=== PATIENT | female | born 1995 | race Hispanic/Latino ===

== ENCOUNTER 2025-03-02 10:26 | Emergency (ER) | payer OTHER, SELFPAY ==
[2025-03-02] VITALS (16 sets, daily range): BP systolic 123–141; BP diastolic 60–95; PULSE 62–88; RESP 14–22; TEMP 36.9; O2SAT 98–100
--- NOTE | ~2025-03-02 | CT_ITS ---
CT brain wo con Ordering provider: Prerna Ashley MD History: 29 years Female with . right facial droop . Comparison: None. Technique: CT of the head without contrast. Radiation reduction technique utilized.The dose-length pr oduct was 605.33 mGy-cm. FINDINGS: BRAIN PARENCHYMA AND CSF SPACES: No midline shift, mass effect or hemorrhage. The brain parenchyma a nd CSF spaces are otherwise normal. VISUALIZED PARANASAL SINUSES: Well aerated. MASTOIDS: Well aerated. BONES: The bones appear intact. SOFT TISSUES: Visualized nasopharynx is normal. Superficial soft tissues are normal. IMPRESSION: No acute intracranial findings. Reviewed, dictated and finalized at location A.
--- NOTE | ~2025-03-02 | CT_ITS ---
EXAMINATION: CTA BRAIN/CAROTID DATE: 03/02/2025 14:40 INDICATION: Headache and facial weakness TECHNIQUE: Computed tomographic angiography (CTA) of the head and neck was performed with 100 mL Omni paque-350 intravenous contrast. Multiplanar reconstructions and maximum intensity projection 3D-recon structions of the carotid arteries and of the intracranial arteries were created by the technologist on a separate workstation. Automated exposure control and iterative reconstruction technique were emp loyed.The dose-length product was 1126.15 mGy-cm. COMPARISON: None. FINDINGS: Carotid arteries: Aortic arch and great vessels arising from the arch are normal in caliber with no atherosclerotic joss que or dissection. There is no evident atherosclerotic plaque with 0% stenosis of the right and left carotid bulbs relative to normal distal artery lumen diameter (NASCET criteria). Bilateral vertebral arteries are codominant with no evident atherosclerotic plaque or stenosis. Cervical soft tissues are unremarkable. Diffuse groundglass opacities in the upper lungs likely related to expiratory phase of imaging. Bones are unremarkable. Intracranial arteries Vertebral arteries are codominant. There is no hemodynamically significant stenosis in the vertebral, basilar and internal carotid arteries. Both A1 and P1 segments are patent. There is also a patent an terior communicating artery. There are no aneurysms identified. Cerebral arterial arborization appea rs symmetric. No abnormally enhancing brain lesions. IMPRESSION: 1. No evident atherosclerotic plaque with 0% stenosis of the right carotid bulb relative to normal di stal artery lumen diameter (NASCET criteria). 2. Unremarkable cerebral CT angiogram with no hemodynamically significant stenosis, aneurysm or disse ction. Reviewed, dictated and finalized at location A. IMPRESSION: 1. No evident atherosclerotic plaque with 0% stenosis of the right carotid bulb relative to normal distal artery lumen diameter (NASCET criteria). 2. Unremarkable cerebral CT angiogram with no hemodynamically significant steno sis, aneurysm or dissection.
--- NOTE | ~2025-03-02 | XR_ITS ---
Portable chest x-ray Comparison: None Clinical History: Chest pain Findings: Lungs are clear, without focal consolidation or pleural effusion. Cardiomediastinal silho uette is unremarkable. Bones and soft tissues are unremarkable. Impression: Normal chest. Reviewed, dictated and finalized at location . Impression: Normal chest.
--- NOTE | 2025-03-02 11:17 | ECG_ITS ---
Test Date: 2025-03-02 11:32:44 Measurements Intervals [place] Rate: 74 P: 32 [place]: 161 QRS: 42 QRSD: 80 T: 9 QT: 362 QTc: 403 Interpretive Statements SINUS RHYTHM NORMAL ELECTROCARDIOGRAM No previous ECG available for comparison Electronically Signed On 03-02-2025 15:45:19 CDT by Jacobo Quintero M.D.
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
--- OUTSIDE RECORDS SUMMARY | 2025-03-02 11:19 | XMS_ITS | Referral Summary ---
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, severe stage (Primary Dx) 12/31/2024 8:00 AM RN HEMATOLOGY Imaging Exam [facility] Ophthalmology [address] [place] [address] [phone] 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 Never 11/27/2022 Do you belong to any clubs o r organizations such as congregation groups, unions, fraternal or athletic groups, or [...] medical care, and heating? Somewhat hard 11/27/2022 [facility] - Occupational Stress [...] place to sleep or slept in a nursing home (including now)? 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 OCT, OPTIC NERVE - OU - BOTH EYES Routine 12/31/2024 7:48 AM RN HEMATOLOGY 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 PAP WITH REFLEX TO HIGH RISK HPV Routine 12/12/2022 4:18 PM RN HEMATOLOGY , unspecified gestational age HEPATITIS C ANTIBODY Routine 11/27/2022 12:22 PM RN HEMATOLOGY care, antepartum from Last 3 Months or Most Recently Relevant to Health Maintenance Results * Ruiz Visual Field - OU - Both Eyes (12/31/2024 8:14 AM RN HEMATOLOGY) Pattern Deviation OS 1.30 dB CONTINUUM Pattern Deviation OD 16.32 dB CONTINUUM Mean Deviation OS -0.22 dB CONTINUUM Mean Deviation OD -15.52 dB CONTINUUM Anatomical Region Laterality Modality Head Other Narrative 12/31/2024 5:32 PM RN HEMATOLOGY Right Eye Fixation was good. Cooperation was [...] hemifield deficit with central sparing OS: wnl us Cely Rubio MD OPH VISUAL FIELD Final Result * OCT, Optic Nerve - OU - Both Eyes (12/31/2024 7:48 AM RN HEMATOLOGY) RNFL OS 110 micrometers CONTINUUM RNFL OD 66 micrometers CONTINUUM Anatomical Region Laterality Modality Head Other Narrative 12/31/2024 5:32 PM RN HEMATOLOGY Right Eye Reliability was good. Temporal thickness [...] to High Risk HPV (12/12/2022 4:18 PM RN HEMATOLOGY) Thin prep (Pap test) 12/12/2022 4:18 PM RN HEMATOLOGY 12/12/2022 5:24 PM RN HEMATOLOGY Narrative PATHOLOGY [facility] - 12/16/2022 12:08 PM RN HEMATOLOGY EPIC results best viewed via link to PDF [facility] [place] [address] Note to Patients: This report may contain [...] the details. CYTOPATHOLOGY REPORT FINAL Patient Name: ALEJANDRO JENSEN Gender: F : 1995 (Age: 27) Address: [address] [place] [address] Hospital #: [id number] Service: UNKNOWN Location: Patient Type: [facility] SPECIMEN Taken: 12/12/2022 Received: 12/12/2022 Accessioned: 12/12/2022 Reported: 12/16/2022 Physician(s): Ariela Dias MD FINAL INTERPRETATION SOURCE OF SPECIMEN Liquid based Thin Prep pap with Reflex HPV: STATEMENT OF ADEQUACY - Satisfactory for evaluation - Endocervical cells/transformation zone sample present GENERAL CATEGORIZATION: - Negative for squamous intraepithelial lesion or malignancy DESCRIPTION: - Shift in otto suggestive of bacterial vaginosis ml/12/16/2022 12:08 Brandy Santos MS, CT (ASCP) Report Electronically Reviewed and Signed Out By Brandy Santos MS, CT (ASCP) 12/16/2022 12:08:17 Cervicovaginal Cytology (Pap Test) Disclaimer: The Pap test is a screening test used to detect cervical cancer and its precursors; it is not a diagnostic procedure. False negative and false positive results do occur. Pap test results should be interpreted in the context of pertinent clinical information and biopsy results as indicated. [facility] Clinical Laboratory Improvement Amendments (CLIA) mandate that cytologic and histologic results be correlated for laboratory quality control chemist & improvement standards. FOR ALL HIGH-GRADE CASES [...] determined by the Surgical Pathology Department at [facility] as part of an ongoing plant quality manager program and in compliance with federally mandated [...] determined by the Surgical Pathology Department of [facility]. It has not been cleared or approved by the [place]. [place]. Food and Drug Administration. Ariela Dias MD LAB CYTOLOGY ORDERABLES Final Result PATHOLOGY [facility] [address] Floor [place], [place] [phone] * Hepatitis C antibody (11/27/2022 12:22 PM RN HEMATOLOGY) Hep C Ab Nonreactive Nonreactive [facility] Comment:Antibodies to HCV no t detected. Does NOT exclude the possibility of recent exposure to HCV. Current interpretive data was last revised on 22 Blood 11/27/2022 12:2 2 PM RN HEMATOLOGY 11/27/2022 2:06 PM RN HEMATOLOGY us Ariela Dias MD LAB MICROBIOLOGY - GENER AL ORDERABLES Final Result [facility] Department [place] [address] from Last 3 Months or Most Recently Relevant to Health Maintenance Insurance [facility] Advance Directives For more information, please contact: [phone] * Full Code (Latest Code Status on File) Date Activated Date Inactivated Comments 05/30/2023 10:01 AM 06/01/2023 5:11 PM * Full Code Date Activated Date Inactivated Comments 05/29/2023 9:25 AM 05/30/2023 10:01 AM Full CPR in c ase of cardiopulmonary arrest Care Teams Show Card Writer Relationship Specialty Start Date End Date Leta Graff PA [address] [place] [address] PCP - General 03/13/20 Norma Kevin, [employer] [place] [address] Primary Eye Care Provider Optometry 02/06/22
--- OUTSIDE RECORDS SUMMARY | 2025-03-02 11:20 | XMS_ITS | Data Portability ---
Author Organization [facility] JAILENEJessi Oliva Address [address] [place] [address] Care Team Providers Care Lubricating Specialist Name Role Phone GIA BRADLEY Primary Care Provider Assessment Encounter Date Assessment Date Assessment LastModified by Organization Details LastModified Time 03/03/2021 03/03/2021 SEBASTIAN Tam Not available 03/03/2021 12:58:48 03/20/2022 03/20/2022 SEBASTIAN Jacinto Not available 03/20/2022 13:03:28 04/03/2022 04/03/2022 SEBASTIAN Jacinto [email or web address] Not available 04/03/2022 13:42:13 Plan of Treatment Reminders Order Date Submit Date Provider Last Modified By Organization Details Last Modified Time Details Appointments None recorded. Lab TSH, ultra-sens itive, serum 2021 022 [facility], [address], [address], [place], [address], 07:12:53 HbA1c (hemoglobi n A1c), blood 2021 022 [facility], [address], [address], [place], [address], 07:12:51 CMP, serum or plasma 2021 022 [facility], [address], [address], [place], [address], 2 07:12:47 CBC w/ auto diff 2021 [facility], 2022 Mirna Williamson, [address], [place], [address], 2 07:12:46 vitamin D, 25-hydroxy , total, serum 2021 [facility], 2022 Mirna Wliliamson, [address], [place], [address], 2 07:12:52 lipid panel, serum 2021 [facility], 2022 [address], [address], [place], [address], 2 07:12:50 urinalysis , complete 2021 [facility], 2022 Mir[address] Williamson, [address], [place], [address], 2 07:12:49 Referral orthopedic referral - Possible right distal fibula fracture - waiting on OSH xray reports, w/o crutches or splint 2020 [facility], [address], [place], [address], 15:32:51 Procedures None recorded. Surgeries None recorded. Imaging XR, lumbosacra l spine, 2 or 3 view 2021 [facility] ([facility]), [address] [place], [address], 2 15:07:04 Medication Orders fluoxetine 40 mg capsule 2021 [id number], [address], [place], [id number], 10:48:03 cyclobenza leydi 10 mg tablet 2021 [id number], [address], [place], [id number], 13:22:55 fluoxetine 20 mg tablet [address] [facility]04286, [address], [place], [id number], 10:48:01 amoxicilli n 875 mg tablet 2021 [facility]110, [address], [place], [id number], 11:58:11 dextrometh orphan-gua ifenesin 10 mg-100 mg/5 mL oral syrup 2021 [facility]854, [address], [place], [id number], 11:58:37 diclofenac sodium 75 mg tablet,del ayed release 2021 [facility]57258, [address], [place], [id number], 12:40:52 fluoxetine 20 mg capsule 2021 022 [facility] #77709, [address], [place], [id number], 12:41:02 tramadol 50 mg tablet [address] [facility][id number], [address], [place], [id number], 09:30:45 ibuprofen 800 mg tablet 2020 021 [facility] #85416, [address] [place], [id number], 09:43:08 Patient TargetsNo targets recorded. Patient Instructions Encounter Date Encounter Id Patient Instructions Last Modified By Organization Details Last Modified Time 03/20/2022 [id number] learning about control: the patch Not available 03/20/2022 10:46:27 learning about control: combination pills Not available 03/20/2022 10:46:27 learning about control: the ring Not available 03/20/2022 10:46:27 learning about control: the shot Not available 03/20/2022 10:46:27 learning about control: intrauterine device (iud) Not available 03/20/2022 10:46:27 A healthy lifestyle: care instructions Not available 03/20/2022 10:45:16 07/07/2022 [id number] A healthy lifestyle: care instructions Not available 07/07/2022 14:20:35 07/21/2022 [id number] A healthy lifestyle: care instructions Not available 07/21/2022 10:47:19 Reason for Referral Orthopedic Referral for Frac ture of ankle Possible right distal fibula fracture - waiting on OSH xray reports, w/o crutches or splint Referring Physician: Gia Bradley, Beach Attendant, Encounter Date: 03/03/2021 Results Created Date Observation Date Name Description Value Unit Range Abnormal Flag Note LastModifiedBy Organization Detail LastModifiedTime 03/20/20 22 03/21/2022 CBC WITH DIFFE RENTI AL/PL ATELE T WBC 11.6 x10e3 /uL 3.4-10 .8 above high normal Not Available [facility] ([facility]) [address] [facility], [place], [address], 03/21/2022 07:12:46 03/20/20 22 03/21/2022 CBC WITH DIFFE RENTI AL/PL ATELE T RBC 4.96 x10e6 /uL 3.77-5 .28 Not Available [facility] ([facility]) [address] [place], [address], 03/21/2022 07:12:46 03/20/20 22 03/21/2022 CBC WITH DIFFE RENTI AL/PL ATELE T hemoglobin 15.1 g/dL 11.1-1 5.9 Not Available [facility] ([facility]) [address] [place], [address], 03/21/2022 07:12:46 03/20/2003/21/2022 CBC WITH DIFFE RENTI AL/PL ATELE T hematocrit 46.8 % 34.0-4 6.6 above high normal Not Available [facility] ([facility]) [address] [place], [address], 03/21/2022 07:12:46 03/20/20 22 03/21/2022 CBC WITH DIFFE RENTI AL/PL ATELE T MCV 94 fL 79-97 Not Available [facility] ([facility]) [address] [place], [address], 03/21/2022 07:12:46 03/20/20 22 03/21/2022 CBC WITH DIFFE RENTI AL/PL ATELE T MCH 30.4 pg 26.6-3 3.0 Not Available [facility] ([facility]) [address] [place], [address], 03/21/2022 07:12:46 03/20/20 22 03/21/2022 CBC WITH DIFFE RENTI AL/PL ATELE T MCHC 32.3 g/dL 31.5-3 5.7 Not Available [facility] ([facility]) [address] [place], [address], 03/21/2022 07:12:46 03/20/20 22 03/21/2022 CBC WITH DIFFE RENTI AL/PL ATELE T RDW 12.4 % 11.7-1 5.4 Not Available [facility] ([facility]) [address] [facility], [place], [address], 03/21/2022 07:12:46 03/20/20 22 03/21/2022 CBC WITH DIFFE RENTI AL/PL ATELE T platelets 372 x10e3 /uL 150-45 0 Not Available [facility] ([facility]) [address] [facility], [place], [address], 03/21/2022 07:12:46 03/20/20 22 03/21/2022 CBC WITH DIFFE RENTI AL/PL ATELE T neutrophils 61 % not estab. Not Available [facility] ([facility]) [address] [facility], [place], [address], 03/21/2022 07:12:46 03/20/20 22 03/21/2022 CBC WITH DIFFE RENTI AL/PL ATELE T lymphs 30 % not estab. Not Available [facility] ([facility]) [address] [place], [address], 03/21/2022 07:12:46 03/20/20 22 03/21/2022 CBC WITH DIFFE RENTI AL/PL ATELE T monocytes 7 % not estab. Not Available [facility] ([facility]) [address] [place], [address], 03/21/2022 07:12:46 03/20/20 22 03/21/2022 CBC WITH DIFFE RENTI AL/PL ATELE T eos 1 % not estab. Not Available [facility] ([facility]) [address] [place], [address], 03/21/2022 07:12:46 03/20/20 22 03/21/2022 CBC WITH DIFFE RENTI AL/PL ATELE T basos 0 % not estab. Not Available [facility] ([facility]) [address] [place], [address], 03/21/2022 07:12:46 03/20/20 22 03/21/2022 CBC WITH DIFFE RENTI AL/PL ATELE T immature cells LIFT TRUCK MECHANIC Not Available [facility] ([facility]) [address] [place], [address], 03/21/2022 07:12:46 03/20/20 22 03/21/2022 CBC WITH DIFFE RENTI AL/PL ATELE T neutrophils (absolute) 7.1 x10e3 /uL 1.4-7. 0 above high normal Not Available [facility] ([facility]) [address] [place], [address], 03/21/2022 07:12:46 03/20/20 22 03/21/2022 CBC WITH DIFFE RENTI AL/PL ATELE T lymphs (absolute) 3.5 x10e3 /uL 0.7-3. 1 above high normal Not Available [facility] ([facility]) [address] [place], [address], 03/21/2022 07:12:46 03/20/20 22 03/21/2022 CBC WITH DIFFE RENTI AL/PL ATELE T monocytes(ab solute) 0.8 x10e3 /uL 0.1-0. 9 Not Available [facility] ([facility]) [address] [place], [address], 03/21/2022 07:12:46 03/20/20 22 03/21/2022 CBC WITH DIFFE RENTI AL/PL ATELE T eos (absolute) 0.1 x10e3 /uL 0.0-0. 4 Not Available [facility] ([facility]) [address] [place], [address], 03/21/2022 07:12:46 03/20/20 22 03/21/2022 CBC WITH DIFFE RENTI AL/PL ATELE T baso (absolute) 0.0 x10e3 /uL 0.0-0. 2 Not Available [facility] ([facility]) [address] [facility] [place], [address], 03/21/2022 07:12:46 03/20/20 22 03/21/2022 CBC WITH DIFFE RENTI AL/PL ATELE T immature granulocytes 1 % not estab. Not Available [facility] ([facility]) [address] [facility], [place], [address], 03/21/2022 07:12:46 03/20/20 22 03/21/2022 CBC WITH DIFFE RENTI AL/PL ATELE T immature grans (abs) 0.1 x10e3 /uL 0.0-0. 1 Not Available [facility] ([facility]) [address] [facility], [place], [address], 03/21/2022 07:12:46 03/20/20 22 03/21/2022 CBC WITH DIFFE RENTI AL/PL ATELE T NRBC LIFT TRUCK MECHANIC Not Available [facility] ([facility]) [address] [facility], [place], [address], 03/21/2022 07:12:46 03/20/20 22 03/21/2022 CBC WITH DIFFE RENTI AL/PL ATELE T hematology comments: LIFT TRUCK MECHANIC Not Available [facility] ([facility]) [address] [place], [address], 03/21/2022 07:12:46 03/20/20 22 03/21/2022 COMP. METAB OLIC PANEL (14) glucose 103 mg/dL 65-99 above high normal Not Available [facility] ([facility]) [address] [place], [address], 03/21/2022 07:12:47 03/20/20 22 03/21/2022 COMP. METAB OLIC PANEL (14) BUN 11 mg/dL 6-20 Not Available [facility] ([facility]) [address] [place], [address], 03/21/2022 07:12:47 03/20/20 22 03/21/2022 COMP. METAB OLIC PANEL (14) creatinine 0.67 mg/dL 0.57-1 .00 Not Available [facility] ([facility]) [address] [place], [address], 03/21/2022 07:12:47 03/20/20 22 03/21/2022 COMP. METAB OLIC PANEL (14) eGFR 125 mL/mi n/1.7 3 >59 Not Available [facility] ([facility]) [address] [facility] [place], [address], 03/21/2022 07:12:47 03/20/20 22 03/21/2022 COMP. METAB OLIC PANEL (14) BUN/creatini ne ratio 16 9-23 Not Available [facility] ([facility]) [address] [facility] [place], [address], 03/21/2022 07:12:47 03/20/20 22 03/21/2022 COMP. METAB OLIC PANEL (14) sodium 141 mmol/ L 134-14 4 Not Available [facility] ([facility]) [address] [facility] [place], [address], 03/21/2022 07:12:47 03/20/20 22 03/21/2022 COMP. METAB OLIC PANEL (14) potassium 4.6 mmol/ L 3.5-5. 2 Not Available [facility] ([facility]) [address] [facility] [place], [address], 03/21/2022 07:12:47 03/20/20 22 03/21/2022 COMP. METAB OLIC PANEL (14) chloride 106 mmol/ L 96-106 Not Available [facility] ([facility]) [address] [facility] [place], [address], 03/21/2022 07:12:47 03/20/20 22 03/21/2022 COMP. METAB OLIC PANEL (14) carbon dioxide, total 16 mmol/ L 20-29 below low normal Not Available [facility] ([facility]) [address] [facility], [place], [address], 03/21/2022 07:12:47 03/20/20 22 03/21/2022 COMP. METAB OLIC PANEL (14) calcium 9.6 mg/dL 8.7-10 .2 Not Available [facility] ([facility]) [address] [facility], [place], [address], 03/21/2022 07:12:47 03/20/20 22 03/21/2022 COMP. METAB OLIC PANEL (14) protein, total 7.5 g/dL 6.0-8. 5 Not Available [facility] ([facility]) [address] [facility], [place], [address], 03/21/2022 07:12:47 03/20/20 22 03/21/2022 COMP. METAB OLIC PANEL (14) albumin 4.4 g/dL 3.9-5. 0 Not Available [facility] ([facility]) [address] [facility], [place], [address], 03/21/2022 07:12:47 03/20/20 22 03/21/2022 COMP. METAB OLIC PANEL (14) globulin, total 3.1 g/dL 1.5-4. 5 Not Available [facility] ([facility]) [address] [facility], [place], [address], 03/21/2022 07:12:47 03/20/20 22 03/21/2022 COMP. METAB OLIC PANEL (14) A/G ratio 1.4 1.2-2. 2 Not Available [facility] ([facility]) [address] [facility], [place], [address], 03/21/2022 07:12:47 03/20/20 22 03/21/2022 COMP. METAB OLIC PANEL (14) bilirubin, total <0.2 mg/dL 0.0-1. 2 Not Available [facility] ([facility]) [address] [place], [address], 03/21/2022 07:12:47 03/20/20 22 03/21/2022 COMP. METAB OLIC PANEL (14) alkaline phosphatase 121 IU/L 44-121 Not Available [facility] ([facility]) [address] [facility], [place], [address], 03/21/2022 07:12:47 03/20/20 22 03/21/2022 COMP. METAB OLIC PANEL (14) AST (SGOT) 21 IU/L 0-40 Not Available [facility] ([facility]) [address] [facility], [place], [address], 03/21/2022 07:12:47 03/20/20 22 03/21/2022 COMP. METAB OLIC PANEL (14) ALT (SGPT) 18 IU/L 0-32 Not Available [facility] ([facility]) [address] [place], [address], 03/21/2022 07:12:47 03/20/20 22 03/21/2022 URINA LYSIS , COMPL ETE specific gravity 1.027 1.005- 1.030 Not Available [facility] ([facility]) [address] [place], [address], 03/21/2022 07:12:48 03/20/20 22 03/21/2022 URINA LYSIS , COMPL ETE pH 5.5 5.0-7. 5 Not Available [facility] ([facility]) [address] [place], [address], 03/21/2022 07:12:48 03/20/20 22 03/21/2022 URINA LYSIS , COMPL ETE urine-color Yellow yellow Not Available [facility] ([facility]) [address] [place], [address], 03/21/2022 07:12:48 03/20/20 22 03/21/2022 URINA LYSIS , COMPL ETE appearance Clear clear Not Available [facility] ([facility]) [address] [facility], [place], [address], 03/21/2022 07:12:48 03/20/20 22 03/21/2022 URINA LYSIS , COMPL ETE WBC esterase Negati ve negati ve Not Available [facility] ([facility]) [address] [facility], [place], [address], 03/21/2022 07:12:48 03/20/20 22 03/21/2022 URINA LYSIS , COMPL ETE protein Negati ve negati ve/tra ce Not Available [facility] ([facility]) [address] [facility], [place], [address], 03/21/2022 07:12:48 03/20/20 22 03/21/2022 URINA LYSIS , COMPL ETE glucose Negati ve negati ve Not Available [facility] ([facility]) [address] [facility], [place], [address], 03/21/2022 07:12:48 03/20/20 22 03/21/2022 URINA LYSIS , COMPL ETE ketones Negati ve negati ve Not Available [facility] ([facility]) [address] [place], [address], 03/21/2022 07:12:48 03/20/20 22 03/21/2022 URINA LYSIS , COMPL ETE occult blood Negati ve negati ve Not Available [facility] ([facility]) [address] [place], [address], 03/21/2022 07:12:48 03/20/20 22 03/21/2022 URINA LYSIS , COMPL ETE bilirubin Negati ve negati ve Not Available [facility] ([facility]) [address] [facility], [place], [address], 03/21/2022 07:12:48 03/20/20 22 03/21/2022 URINA LYSIS , COMPL ETE urobilinogen ,semi-qn 0.2 mg/dL 0.2-1. 0 Not Available [facility] ([facility]) [address] [facility], [place], [address], 03/21/2022 07:12:48 03/20/20 22 03/21/2022 URINA LYSIS , COMPL ETE nitrite, urine Negati ve negati ve Not Available [facility] ([facility]) [address] [facility], [place], [address], 03/21/2022 07:12:48 03/20/20 22 03/21/2022 URINA LYSIS , COMPL ETE microscopic examination Commen t Micro scopi c follo ws if indic ated. Not Available [facility] ([facility]) [address] [facility], [place], [address], 03/21/2022 07:12:48 03/20/20 22 03/21/2022 URINA LYSIS , COMPL ETE microscopic examination See below: Micro scopi c was indic ated and was perfo rmed. Not Available [facility] ([facility]) [address] [facility], [place], [address], 03/21/2022 07:12:48 03/20/20 22 03/21/2022 URINA LYSIS , COMPL ETE WBC None seen /hpf 0 - 5 Not Available [facility] ([facility]) [address] [facility], [place], [address], 03/21/2022 07:12:48 03/20/20 22 03/21/2022 URINA LYSIS , COMPL ETE RBC None seen /hpf 0 - 2 Not Available [facility] ([facility]) [address] [facility], [place], [address], 03/21/2022 07:12:48 03/20/20 22 03/21/2022 URINA LYSIS , COMPL ETE epithelial cells (non renal) 0-10 /hpf 0 - 10 Not Available [facility] ([facility]) [address] [facility], [place], [address], 03/21/2022 07:12:48 03/20/20 22 03/21/2022 URINA LYSIS , COMPL ETE epithelial cells (renal) LIFT TRUCK MECHANIC Not Available [facility] ([facility]) [address] [facility], [place], [address], 03/21/2022 07:12:48 03/20/20 22 03/21/2022 URINA LYSIS , COMPL ETE casts None seen /lpf none seen Not Available [facility] ([facility]) [address] [facility], [place], [address], 03/21/2022 07:12:48 03/20/20 22 03/21/2022 URINA LYSIS , COMPL ETE cast type LIFT TRUCK MECHANIC Not Available [facility] ([facility]) [address] [facility], [place], [address], 03/21/2022 07:12:48 03/20/20 22 03/21/2022 URINA LYSIS , COMPL ETE crystals LIFT TRUCK MECHANIC Not Available [facility] ([facility]) [address] [facility] [place], [address], 03/21/2022 07:12:48 03/20/20 22 03/21/2022 URINA LYSIS , COMPL ETE crystal type LIFT TRUCK MECHANIC Not Available [facility]) [address] [facility], [place], [address], 03/21/2022 07:12:48 03/20/20 22 03/21/2022 URINA LYSIS , COMPL ETE mucus threads LIFT TRUCK MECHANIC Not Available [facility] ([facility]) [address] [facility], [place], [address], 03/21/2022 07:12:48 03/20/20 22 03/21/2022 URINA LYSIS , COMPL ETE bacteria Few none seen/f ew Not Available [facility] ([facility]) [address] [facility], [place], [address], 03/21/2022 07:12:48 03/20/20 22 03/21/2022 URINA LYSIS , COMPL ETE yeast LIFT TRUCK MECHANIC Not Available [facility] ([facility]) [address] [facility], [place], [address], 03/21/2022 07:12:48 03/20/20 22 03/21/2022 URINA LYSIS , COMPL ETE trichomonas LIFT TRUCK MECHANIC Not Available [facility] ([facility]) [address] [place], [address], 03/21/2022 07:12:48 03/20/20 22 03/21/2022 URINA LYSIS , COMPL ETE comment LIFT TRUCK MECHANIC Not Available [facility] ([facility]) [address] [place], [address], 03/21/2022 07:12:48 03/20/20 22 03/21/2022 LIPID PANEL cholesterol, total 159 mg/dL 100-19 9 Not Available [facility] ([facility]) [address] [place], [address], 03/21/2022 07:12:50 03/20/20 22 03/21/2022 LIPID PANEL triglyceride s 105 mg/dL 0-149 Not Available [facility] ([facility]) [address] [place], [address], 03/21/2022 07:12:50 03/20/20 22 03/21/2022 LIPID PANEL HDL cholesterol 45 mg/dL >39 Not Available [facility]) [address] [place], [address], 03/21/2022 07:12:50 03/20/20 22 03/21/2022 LIPID PANEL VLDL cholesterol jazmin 19 mg/dL 5-40 Not Available [facility] ([facility]) [address] [place], [address], 03/21/2022 07:12:50 03/20/20 22 03/21/2022 LIPID PANEL LDL chol calc ([facility]) 95 mg/dL 0-99 Not Available [facility]) [address] [place], [address], 03/21/2022 07:12:50 03/20/20 22 03/21/2022 LIPID PANEL comment: LIFT TRUCK MECHANIC Not Available [facility] ([facility]) [address] [facility], [place], [address], 03/21/2022 07:12:50 03/20/20 22 03/21/2022 HEMOG LOBIN A1C hemoglobin A1C 5.9 % 4.8-5. 6 above high normal Predi abete s: 5.7 - 6.4 Diabe jj: >6.4 Glyce amy contr ol for adult s with diabe jj: <7.0 Not Available [facility] ([facility]) [address] [place], [address], 03/21/2022 07:12:51 03/20/20 22 03/21/2022 VITAM IN D, 25-HY DROXY vitamin D, 25-hydroxy 18.1 NG/mL 30.0-1 00.0 below low normal Vitam in D defic iency has been defin ed by the Insti tute of Medic ine and an Endoc rine Socie ty pract ice guide line as a level of serum 25-OH vitam in D less than 20 ng/mL (1,2) . The Endoc rine Socie ty went on to furth er defin e vitam in D insuf ficie ncy as a level betwe en 21 and 29 ng/mL (2). 1. IOM (Inst itute of Medic ine). 2010. Dieta ry refer ence yoly es for calci um and D. Magy griffin [place]: The Natio nal [employer] . 2. Jazmin moya MF, Zacarias ey [place], Bisch off-F errar i MEIER, et al. Evalu ation , treat ment, and preve ntion of vitam in D defic iency : an Endoc rine Socie ty clini jazmin pract ice guide line. JCEM. 2010; 96(7) :1911 -30. Not Available [facility] ([facility]) [address] [facility] [place], [address], 03/21/2022 07:12:52 03/20/20 22 03/21/2022 TSH RFX ON ABNOR MAL TO FREE T4 TSH 1.360 uIU/m L 0.450- 4.500 Not Available [facility] ([facility]) [address] [facility], [place], [address], 03/21/2022 07:12:53 07/21/20 22 07/21/2022 XR, lumbo sacra l spine , 2 or 3 view No observ ation record ed. [facility] [address] [place], [address], 07/27/2022 14:25:11 02/24/20 24 02/24/2024 CT, abdom en + pelvi s, w/ contr ast No observ ation record ed. [email or web address] [facility] [address] [place], [address], 02/28/2024 17:18:51 02/25/20 24 02/25/2024 US, abdom en No observ ation record ed. [email or web address] [place], [address], 02/28/2024 17:19:25 Result Notes None recorded. Problems Name Problem SNOMED Code Status Onset Date Resolution Date Notes Provider Name and Address Organization Details Recorded Time Pregnanc y 95287594 Completed 201904/12/2020 Mushtaq stearns [place] - [facility] 0 10:07:47 Obesity 239063603 Completed Dana Francisco GANESH null, [place] - [facility] 0 12:15:13 Bacteria l vaginosi s in pregnanc y [id number] 9109 Completed 2019 Dana MaryamGANESH null, [place] [facility] 0 12:15:13 Bacteria l vaginosi s in pregnanc y 96387950667 9109 Completed 201911/17/2020 NELLIE SALDAÑA Attn: Accounting ,[address] [place], [address] , [place] - [facility] 1 09:08:30 Abnormal progeste jimmy 990072861 Completed 2019 Dana Francisco G[place]ESH [place] [facility] 0 12:15:13 Abnormal progeste jimmy [id number] Active 2019 Dana FranciscoGANESH [place] [facility] 0 12:15:13 Herpes simplex type 2 infectio n 943132585 Completed 2019 [place]GANESH [place] [facility] 0 12:15:13 Herpes simplex type 2 infectio n 888586633 Active 2019 Dana Francisco [place] null, [place] [facility] 0 12:15:13 Subchori onic hematoma 223344766 Active 2019 resolved Dana FranciscoGANESH [place] [facility] 0 12:15:13 Subchori onic hematoma 996351924 Completed 2019 resolved Dana Francisco [place] [facility] 0 12:15:13 Depressi ve disorder 40609551 Completed Dana Francisco [place] [facility] 0 12:15:13 Hypereme sis gravidar 02218568 Completed 2019 Dana Francisco [place] null, [place] [facility] 0 12:15:13 Hypereme sis gravidar um 67508361 Active 2019 Dana Francisco [place] null, [place] - [facility] 0 12:15:13 Syncope [id number] Active 2019 Followin g with Cardiolo gy, likely vagal response but plan for echo and 24 hour holter monitor. NELLIE SALDAÑA Attn: Accounting ,[address] [facility], [place], [address] , [place] - [facility] 0 16:14:28 Glucose toleranc e test outside referenc e range 289409693 Active 2019 Dana Francisco [place], [place] [facility] 0 12:15:13 Glucose toleranc e test outside referenc e range [id number] Completed 2019 Dana [place] [facility] 0 12:15:13 Gestatio nal diabetes mellitus 82793050 Completed 2019 Dana [place] [facility] 0 12:15:13 Gestatio nal diabetes mellitus 51685637 Active 2019 Dana [place] [facility] 0 12:15:13 Impaired glucose toleranc e 3401793 Active 2021 NELLIE SALDAÑA Attn: Accounting ,[address] [facility], [place], [place], [address] [place] [address] , [place] - [facility] 2 08:27:08 Vitamin D deficien cy 44720029 Active 2021 NELLIE SALDAÑA Attn: Accounting ,[address] [facility], [place], [place], [address] [place] [address] , [place] - [facility] 2 08:27:10 Knee pain Active Joe Marm[place]jo [place] [facility] 6 13:14:28 Obesity 865552284 Active Dana [place] [facility] 0 12:15:13 Glaucoma 06696434 Active Joe Marm[place]jo [place] [facility] 6 13:14:28 Depressi ve disorder 06365348 Active Dana [place] [facility] 0 12:15:13 Missed period 83025540 Completed 12/07/2019 NELLIE KING Attn: Accounting ,[address] [facility], [place], [address] , [facility] - [facility] 0 16:33:07 Infestat ion by biting lice [id number] Completed 201512/07/2019 NELLIE KING Attn: Accounting ,[address] [facility], [place], [address] , [facility] - [facility] 0 16:33:04 Problem Notes None recorded. Procedures Surgical History Date Name Laterality Status Provider Name and Address Organization Details Recorded Time 2 Control Implant Removal completed NELLIE SALDAÑA Attn: Accounting,[address] [facility], [place], [address], [facility] - [facility] 07/21/2022 13:21:17 0 Control Implant Insertion completed Mushtaq Honey [place] - [facility] 08/23/2020 17:56:58 0 I&D completed NELLIE KING Attn: Accounting,[address] [facility], [place], [address], [facility] - [facility] 12/07/2019 16:37:54 0 Date of Last Pap Smear completed Soledad Antoine [place] - [facility] 03/15/2020 12:45:36 9 Control Implant Removal completed NELLIE SALDAÑA Attn: Accounting,[address] [facility], [place], [address], [facility] - [facility] 08/05/2019 15:32:59 6 Control Implant Removal completed Soledad Antoine [place] - [facility] 11/25/2015 15:18:32 Imaging Results Imaging Date Name Status LastModified by Organiz ation Details LastModified Time 07/21/2022 XR, lumbosacral spine, 2 or 3 view completed [facility] [address] [place], [address], 07/27/2022 14:25:11 02/24/2024 CT, abdomen + pelvis, w/ contrast completed [email or web address] [facility] [address] [place], [address], 02/28/2024 17:18:51 02/25/2024 US, abdomen completed [facility] [address] [place], [address], 02/28/2024 17:19:25 Procedure Notes None recorded. Medical Equipment None Reported. Allergies No known drug allergies Medications Name Sig Start Date Stop Date Status Note LastModified by Organization Details LastModified Time multivitami n tablet Take 1 tablet every day by oral route. 03/03 completed Not Available Not Available Not Available fluoxetine 40 mg capsule Take 1 capsule every day by oral route in the morning for 30 days. active Not Available Not Available No t Available cyclobenzap rine 10 mg tablet TAKE 1 TABLET BY MOUTH EVERY DAY AT BEDTIME FOR 14 DAYS active Not Available Not Available No t Available latanoprost 0.005 % eye drops INSTILL 1 DROP IN BOTH EYES EVERY NIGHT AT BEDTIME active Not Available Not Available No t Available metformin 500 mg tablet Take 1 tablet twice a day by oral route. 03/03 completed Not Available Not Available Not Available azithromyci n 250 mg tablet TAKE 2 TABLETS BY MOUTH FOR 1 DAY THEN TAKE 1 TABLET BY MOUTH DAILY FOR 4 DAYS DIRECTED 03/20 completed Not Available Not Available Not Available ibuprofen 800 mg tablet TAKE 1 TABLET BY MOUTH THREE TIMES DAILY WITH MEALS FOR 14 DAYS 03/20 completed Not Available Not Available Not Available fluconazole 150 mg tablet Take 1 tablet by oral route. 11/17 completed Not Available Not Available Not Available citalopram 10 mg tablet 07/31 completed Not Available Not Available Not Available phenazopyri dine 200 mg tablet TAKE 1 TABLET BY MOUTH 3 TIMES A DAY FOR 2 DAYS 07/07 completed Not Available Not Available Not Available metronidazo le 0.75 % (37.5 mg/5 gram) vaginal gel Insert 1 applicato rful every day by vaginal route at bedtime for 7 days. 08/23 completed Not Available Not Available Not Available ondansetron HCl 4 mg tablet TAKE 1 TABLET BY MOUTH EVERY 8 HOURS NEEDED 08/23 completed Not Available Not Available Not Available prednisone 20 mg tablet TAKE 2 TABLETS BY MOUTH EVERY DAY FOR 5 DAYS 03/20 completed Not Available Not Available Not Available Tubersol 5 tub. unit/0.1 mL intradermal injection solution Administe r .1ml interderm ally 08/23 completed Not Available Not Available Not Available metronidazo le 500 mg tablet Take 1 tablet every 12 hours by oral route as directed for 7 days. 03/15 completed Not Available Not Available Not Available aspirin 81 mg tablet,anabella yed release Take 2 tablets every day by oral route. 08/23 completed Not Available Not Available Not Available tramadol 50 mg tablet TAKE 1 TABLET BY MOUTH EVERY DAY FOR 7 DAYS NEEDED 03/20 completed Not Available Not Available Not Available acetaminoph en 500 mg tablet Take 2 tablets every 6 hours by oral route as needed for 10 days. 03/03 completed Not Available Not Available Not Available acyclovir 800 mg tablet TAKE 1 TABLET BY MOUTH EVERY DAY 03/20 completed Not Available Not Available Not Available Vitamin tablet Take 1 tablet every day by oral route as directed for 90 days. 08/23 completed Not Available Not Available Not Available meloxicam 7.5 mg tablet 07/31 completed Not Available Not Available Not Available amoxicillin 875 mg tablet TAKE 1 TABLET BY MOUTH EVERY 8 HOURS WITH MEALS FOR 7 DAYS 07/07 completed Not Available Not Available Not Available Vitamin C 1,000 mg tablet Take 1 tablet every day by oral route as directed for 10 days. 03/03 completed Not Available Not Available Not Available metoclopram radha 5 mg tablet Take 1 tablet every 6-8 hours by oral route as needed. 11/17 completed Not Available Not Available Not Available DOK 100 mg capsule Take 1 capsule twice a day by oral route as needed. 03/03 completed Not Available Not Available Not Available benzonatate 100 mg capsule TAKE 1 CAPSULE BY MOUTH THREE TIMES DAILY FOR 10 DAYS NEEDED 04/03 completed Not Available Not Available Not Available cephalexin 500 mg capsule Take 1 capsule every 6 hours by oral route for 7 days. 03/15 completed Not Available Not Available Not Available fluoxetine 20 mg tablet TAKE 1 TABLET BY MOUTH EVERY DAY IN THE MORNING 07/21 completed Not Available Not Available Not Available triamcinolo ne acetonide 0.1 % topical ointment APPLY TOPICALLY TO THE AFFECTED AREA EVERY 12 HOURS NEEDED 07/07 completed Not Available Not Available Not Available ranitidine 150 mg tablet Take 1 tablet twice a day by oral route as directed for 30 days. 08/23 completed Not Available Not Available Not Available Humulin N NPH U-100 Insulin (isophane susp) 100 unit/mL subcutaneou s 03/03 completed Not Available Not Available Not Available progesteron e micronized 200 mg capsule Take 1 capsule twice a day by oral route. 08/23 completed Not Available Not Available Not Available omeprazole 20 mg capsule,del ayed release Take 1 capsule every day by oral route as directed for 30 days. 08/23 completed Not Available Not Available Not Available diclofenac sodium 75 mg tablet,anabella yed release TAKE 1 TABLET BY MOUTH TWICE DAILY WITH MEALS 07/07 completed Not Available Not Available Not Available alcohol swabs Apply 1 pad 4 times a day by topical route. 08/23 completed Not Available Not Available Not Available ergocalcife rol (vitamin D2) 1,250 mcg (50,000 unit) capsule TAKE 1 CAPSULE BY MOUTH EVERY WEEK DIRECTED 07/07 completed Not Available Not Available Not Available ibuprofen 600 mg tablet 07/31 completed Not Available Not Available Not Available methylpredn isolone 4 mg tablets in a dose pack FOLLOW PACKAGE DIRECTION S 07/07 completed Not Available Not Available Not Available albuterol sulfate HFA 90 mcg/actuati on aerosol inhaler INHALE 2 PUFFS BY MOUTH EVERY 4 HOURS FOR 10 DAYS NEEDED 07/07 completed Not Available Not Available Not Available ondansetron 4 mg disintegrat ing tablet 07/31 completed Not Available Not Available Not Available fluoxetine 20 mg capsule TAKE 1 CAPSULE BY MOUTH EVERY DAY IN THE MORNING 07/07 completed Not Available Not Available Not Available loratadine 10 mg tablet TAKE 1 TABLET BY MOUTH EVERY DAY FOR 14 DAYS DIRECTED 07/07 completed Not Available Not Available Not Available amoxicillin 875 mg-potassiu m clavulanate 125 mg tablet 07/31 completed Not Available Not Available Not Available neomycin-po lymyxin-hyd rocort 3.5 mg-10,000 unit/mL-1 % ear drops,susp INSTILL 4 DROPS INTO AFFECTED EAR(S) BY OTIC ROUTE 3 TIMES PER DAY X 5-7 DAYS 12/03 completed Not Available Not Available Not Available insulin syringe U-100 with needle 0.3 mL 30 11/17 completed Not Available Not Available Not Available escitalopra m 10 mg tablet Take 1 tablet every day by oral route. 03/03 completed Not Available Not Available Not Available nitrofurant oin monohydrate /macrocryst als 100 mg capsule TAKE 1 CAPSULE BY MOUTH EVERY 12 HOURS FOR 14 DAYS 07/07 completed Not Available Not Available Not Available Calcium with Vitamin D 600 mg-10 mcg (400 unit) tablet Take 1 tablet twice a day by oral route. 03/03 completed Not Available Not Available Not Available Vinate One 60 mg iron-1 mg tablet 03/03 completed Not Available Not Available Not Available Plus (calcium carbonate) 27 mg iron-1 mg tablet Take 1 tablet every day by oral route as directed for 100 days. 03/15 completed Not Available Not Available Not Available Calcium with Vit D3 600 mg (as carbonate)- 12.5 mcg (500 unit) capsule Take 1 capsule every day by oral route. 07/31 completed Not Available Not Available Not Available Nexplanon 68 mg subdermal implant Inject 1 implant by subcutane ous route. 07/21 completed Not Available Not Available Not Available 28 mg iron-800 mcg tablet 07/31 completed Not Available Not Available Not Available OneTouch Verio test strips Take 1 strip 4 times a day by miscell. route. 11/17 completed Not Available Not Available Not Available Fiber (psyllium husk-sugar) 3.4 gram/7 gram oral powder Take 1 tsp 3 times a day by oral route as needed for 30 days. 11/17 completed Not Available Not Available Not Available TRUEplus Insulin 0.3 mL 31 gauge x 5/16 syringe 11/17 completed Not Available Not Available Not Available OneTouch Verio Flex Meter 11/17 completed Not Available Not Available Not Available latanoprost (PF) 0.005 % eye drops 03/15 completed Not Available Not Available Not Available OneTouch Delica Plus Lancet 33 gauge 08/23 completed Not Available Not Available Not Available OneTouch Delica Plus Lancet 30 gauge 08/23 completed Not Available Not Available Not Available Chest Congestion Relief DM 10 mg-100 mg/5 mL oral syrup TAKE 10 ML BY MOUTH EVERY 4 HOURS FOR 4 DAYS NEEDED 07/07 completed Not Available Not Available Not Available Vitals Date Recorded Body height Body mass index (BMI) Body weight Heart rate Body temperature Oxygen saturation Oxygen saturation in Arterial blood by Pulse oximetry Systolic blood pressure Diastolic blood pressure Provider Name and Address Organization Details Last Updated DateTime 1 162.56 cm 42.5 kg/m2 251062. 12 g 95 /min 98.7 [degF] 98 % 98 % 102 mm[Hg] 72 mm[Hg] Darline Fontana MA [facility] 1 12:32:42 Date Recorded Body height Body mass index (BMI) Body weight Heart rate Body temperature Oxygen saturation Oxygen saturation in Arterial blood by Pulse oximetry Systolic blood pressure Diastolic blood pressure Provider Name and Address Organization Details Last Updated DateTime 2 162.56 cm 41.2 kg/m2 280171. 17 g 93 /min 98.7 [degF] 98 % 98 % 102 mm[Hg] 78 mm[Hg] Darline Fontana [place] - [facility] 2 09:55:03 Date Recorded Body height Body mass index (BMI) Body weight Heart rate Body temperature Oxygen saturation Oxygen saturation in Arterial blood by Pulse oximetry Systolic blood pressure Diastolic blood pressure Provider Name and Address Organization Details Last Updated DateTime 2 162.56 cm 41.1 kg/m2 367054. 38 g 81 /min 98.7 [degF] 98 % 98 % 120 mm[Hg] 78 mm[Hg] Darline Fontana MA [facility] 2 09:36:02 Date Recorded Body height Body mass index (BMI) Body weight Heart rate Body temperature Oxygen saturation Oxygen saturation in Arterial blood by Pulse oximetry Systolic blood pressure Diastolic blood pressure Provider Name and Address Organization Details Last Updated DateTime 2 162.56 cm 41.2 kg/m2 199239. 57 g 94 /min 98.7 [degF] 98 % 98 % 102 mm[Hg] 74 mm[Hg] Darline Fontana [place] [facility] 2 12:40:19 Date Recorded Body height Body mass index (BMI) Body weight Heart rate Oxygen saturation Oxygen saturation in Arterial blood by Pulse oximetry Systolic blood pressure Diastolic blood pressure Provider Name and Address Organization Details Last Updated DateTime 2 162.56 cm 40 kg/m2 028526. 02 g 88 /min 98 % 98 % 122 mm[Hg] 78 mm[Hg] Nancy Carrera [place] - [facility] 2 10:09:46 Social History Question Answer Notes LastModified by Organizat ion Details LastModified Time Tobacco Smoking Status Former Smoker 12/03/19--pt is just taking a hit off someone else's every now and then Dacia Barbosa MA [facility], [place] - [facility] 12/03/2019 14:16:57 Do You Have An Advance Directive? No Information not available 11/25/2015 What Is Your Level Of Alcohol Consumption? None Information not available 03/24/2016 If You Are , What Was Your Level Of Alcohol Consumption Prior To ? None Information not available 03/24/2016 How Many Years Have You Consumed Alcohol? 0 Information not available 03/15/2020 Animal Exposure? No [email or web address] Information not available 03/24/2015 Do You Wear A Helmet When Biking? No [email or web address] Information not available 03/24/2015 Is Blood Transfusion Acceptable In An Emergency? Yes Information not available 11/25/2015 Are You Or Have You Been Involved With Bullying? No [email or web address] Information not available 03/24/2015 What Is Your Level Of Caffeine Consumption? 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 None Information not available 11/25/2015 What Type Of Utility Bill Collector Do You Use? None [email or web address] Information not available 03/24/2015 Are You Currently Employed? No Information not available 11/25/2015 What Type Of Diet Are You Following? REGULAR Information not available 03/24/2015 Which Illicit Or Recreational Drugs Have You Used? No Pt States No Illegal Drugs Information not available 03/15/2020 Do You Or Have You Ever Used E-cigarettes Or Vape? Former User Of Electronic Cigarettes Information not available 12/03/2019 Education 11 Information no t available 11/25/2015 What Is Your Occupation? None Information not available 03/15/2020 Have There Been Any Changes To Your Family Or Social Situation? No [email or web address] Information not available 03/24/2015 What Is The Fluoride Status Of Your Home? Unknown [email or web address] Information not available 03/24/2015 Frequent Air Travel No Information not available 03/24/2016 Are There Any Guns Present In Your Home? No Information not available 03/24/2015 What Is Your Home Situation? Father [email or web address] Information not available 03/24/2015 Illicit Drugs Pre- No Information not available 03/15/2020 Do You Use Insect Repellent Routinely? No [email or web address] Information not available 03/24/2015 Live Alone Or With Others? With Others Information not available 11/25/2015 Car Seat Type Or Seat Belt? Seat Belt [email or web address] Information not available 03/24/2015 Riding In Car Front Seat? Yes [email or web address] Information not available 03/24/2015 Marital Status Single Informatio n not available 03/15/2020 What Was The Date Of Your Most Recent Tobacco Screening? 07/21/2022 Information not available 07/21/2022 How Many Children Do You Have? 0 Information not available 11/25/2015 Are There Any Occupational Health Risks Where You Work? No Information not available 03/15/2020 What Is Your Parents' Marital Status? [email or web address] Information not available 03/24/2015 Performs Monthly Self-breast Exam? Yes Information not available 11/25/2015 Pool Exposure Yes [email or web address] Information not available 03/24/2015 Do You Use Protection During Sex? No Information not available 11/25/2015 What Is Your Relationship Status? Domestic Partner Information not available 11/25/2015 What Is The Name Of Your School? [employer] Information not available 03/24/2015 Seat Belts Used Routinely No Information not available 11/25/2015 Are You Sexually Active? Yes Information not available 11/25/2015 Do You Have Any Siblings? 1 [email or web address] Information not available 03/24/2015 Do You Have Smoke And Carbon Monoxide Detectors In Your Home? Yes Information not available 03/24/2015 At What Age Did You Start Smoking Tobacco? 16 Information not available 03/15/2020 Are You Passively Exposed To Smoke? Yes Discussed Health Risks Of Second Hand Smoke. [email or web address] Information not available 03/24/2015 Do You Or Have You Ever Used Smokeless Tobacco? Never Used Smokeless Tobacco Information not available 03/15/2020 How Much Tobacco Do You Smoke? No Information not available 12/03/2019 Smoking Pre- Yes Information not available 03/15/2020 General Stress Level Low Information not available 11/25/2015 Do You Use Sunscreen Routinely? No [email or web address] Information not available 03/24/2015 [email or web address] not available 03/24/2016 On What Date Was Tobacco Cessation Counseling Provided? 07/21/2022 Information not available 07/21/2022 How Many Years Have You Smoked Tobacco? 8 Information not available 12/03/2019 Year In School 12 [email or web address] Informatio n not available 03/24/2015 Sex: Unknown Functional Status Question Answer Note LastModified by Organization D etails LastModified Time What is your exercise level? None Information not available 03/24/2015 Mental Status None recorded. Family History Relationship Description Onset Age of this Age Resolved Age Notes LastModified by Organization Details LastModified Time Mother Diabetes mellitus [email or web address] Not available 2015 13:15:18 Mother Hypertensive disorder [email or web address] Not available 2015 13:15:18 Mother Seizure [email or web address] Not available 03/24/2016 13:15:18 Medical History Condition Response Coronary Artery Disease N Kidney Cyst N Blood Diseases N Hyperthyroidism N Blood Transfusion N MRSA N Blood disorders N Emphysema N Blood Clots N COPD N Depression N Pneumonia N Premature N Peripheral Arterial Disease N Edema N TIA N Headaches/Migraines N Anxiety Disorder N Obesity N Infertility N Polyps N Acid Reflux (GERD) N Hematuria N Stroke N Neck Injury N Polio N Hospital Admission other than N Neurologic Disorder N Other Sleep Disorders N Rheumatoid Arthritis N Fibromyalgia N Abdominal Aortic Aneurysm Repair N Kidney Disease N Heart Conditions N Heart Disease/Heart Problems N Hospitalizations N Brain Tumors N Acne N Skin Problems N Eating Disorder N Meningitis N Constipation N Tuberculosis N Cerebral Palsy N Myocardial Infarction N Asthma N Substance Abuse N Peripheral Vascular Disease N Vertigo N Sleep Disorder N Cirrhosis N Pulmonary Embolism N Chicken Pox N Hematologic Disease N Flomax Use Past or Present N Anxiety/Depression N Thyroid Disease N Colon Cancer N Lung Disease N Glaucoma N Developmental or Behavioral Disorders N Bipolar N Pacemaker N Diverticulitis/Diverticulosis N Orthopedic Problems N Anesthesia Complications N Orthotics N Head Injury/Concussion N Congenital Anomalies N Gonzalez Bite N Chronic Kidney Disease N Endometriosis N Liver Disease N Schizophrenia N Dialysis N Speech Delay N Chronic Obstructive Pulmonary Disease N Parkinson's Disease N Thyroid Problems N GI Problems N Developmental Delay N Anemia N Multiple Sclerosis N Immune System Disorder N Colon Polyps N Heart Attack (MT) N Diabetes N Cardiomyopathy N Blood Transfusions N Heart Problems/Murmur N Eye Trauma N Congestive Heart Failure (CHF) N Valvular Heart Disease N Hyperlipidemia N Double Vision N Abuse/Domestic Violence N Hepatitis B N Lupus N Epilepsy/Seizures N Reflux/GERD N Aneurysm N Heart Disease N Bronchitis N Pre-Eclampsia N Hypertension N Heart Failure N Other N Gout N High Blood Pressure N Atrial Fibrillation N Kidney Stones N Head Trauma/Injury N Congenital Heart Disease N Spine Problems N Gastrointestinal Disease N Lung Mass N Sinusitis N Obstructive Sleep Apnea N Muscle, Joint, or Bone Problems N Autoimmune disease N Vision or Eye Problems N Arthritis N Blood Clot N Cancer N Seasonal allergies N Leg or Foot Ulcers N Raynaud's Disease N Aortic Aneurysm N Arrhythmia N Headaches N Heart Problems N [place]bl[place]pia N Ear or Hearing Problems N Hyperparathyroidism N Migraines N Artificial Joints N Kidney or Bladder Problems N NSAID Use N Encephalitis N PTSD N Ulcers N Prostate Hypertrophy N Bleeding Disorder N AIDS/HIV N Urinary Tract Infection N Back Problems N Allergies N Atrial Flutter N GERD/Reflux N Hepatitis N Autism Spectrum Disorder (ASD) N Breast Cancer N Hernia N Hypothyroidism N Breast Problem N Genitourinary Disease N Deep Vein Thrombosis N Varicose Veins N Cystic Fibrosis N Hearing Loss N Developmental Problems N Carotid Disease N Vitamin D Deficiency N ADHD N Bladder or Kidney Problems N High Cholesterol N [place] N Valvular Abnormalities N Psychiatric/Mental Health Condition N Organ Transplant N Foot Deformity N Allergies/Hayfever N Dyslipidemia N Hyponatremia N Diabetic Eye Disease N Osteoporosis/Osteopenia N Back Pain N Proteinuria N Mental Illness N Neurological Problems N Ovarian Cancer N Bedwetting N Seizures/Epilepsy N Kidney Failure N Ocular trauma N Diverticulitis N Dementia N Sleep Apnea N Mental Problems N Warfarin Management N Osteoporosis N Gynecological History Statement/Question Response Date of LMP 02/06/2022 STIs/STDs Y HPV Vaccine Y Age at Menarche 13 Current Control Method Implant Age at First Child 21 Sexually Active? Y Menses Monthly N Date of Last Pap Smear 12/03/2019 Sexual Problems? N LMP Approximate Desired Control Method None Obstetrics History GPAL:G 2 P 2 0 0 1 Type Value Multiple Births 0 Full Term 2 Induced 0 Spontaneous 0 Premature 0 Living 1 Ectopics 0 Total 2 Immunizations Vaccine Type Date Status Note Provider Nam e and Address Organization Details Recorded Time Influenza, split virus, trivalent, preservative 6 completed Not Available [facility] 11/15/2019 02:32:29 Influenza, split virus, quadrivalent, preservative 0 completed Not Available [facility] 11/15/2019 02:39:15 Tdap 0 completed Dana Francisco MA [facility], [place] - [facility] 04/15/2020 15:41:50 Tdap 7 completed Not Available [facility] 12/05/2022 07:53:40 Tdap 6 completed Not Available [facility] 12/05/2022 07:53:40 meningococcal ACWY, unspecified formulation 4 completed Not Available [facility] 12/05/2022 07:53:40 Hep A, unspecified formulation 4 completed Not Available [facility] 12/05/2022 07:53:40 Hep B, unspecified formulation 7 completed Not Available [facility] 12/05/2022 07:53:40 Hep B, unspecified formulation 7 completed Not Available [facility] 12/05/2022 07:53:40 Hep B, unspecified formulation 8 completed Not Available [facility] 12/05/2022 07:53:40 MMR 2 completed Not Available [facility] 12/05/2022 07:53:40 MMR 2 completed Not Available [facility] 12/05/2022 07:53:40 polio, unspecified formulation 7 completed Not Available [facility] 12/05/2022 07:53:40 polio, unspecified formulation 7 completed Not Available [facility] 12/05/2022 07:53:40 polio, unspecified formulation 2 completed Not Available [facility] 12/05/2022 07:53:40 Hib, unspecified formulation 7 completed Not Available [facility] 12/05/2022 07:53:40 Hib, unspecified formulation 7 completed Not Available [facility] 12/05/2022 07:53:40 Hib, unspecified formulation 8 completed Not Available [facility] 12/05/2022 07:53:40 Hib, unspecified formulation 2 completed Not Available [facility] 12/05/2022 07:53:40 DTaP, unspecified formulation 7 completed Not Available [facility] 12/05/2022 07:53:40 DTaP, unspecified formulation 7 completed Not Available [facility] 12/05/2022 07:53:40 DTaP, unspecified formulation 8 completed Not Available [facility] 12/05/2022 07:53:40 DTaP, unspecified formulation 2 completed Not Available [facility] 12/05/2022 07:53:40 varicella 7 completed Not Available [facility] 12/05/2022 07:53:40 varicella 4 completed Not Available [facility] 12/05/2022 07:53:40 influenza, unspecified formulation 4 completed Not Available [facility] 12/05/2022 07:53:40 influenza, unspecified formulation 6 completed Not Available [facility] 12/05/2022 07:53:40 influenza, unspecified formulation 6 completed Not Available [facility] 12/05/2022 07:53:40 Past Encounters Encounter ID Performer Location Encounter Start Date Encounter Closed Date Diagnosis/Indication Diagnosis SNOMED-CT Code Diagnosis ICD10 Code Diagnosis Note [id number] [facility] [address] [place] [address] [id number] 03/24/2015 15:16:22 03/24/2015 16:42:04 Knee pain 71745661 Obesity [id number] Reinaldo Vivas MD [facility] (Peds) [address] [place] [address] [id number] 0 03/30/2015 13:57:56 03/30/2015 16:33:15 Well child [id number] Obesity 456400996 Knee pain 10987594 [id number] MD Brie Rowe (Peds) [address] [place] [address] [id number] 0 04/27/2015 11:46:22 04/27/2015 14:08:59 Obesity 483767050 Disorder o f patellofemoral joint [id number] MD Brie Escamilla (Adult Med) [address] [place] [address] [id number] 0 06/15/2015 13:53:13 06/15/2015 15:28:19 Obesity 137689276 Discussed not drinking her calories. She is currently drink 4 glasses of cranberry juice/day and a large sweet tea Goal is to lose 5lbs by the next time I see her Depressive disorder 91033451 Patient is currently sleeping until noon, waking up to eat breakfast, going back to bed until dinnertime , waking up to eat, and then going back to bed. She states that she does not have any friends and hates being alone, but spends most of her time in her bedroom. She states that she does not want to see a counselor because she did not like the one that she talked to from [facility] when they filed charges against her mother's ex-boyfrie nd (she has a half sister that is his). She felt that they did nothing. I am going to encourage her to talk to one. We spend a long time talking about what is going on in her life. She lives with her aunt and cousins and feels like her father does not love here. 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 Her older brother is in the gang '[facility]' and she does not have a good relationsh ip with him anymore because he's into drugs. She states that at one point she was living with him and she was in [place] and [place] but since then has become very withdrawn. Her mother 2 years ago. Prior to her passing away, her mother had a boyfriend who shot and killed another person and then fled to [place] and left her children here to follow him. RTC in 4 weeks - if she does not want to follow with a counselor, i want to keep my eye on her. She states that she wants to get a job at a [employer] next to Mr. Cox. [id number] MD Brie Cox ([facility]) [address] [place] [address] [id number] 11/25/2015 14:43:09 11/26/2015 11:30:50 Subcutaneous contraceptive implant palpable 784100663 Z30.49 Nexplanon removed at patient request. [id number] MD Brie Rudolph (Adult Med) [address] [place] [address] [phone] 0 03/01/2016 14:01:05 03/01/2016 14:45:42 Missed period 10302401 N92.5 test positive 631672705 Z32.01 Discussed that she needs to get a job to start saving to take care of her child Will refer to OBGYN LMP: 01/20/16 EOC: 10/30/16 [id number] MD Brie Cox ([employer]) [address] [place] [address] [id number] 03/24/2016 11:35:48 03/24/2016 13:29:58 Routine care 770267474 Z34.91 Administra tion of influenza vaccine 24350839 Z23 [id number] MD Brie Alexander (Adult Med) [address] [place] [address] [phone] 0 09/04/2016 08:50:59 09/04/2016 09:47:45 Infestation by biting lice 562203232 B85.2 Advised to take all clothing and blankets to a laundromat for cleaing d/t high heat of the washers and dryers Advised to use a fine toothed comb daily to look for infestion f/u with your OBGYN - discussed that since she is all medication s need to come from [facility] [id number] NELLIE SALDAÑA (Adult Med) [address] [place] [address] [id number] 0 07/31/2019 08:19:35 08/03/2019 21:06:51 [id number] NELLIE SALDAÑA (Adult Med) [address] [place] [address] [id number] 0 08/05/2019 14:44:23 08/06/2019 08:52:30 Subcutaneous contraceptive implant palpable 973297456 Z30.46 Subcutaneo us implant palpated in the left upper arm sulcus between triceps and biceps Removal of subcutaneous contraceptive 169454790 Z30.46 Ready for nexplanon to be removed because it has been almost 3 years and is ready to try and conceive againNexpl anon removed today during visit, patient tolerated procedure well Trying to conceive 81073 9001 Z31.9 Nexplanon removed so she and her boyfriend can try and conceive- Started patient on vitamin- Provided her with hand-out regarding planning for Gastroesop hageal reflux disease without esophagitis 985194863 K21.9 She admits to sharp epigastric pain after eating meals that is improved with TUMS.- Will start on ranitidine twice a day, no interactio n with Dysuria 74758375 R30.9 Dysuria x 1 dayUrine dipstick normal during visit todayPatie nt performed the vaginal nuswab herself, will call her with results [id number] NELLIE SALDAÑA (Adult Med) [address] [place] [address] [id number] 0 11/10/2019 11:14:39 11/11/2019 12:20:47 Adult health examination 017616365 Z00.00 Presents today for a physical for [employer] [facility]. She needs influenza vaccine and 2-step TB test completed. On PE: vitals normal, no abnormalit ies on examVisual acuity: R eye corrected 20/15. L eye corrected 20/15.- Physical paperwork filled out, will return to patient after 2-step TB testing completed Active or passive immunization 834971112 Z23 Influenza vaccine completed today in the office Tuberculos is screening 963352225 Z11.1 1st PPD given today in the office, she is to return on 11/12/2019 after 11 am- Return to office 2 weeks later, 11/24/2019 for 2nd PPD Gastroesop hageal reflux disease without esophagitis 729715539 K21.9 Admits to continued sharp epigastric pain after eating meals, not improved with ranitidine - Will switch to trial of omeprazole Glaucoma 06613258 H40.9 Hx of glaucoma in the R eye.Follow s with ophthalmol ogy and takes latanopros t. Next appointmen t is 12/2019 [id number] NELLIE SALDAÑA (Adult Med) [address] [place] [address] [id number] 0 11/24/2019 11:36:37 11/25/2019 09:46:40 Tuberculosis screening 991635132 Z11.1 1st PPD given in the office on 11/10/2019, [id number] d PPD give in the office today, return in 2-3 days to have read test positive 668180698 Z32.01 Here today for testHad a positive test at an urgent care last weekLMP 10/12/19Pr egnancy test positive in the office today- Will get additional blood work- Will start on Ca + Vit. D supplement s, already taking pre- vitamins- Make NOB appointmen t upstairs [id number] NELLIE KING ([employer]) [address] [place] [address] [phone] 0 12/03/2019 13:51:17 12/03/2019 15:46:39 Routine care 538961303 Z34.91 Venereal d isease screening 575227310 Z11.3 screening 2437 29297 Z36.85 Abscess of vulva 0499243 1 N76.4 Will start empiric antibiotic . F/u culture. Wound care supplies provided to patient. Obesity 738314795 E66.9 [id number] NELLIE KING ([employer]) [address] [place] [address] [id number] 0 12/31/2019 14:43:44 01/05/2020 12:54:38 Routine care 469209143 Z34.91 Constipation 40337570 K5 9.00 Subchorionic hematoma 60 8473580 O41.8X99 F/u US. Continue ASA and progestero ne. Nausea and vomiting 1693 2000 R11.2 Start Zofran as prescribed . Dehydratio n precaution s discussed. Abnormal progesterone 13 6801726 R94.7 Continue progestero ne as prescribed . Herpes sim plex type 2 infection 532931548 B00.9 Discussed in detail. Pt already started suppressiv e antiviral. Continue as prescribed . Depressive disorder 3548 9007 F32.9 Tearful today when discussing HSV results. H/o depression , no longer follows with counselor. PHQ9 was 04/24 today. Recommend counseling . Reassess at next HAL. [id number] [facility] [address] [place] [address] [phone] 0 01/28/2020 14:56:33 02/03/2020 09:32:20 Routine care 462683789 Z34.91 Routine care. US 01/22 with resolution of subchorion ic hematoma. Will repeat US around 20 weeks for anatomy. Pt reporting continued nausea and constipati on. Taking medication s with minor relief. No signs of dehydratio n on exam, good UOP, BP wnl, trace ketones. Reassess at next visit. Constipation 40924632 K5 9.00 Eat meals regularly. Reduce fast food. Increase fiber and water in diet. Start fiber supplement . Continue stool softeners. Hyperemesi s gravidarum 52847070 O21.0 Continue Zofran as prescribed . Can add in Reglan for nausea. Small meals every 1-2 hours. Trigger avoidance. Dehydratio n precaution s discussed. Abnormal progesterone 13 9950067 R94.7 Continue progestero ne as prescribed . Recheck levels today. screening 2437 11718 Z36.85 Depressive disorder 3548 9007 F32.9 Mood mildly improved. Recommend counseling . Reassess at next HAL. [id number] [facility] ([facility]) [address] [place] [address] [phone] 0 02/26/2020 14:46:21 02/26/2020 15:44:29 Routine care 512899770 Z34.91 Routine care at 19w4d. Pt reporting some breakthrou gh nausea/vom iting and lightheade dness. 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 Advised keeping personal fan on hand and increasing water intake. Breaks as needed for dizziness/ lightheade dness. No signs of dehydratio n on exam, good UOP, BP wnl, trace ketones. Reassess at next visit. Order for 2nd trimester provided. AFP and progestero ne drawn today. RTC in 4 weeks. screening 2437 12424 Z36.1 Abnormal progesterone 13 6520484 R94.7 Continue progestero ne as prescribed . Recheck levels today. Obesity 793624729 E66.9 Recommende d weight gain <15 pounds. Exercise at least 150 minutes per week. Maintain healthy diet. Hyperemesi s gravidarum 57689305 O21.0 Continue Zofran and Reglan as prescribed . Small meals every 1-2 hours. Trigger avoidance. Dehydratio n precaution s discussed. Glycosuria 48885648 R81 HgbA1c at initial visit 5.6. Postprandi al BG wnl. Will perform GCT at 26-28 weeks. [id number] MD Brie [facility] ([facility]) [address] [place] [address] [phone] 0 03/15/2020 12:21:22 03/15/2020 13:15:54 Routine care 331204976 Z34.92 Syncope 878921690 R55 OFF WORK 03/15/20 Herpes sim plex type 2 infection 262390995 B00.9 Depressive disorder 8878 2687 F32.9 [id number] MD [facility] ([facility]) [address] [place] [address] [phone] 0 04/12/2020 09:54:54 04/13/2020 10:11:16 Routine care 222480604 Z34.92 screening 2437 77409 Z36.9 Herpes sim plex type 2 infection 626301689 B00.9 Syncope 046704274 R55 OFF WORK 03/15/20 Depressive disorder 3548 9049 F32.9 [id number] MD Brie Alford ([employer]) [address] [place] [address] [id number] 0 05/24/2020 16:01:16 05/25/2020 16:59:11 Routine care 416113297 Z34.83 Herpes sim plex type 2 infection 768938382 B00.9 Depressive disorder 3548 2110 F32.9 Gestationa l diabetes mellitus 33962811 O24.959 [id number] NELLIE KING ([employer]) [address] [place] [address] [phone] 0 06/07/2020 15:34:37 06/14/2020 09:28:58 Routine care 762401804 Z34.91 Routine care at 34w1d. c/b GDM, obesity, abnormal progestero ne, syncope, depressive disorder. No specific concerns today, denies contractio ns or LOF. + movement. Following with MFM for GDM. US earlier today with appropriat e growth (EFW 66%) and reassuring BPP 08/07. RTC in 2 weeks. Obesity 857815209 E66.9 Recommende d weight gain <15 pounds. Weight gain of 5 pounds thus far. Gestationa l diabetes mellitus 41366310 O24.414 Follows with MFM. Insulin controlled . Getting twice weekly testing. Growth assessment in 3-4 weeks. Continue management per MFM recs. Depressive disorder 8196 4541 F32.9 Mood improved. Recommend counseling . Reassess at next HAL. [id number] NELLIE KING ([employer]) [address] [place] [address] [phone] 0 06/22/2020 16:14:52 06/23/2020 13:10:06 Routine care 381896642 Z34.91 Routine care at 36w2d. c/b abnormal progestero ne, subchorion ic hematoma (resolved) , hyperemesi s, HSV2, gestationa l diabetes, depressive disorder, obesity. No specific concerns today, denies contractio ns or LOF. + movement. Fundal height appropriat e and FHT at 138 bpm. cervix 0/0%/-4. Following with [facility]FM ([facility]) for GDM. Last US 06/14 with appropriat e growth and reassuring BPP. Patient missed her appt with MFM yesterday due to car troubles. Advised to follow up as soon as possible and that pt will be full transfer of care to for delivery. [facility] contacted. GBS screening performed. Labs drawn. RTC in 1 week. screening 2437 52644 Z36.85 Venereal d isease screening 738467432 Z11.3 Gestationa l diabetes mellitus 45804692 O24.414 Follows with MFM. Insulin controlled . Getting twice weekly testing. Growth assessment in 2 weeks. Continue management per [facility] recs. Depressive disorder 3548 9007 F32.9 Mood improved. Reassess at next visit. Herpes sim plex type 2 infection 141623512 B00.9 Pt on suppressiv e antiviral. Continue as prescribed . Obesity 159390526 E66.9 [id number] [facility] ([facility]) [address] [place] [address] [id number] 0 06/29/2020 15:21:13 06/29/2020 16:53:33 Routine care 893262315 Z34.83 Gestationa l diabetes mellitus 45018260 O24.419 Herpes sim plex type 2 infection 449844014 B00.9 Depressive disorder 3548 9007 F32.9 [id number] MD Brie Alford ([employer]) [address] [place] [address] [phone] 0 07/06/2020 16:26:31 07/08/2020 11:19:36 Depressive disorder 78928731 F32.9 Gestationa l diabetes mellitus 48652026 O24.414 Herpes sim plex type 2 infection 907450755 B00.9 Hyperemesi s gravidarum 11511688 O21.0 Obesity 890204020 E66.9 Subchorionic hematoma 60 2740890 O41.8X99 resolved Routine an tenatal care 369055125 Z34.83 [facility] nning surveillance 076565876 Z30.09 [id number] MD Brie Alford ([employer]) [address] [place] [address] [phone] 0 08/23/2020 11:28:36 08/24/2020 09:13:24 care 363990828 Z39.2 [facility] nning surveillance 642509879 Z30.09 Implantati on of subcutaneous contraceptive 798468832 Z30.9 [id number] NELLIE SALDAÑA (Adult Med) [address] [place] [address] [id number] 0 11/17/2020 07:57:27 11/18/2020 09:10:22 Exposure to SARS-CoV-2 092486656 Z20.822 She has had exposure to someone who has tested positive for COVID, her cousin was staying with her over the past week, last exposure to her was on 11/15/2020. She started developing symptoms herself on 11/12/2020 including headaches, body aches, nasal congestion , clear rhinorrhea , sore throat, loss of smell, start of dry cough, SOB, and pleuritic chest pain. She has not tried anything at home to help her symptoms yet.- will send COVID test to [facility] due to symptoms and positive exposure- will send supportive care medication s to pharmacy- encouraged to get lots of rest and drink plenty of fluids- D/w pt the current pandemic of COVID-19 and call for social isolation in order to blunt the curve and minimize risk and spread. Encouraged patient and family to take restrictio ns seriously. They have verbalized understand ing of such. Urinary tr act infectious disease 35060476 N39.0 Also complainin g of dysuria, urinary frequency, and voiding small amounts over the past 2 days. Admits to drinking more soda than normal and believes she has an UTI currently. - will send abx to pharmacy to cover for UTI- if symptoms do not improve, call office [id number] NELLIE SALDAÑA (Adult Med) [address] [place] [address] [id number] 0 03/03/2021 12:19:21 03/05/2021 17:17:26 Fracture of ankle 61598749 S82.91XA Pt with fall 2 weeks ago [place], [place]- does not remember falling. Seen at [facility] ER in [place]. Was told she fractured something, given soft cast/splin t and crutches and told to be non-weight bearing for 1 week. Subsequent ly lost splint and crutches (used for 2 days). Has been weight bearing since then. Currently having ankle edema with pain (9/10) over anterior ankle and superior to lateral malleolus with weight bearing and movement. - stay off ankle, avoid weight bearing as much as possible - ordered new crutches and walking boot (she has small children at home w/ no help so she notes using crutches and non weight bearing is difficult) - apply ice for 15 min several times/ day, elevate leg when sitting - Start Ibuprofen 800mg and tramadol 50mg as directed - F/u with ortho- referral sent today [id number] NELLIE SALDAÑA (Adult Med) [address] [place] [address] [id number] 0 03/20/2022 09:41:45 03/21/2022 08:57:33 Depressive disorder 76483473 F32.9 Patient feels like she's lashing out at her kids more lately. She says she has thoughts about about hurting herself but won't actually do it because she's scared and has kids. Patient says her low mood has been going on for a few months, and has worsened in the last couple months due to some things from her past. Says now all she wants to do is sleep all day. She has not tried depression /anxiety medication s in the past and says she would like to speak with a therapist. - outpatient tx vs IOP, interested in IOP but unsure if she can leave work and care for her children, encouraged her to ask work- will help get scheduled for a counseling appointmen t- Agreeable to starting SSRI; discussed common AE including worsening depression /anxiety. Call if any prob w/ meds. Call or go to ER if she feels she is a danger to self or others.- started her with fluoxetine , patient aware to be patient because it takes 4-6 weeks for drug to reach full efficacy, and do not stop drug without contacting us first- f/u in 1 month Adult [facility] th examination 209255178 Z00.00 Patient has not had labs drawn for a few years, will get them updated. - ordered CMP, CBC, Vit D, lipid panel, UA Contraception care 98927 5330 Z30.40 Patient has been on nexplanon since age 16, most recent put in 06/2020. Patient feels like ever since she's been on it her weight has increased drasticall y and has mood swings. She plans to maybe have a kid ~5 years from now. Cycles are very inconsiste nt with both frequency and duration. She is unsure of her last cycle. - discussed with patient about other options for BC, may try to remove nexplanon in the near future and see how patient feels Morbid obesity 170587487 E66.01 BMI 41.2 today 03/20/22 - will check TSH and HgbA1C- provided patient with healthy lifestyle instructio ns Neck pain 81129845 M54.2 Left shoulder pain since August, no trauma or injury. Patient now experience s constant pain with movements. 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 Pain is felt in the back side of her shoulder/l eft trapezius muscle. Left side of her neck also gets tight and some times hurts to move. She has taken hydrocodon e (unsure if prescripti on is hers) for the pain which has helped. - on PE patient has normal movement of left shoulder and neck, little pain with palpation of left trapezius muscle- will prescribe diclofenac 1-2x daily, take with food, to help with pain- f/u in 2 weeks for further evaluation (not enough time for full work-up since most of visit was regarding her depression ) [id number] NELLIE SALDAÑA (Adult Med) [address] [place] [address] 04/03/2022 09:17:26 04/04/2022 11:42:53 Acute sinusitis 54290683 J01.90 Complainin g of dark green sputum production after coughing and sinus pressure x 2 weeks. She was started on albuterol inhaler and benzonatat e and she reports mild relief. She is still experienci ng productive cough of dark green thick mucus but now also feels sinus pressure and productive dark green mucus whenever she blows her nose. She says her son at home has also been experienci ng similar symptoms - will start amoxicilli n 875mg q8 for 7 days and dextrometh orphan-gua ifenesin as needed- c/w supportive care medication s Depressive disorder 3548 9007 F32.9 Today patient reports Improvemen t in energy, mild improvemen t in negative thoughts thus far, still having difficult days. Says she feels like she is a little more quick tempered since starting fluoxetine 2 weeks ago. Also noted some hair loss since starting medication , wondering if SE? Last visit 2 weeks ago: patient felt like she's lashing out at her kids more lately. She says she has thoughts about about hurting herself but won't actually do it because she's scared and has kids. Patient says her low mood has been going on for a few months, and has worsened in the last couple months due to some things from her past. Says now all she wants to do is sleep all day. She has not tried depression /anxiety medication s in the past and says she would like to speak with a therapist. - continue with fluoxetine 20mg and will follow-up with patient in 1 week at next visit, if mild improvemen t at that time - plan to increase- discuss with patient at next visit, no known SE of hair loss with fluoxetine [id number] NELLIE SALDAÑA (Adult Med) [address] [place] [phone] 07/07/2022 11:55:47 07/11/2022 08:44:43 Depressive disorder 11900373 F32.9 Was started on fluoxetine 20 mg 3 months ago for depressed mood, irritabili ty, and sadness. The medication helped when she first started taking it, felt energized, motivated, less irritable and generally more positive while taking. After about 1 month of taking, she stopped taking it abruptly after a few traumatic things happened in her life and since her mood and depression has been worse again. She is terrified she is going to lose her kids and maybe even her trailer home, started picking up a second job to help make more money but has very low motivation right now which is making it hard for her to keep her jobs. She wants to restart her medication .She missed her counseling appointmen t and is requesting to get reschedule d with them.She denies active plan for suicide, homicidal ideations, palpitatio ns, SOB. - restart fluoxetine 20mg and will have close follow-up with patient in 2 weeks due to passive suicide thoughts, if mild improvemen t at that time will increase to 40 mg- Agreeable to starting SSRI; discussed common AE including worsening depression /anxiety. Call if any prob w/ meds. Call or go to ER if she feels she is a danger to self or others.- discuss with patient at next visit, no known SE of hair loss with fluoxetine Strain of left trapezius muscle [id number] S29.012A Left shoulder pain since August, no trauma or injury. Patient now experience s constant pain with movements. 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 Pain is felt in the back side of her shoulder/l eft trapezius muscle. Left side of her neck also gets tight and some times hurts to move. She has taken hydrocodon e (unsure if prescripti on is hers) for the pain which has helped. IBU and tylenol take away her pain only temporaril y.- normal ROM of left shoulder on exam, left trapezius muscle with large tight knot palpated on exam- discussed supportive care including heat, topical medication s such as IcyHot and Biofreeze, massage, muscle relaxer at night, stretching to help Contraception care [id number] Z30.40 Patient has been on nexplanon since age 16, most recent put in 06/2020. Patient feels like ever since she's been on it her weight has increased drasticall y and has mood swings. She plans to maybe have a kid ~5 years from now. Cycles are very inconsiste nt with both frequency and duration. She is unsure of her last cycle. - discussed with patient about other options for BC, may try to remove nexplanon in the near future and see how patient feels. Schedule f/u visit for removal Morbid obesity [id number] E66.01 BMI 41.2 today 03/20/22Adv ised decreased portion sizes, good food choices, limited eating out or fast food and eliminate soda and juice from diet. Advised physical activity daily and offered encouragem ent to continue with positive changes made so far. [id number] NELLIE SALDAÑA (Adult Med) [address] [place] [address] 07/21/2022 09:55:59 07/25/2022 09:57:00 Depressive disorder [id number] F32.9 Started back on fluoxetine last week since our last visit, states she has seen an improvemen t in her energy and motivation so far. She is waking up earlier and even went on a walk the other day which she does not usually do. She was on the fluoxetine 20 for 1-2 months before stopping in the past and remembers it helping only moderately so hoping to increase the dose today for better improvemen t. She denies active plan for suicide, homicidal ideations, palpitatio ns, SOB.- c/w medication , will increase to 40 mg daily Morbid obesity [id number] E66.01 BMI 41.2 today 03/20/22Adv ised decreased portion sizes, good food choices, limited eating out or fast food and eliminate soda and juice from diet. Advised physical activity daily and offered encouragem ent to continue with positive changes made so far. Removal of subcutaneous contraceptive [id number] Z30.46 Here today for removal of nexplanonB een on nexplanon since age 16, most recent put in 06/2020. Patient feels like ever since she's been on it her weight has increased drasticall y and has mood swings. She plans to maybe have a kid ~5 years from now. Cycles are very inconsiste nt with both frequency and duration. She is unsure of her last cycle.- nexplanon removed in the office today, patient tolerated procedure well, keep coban on x 1 day and then steri-stri ps x 2 days- fertility will return immediatel y so stressed the importance of using protection to avoid if sexually active Low back pain [id number] M54.50 At last visit, was complainin g of left shoulder pain. Today she states the shoulder pain has actually improved but now her lower back is very painful. Started right after our last appointmen t. States it hurts to move, bend over, etc. Denies known injury or trauma. Taking ibuprofen and tylenol at home which does not help. Denies numbness/t ingling down the legs.- will order xray due lumbar spine point tenderness on exam today Health Concerns Section Related Observation LastModified by Organization Detai ls LastModified Time None Recorded Concern Status LastModified by Organization Details LastModified Time None Recorded Advance Directives Directive N: Payers Encounter Date Sequence Insurance Name Policy Number Policy Prather Covered Member ID Prather Member ID Guarantor Name 03/03/2021 1 [facility] PRIOR TO 04/28/2021 (MEDICAID REPLACEMENT - HMO) Angelita Camila [id number] Angelita Camila 03/20/2022 1 [facility] ON OR AFTER 04/28/21 (MEDICAID REPLACEMENT - HMO) Angelita Camila [id number] Angelita Camila 04/03/2022 1 [facility] ON OR AFTER 04/28/21 (MEDICAID REPLACEMENT - HMO) Angelita Camila [id number] Angelita Camila 07/07/2022 1 [facility] ON OR AFTER 04/28/21 (MEDICAID REPLACEMENT - HMO) Angelita Camila [id number] Angelita Camila 07/21/2022 1 [facility] ON OR AFTER 04/28/21 (MEDICAID REPLACEMENT - HMO) Angelita Camila [id number] Angelita Camila Notes Date Note Type Note Provider Name and Address Organization Details Recorded Time 03/03/2021 text/html Pt is a 25 y/o female who presents today for right ankle pain s/p fall 2 weeks ago. She was at the [facility] when she fell down stairs. States she was drunk and does not remember falling or how she fell. Went to [facility] in [place] to ER the next told. Was told she fractured something, given soft cast/ splint and crutches and told to be non-weight bearing for 1 week. She lost the crutches and splint after 2 days. Pt reports her ankle has been very swollen with pain (9/10) over anterior ankle and superior to lateral malleolus with weight bearing and movement. She tried Ibuprofen 2 tabs several times/ day without improvement so she stopped. Tylenol 3 (from boyfriend) did improve pain but she does not want to take opioids.Has been icing and elevating her leg. Denies fever, chills. NELLIE SALDAÑA Attn: Accounting[address] , [place], [address], [facility] 03/03/2021 13:41:02 03/20/2022 text/html Angelita is a 26y /o female presenting to clinic today for low mood x 5-6 months and contraception discussion. Patient feels like she's lashing out at her kids more lately. She says she has thoughts about about hurting herself but won't actually do it because she's scared and has kids. Patient says her low mood has been going on for a few months, and has worsened in the last couple months due to some things from her past. Says now all she wants to do is sleep all day. She has not tried depression/anxiety medications in the past and says she would like to speak with a therapist. She denies active plan for suicide, homicidal Ideations, palpitations, SOB. Contraception: been on nexplanon since age 16, most recent put in 06/2020. Patient feels like ever since she's been on it her weight has increased drastically and has mood swings. She plans to maybe have a kid ~5 years from now. Cycles are very inconsistent with both frequency and duration. She is unsure of her last cycle. Shoulder pain/neck: left shoulder pain since August, no trauma or injury. Patient now experiences constant pain with movements. 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 Pain is felt in the back side of her shoulder/left trapezius muscle. Left side of her neck also gets tight and some times hurts to move. She has taken hydrocodone (unsure if prescription is hers) for the pain which has helped. NELLIE SALDAÑA Attn: Accounting[address] , [place], [address], [facility] 03/20/2022 22:49:44 04/03/2022 text/html Angelita is a 26y /o female with a PMHX of depression, HSV presents to clinic today for productive cough x2 weeks. Patient says she called to the office here 2 weeks ago for dark green sputum production after coughing and sinus pressure. She was started on albuterol inhaler and benzonatate and she reports mild relief. She is still experiencing productive cough of dark green thick mucus but now also feels sinus pressure and dark green mucus whenever she blows her nose. She says her son at home has also been experiencing similar symptoms. Patient says since starting fluoxetine 20mg 2 weeks ago she feels like she has been more quick tempered than before but has seen improvement in her energy levels and having less negative thoughts. She denies fever, chest pain, SOB, ear pain, sore throat. NELLIE SALDAÑA Attn: Accounting[address] [place], [address], [place] [facility] 04/03/2022 16:16:17 07/07/2022 text/html Angelita is a 26y /o female presenting to clinic today for depression f/u. Was started on fluoxetine 20 mg 3 months ago for depressed mood, irritability, and sadness. The medication helped when she first started taking it, felt energized, motivated, less irritable and generally more positive while taking. After about 1 month of taking, she stopped taking it abruptly after a few traumatic things happened in her life and since her mood and depression has been worse again. She is terrified she is going to lose her kids and maybe even her trailer home, started picking up a second job to help make more money but has very low motivation right now which is making it hard for her to keep her jobs. She wants to restart her medication. She missed her counseling appointment and is requesting to get rescheduled with them. She denies active plan for suicide, homicidal Ideations, palpitations, SOB. Contraception: been on nexplanon since age 16, most recent put in 06/2020. Patient feels like ever since she's been on it her weight has increased drastically and has mood swings. She plans to maybe have a kid ~5 years from now. Cycles are very inconsistent with both frequency and duration. She is unsure of her last cycle. Is requesting to have this removed at her next visit. Shoulder pain/neck: left shoulder pain since August, no trauma or injury. Patient now experiences constant pain with movements. 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 Pain is felt in the back side of her shoulder/left trapezius muscle. Left side of her neck also gets tight and some times hurts to move. She has taken hydrocodone (unsure if prescription is hers) for the pain which has helped. IBU and tylenol take away her pain only temporarily. NELLIE SALDAÑA Attn: Accounting[address] , [place], [address], [facility] 07/07/2022 14:20:58 07/21/2022 text/html Angelita is a 27 y/o female presenting to clinic today for nexplanon removal. Contraception: been on nexplanon since age 16, most recent put in 06/2020. Patient feels like ever since she's been on it her weight has increased drastically and has mood swings. She plans to maybe have a kid ~5 years from now. Cycles are very inconsistent with both frequency and duration. She is unsure of her last cycle. Is requesting to have this removed today. Started back on fluoxetine last week since our last visit, states she has seen an improvement in her energy and motivation so far. She is waking up earlier and even went on a walk the other day which she does not usually do. She was on the fluoxetine 20 for 1-2 months before stopping in the past and remembers it helping only moderately so hoping to increase the dose today for better improvement. She denies active plan for suicide, homicidal ideations, palpitations, SOB. At last visit, was complaining of left shoulder pain. Today she states the shoulder pain has actually improved but now her lower back is very painful. Started right after our last appointment. States it hurts to move, bend over, etc. Denies known injury or trauma. Taking ibuprofen and tylenol at home which does not help. Denies numbness/tingling down the legs. Denies fever, chills, nausea, vomiting, headaches, chest pain, SOB, abdominal pain, diarrhea, constipation, or dysuria. NELLIE SALDAÑA Attn: Accounting[address] , [place], [address], [facility] 07/21/2022 13:24:20 OBGyn Episode Ob Episode Information Episode Created Date Number of Fetuses Patient Bloodtype Patient rh Status Prepregnancy Weight lbs Domestic Partner Domestic Partner Phone Father Name Power Switchboard Operator Status 12/03/19 20 1 O Positive 240 CLOSED Fetus Data First Name Last Name Admitted to NICU Weight (g) Sex Living Outcome Pediatric Complications Fetus ID Race Codes Race Delivery Type Kranthi Daugherty false 3458.63 9 M Full Term 81513 2106-3 White Vaginal Problems Problem Notes yes to epidural, unsure abou t circumcision, combo feeding, 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 [facility], PPBC undecided - baby boy, name undecided Problem Name Start Date End Date Resolution Snomed Code Not e Gestational diabetes mellitus 05/24/2020 09532834 Glucose tolerance test outside reference range 04/14/2020 480312979 Subchorionic hematoma 12/31/2019 4636878 04 resolved Abnormal progesterone 12/12/2019 8291537 00 Obesity 004826869 Bacterial vaginosis in 12/10/2019 [id number] Herpes simplex type 2 infection 12/12/2019 150678146 Depressive disorder [id number] Hyperemesis gravidarum 02/26/2020 308850 01 Tom Calculation Initial Tom Date Initial Exam Date Initial Exam Provider Initial Ultrasound Date Last Menstrual Period Date Ultra Sound Weeks Gestation 07/18/2020 12/03/2019 [email or web address] 12/26/2019 10/12/2019 10 Eighteen To Twenty Week Tom Update Ultra Sound Date Fundal Height At Umbil Quickening Date Ultra Sound Latest Weeks Gestation Final Tom Confirmed By Final Tom Confirmed Date Final Tom Date Ultra Sound Latest Days Gestation 12/26/19 20 10 [email or web address] 12/26/2019 07/18/20 20 5 Pre-patrick Flowsheet Flowsheet Date 12/03/2019 Whitaker Score Blood Edema Fundus Height Fundus Units Glucose Ketones Leukocytes Nitrite Labor Signs Protein Cervic Dilation Cervic Effacement Cervic Station neg none 7 wks none negative neg Type Weight in lbs Pre/Post Dialysis Refused Weight 243.193920711211 BP Diastolic BP Location Tested BP Systolic BP Type 62 112 sitting Fetus Heart Rate Present Fetus Movement Comments NOB labs today. OB education al packet reviewed and provided to patient. Order for first trimester US given. Flowsheet Date 12/31/2019 Whitaker Score Blood Edema Fundus Height Fundus Units Glucose Ketones Leukocytes Nitrite Labor Signs Protein Cervic Dilation Cervic Effacement Cervic Station neg none 11 wks none negative neg Type Weight in lbs Pre/Post Dialysis Refused Weight 241.702371964201 BP Diastolic BP Location Tested BP Systolic BP Type 62 106 sitting Fetus Heart Rate Present Fetus Movement Comments Small subchorionic hematoma on initial US. Repeat US in 2 weeks. Discussed light duty, pelvic rest. Flowsheet Date 01/28/2020 Whitaker Score Blood Edema Fundus Height Fundus Units Glucose Ketones Leukocytes Nitrite Labor Signs Protein Cervic Dilation Cervic Effacement Cervic Station neg none 15 wks none trace none trace Type Weight in lbs Pre/Post Dialysis Refused Weight 238.53180508449 BP Diastolic BP Location Tested BP Systolic BP Type 62 110 sitting Fetus Heart Rate Present A 137 Present Fetus Movement Comments Routine care. US with resolution of subchorionic hematoma. Will repeat US around 20 weeks for anatomy. Pt reporting continued nausea and constipation. Taking medications with minor relief. Advised pt maintain healthy diet and eat small meals every 1-2 hours. Increase fiber and water intake. Add in Reglan. No signs of dehydration on exam, good UOP, BP wnl, trace ketones. Reassess at next visit. Flowsheet Date 02/26/2020 Whitaker Score Blood Edema Fundus Height Fundus Units Glucose Ketones Leukocytes Nitrite Labor Signs Protein Cervic Dilation Cervic Effacement Cervic Station neg none 19 wks 1+ trace none trace Type Weight in lbs Pre/Post Dialysis Refused Weight 237.373221336404 BP Diastolic BP Location Tested BP Systolic BP Type 64 102 sitting Fetus Heart Rate Present A 141 Present Fetus Movement Comments Routine care at 19w 4d. Nausea and vomiting improved. Glucose on UA - BG 148 postprandial in office. Will perform GCT around 26-28 weeks. AFP and progesterone drawn today. Order for 2nd trimester US provided. Flowsheet Date 03/15/2020 Whitaker Score Blood Edema Fundus Height Fundus Units Glucose Ketones Leukocytes Nitrite Labor Signs Protein Cervic Dilation Cervic Effacement Cervic Station neg none 22 wks none negative Other (see comments ) neg Type Weight in lbs Pre/Post Dialysis Refused With clothes 238.494719529683 BP Diastolic BP Location Tested BP Systolic BP Type 60 100 sitting Fetus Heart Rate Present A 142 Present Fetus Movement A Yes Comments SYCOPE WITH FALL OFF WORK CA RDIOLOGY EVALUS TODAY; OB F/U Flowsheet Date 04/12/2020 Whitaker Score Blood Edema Fundus Height Fundus Units Glucose Ketones Leukocytes Nitrite Labor Signs Protein Cervic Dilation Cervic Effacement Cervic Station neg none 24 cm none negative none neg Type Weight in lbs Pre/Post Dialysis Refused With clothes 243.073165759485 BP Diastolic BP Location Tested BP Systolic BP Type 62 112 sitting Fetus Heart Rate Present A 143 Present Fetus Movement A Yes Comments gtt/tdap/us Flowsheet Date 05/24/2020 Whitaker Score Blood Edema Fundus Height Fundus Units Glucose Ketones Leukocytes Nitrite Labor Signs Protein Cervic Dilation Cervic Effacement Cervic Station Type Weight in lbs Pre/Post Dialysis Refused With clothes 245.237422084590 BP Diastolic BP Location Tested BP Systolic BP Type 62 110 sitting Fetus Heart Rate Present Fetus Movement Comments Flowsheet Date 06/07/2020 Whitaker Score Blood Edema Fundus Height Fundus Units Glucose Ketones Leukocytes Nitrite Labor Signs Protein Cervic Dilation Cervic Effacement Cervic Station neg none 34 cm none trace none trace Type Weight in lbs Pre/Post Dialysis Refused Weight 245.391384997024 BP Diastolic BP Location Tested BP Systolic BP Type 62 100 sitting Fetus Heart Rate Present A 151 Present Fetus Movement A Yes Comments Routine care at 34w 1d. No specific concerns today, denies contractions or LOF. Following with MFM for GDM. US earlier today with appropriate growth (EFW 66%) and reassuring BPP 08/07. Flowsheet Date 06/22/2020 Whitaker Score Blood Edema Fundus Height Fundus Units Glucose Ketones Leukocytes Nitrite Labor Signs Protein Cervic Dilation Cervic Effacement Cervic Station neg none 36 cm none negative none neg 0cm 0% - 4 Type Weight in lbs Pre/Post Dialysis Refused Weight 248.472631470647 BP Diastolic BP Location Tested BP Systolic BP Type 56 100 sitting Fetus Heart Rate Present A 138 Present Fetus Movement A Yes Comments Routine care at 36w 2d. No specific concerns today, denies contractions or LOF. + movement. Last US 06/14 with appropriate growth and reassuring BPP. Patient missed her appt with MFM yesterday due to car troubles. Advised to follow up as soon as possible and that pt will be full transfer of care for delivery. [facility] contacted. GBS screening performed. Labs drawn. RTC in 1 week. Flowsheet Date 06/29/2020 Whitaker Score Blood Edema Fundus Height Fundus Units Glucose Ketones Leukocytes Nitrite Labor Signs Protein Cervic Dilation Cervic Effacement Cervic Station neg none 37 cm none negative none neg 1cm 50% - 3 Type Weight in lbs Pre/Post Dialysis Refused Weight 246.125058842415 BP Diastolic BP Location Tested BP Systolic BP Type 60 116 sitting Fetus Heart Rate Present A 144 Present Fetus Movement A Yes Comments wtc/wlb del at [facility] mfm due t o insulin Flowsheet Date 07/06/2020 Whitaker Score Blood Edema Fundus Height Fundus Units Glucose Ketones Leukocytes Nitrite Labor Signs Protein Cervic Dilation Cervic Effacement Cervic Station neg trace 37 cm none negative Pressure neg 0cm 0 % 0 Type Weight in lbs Pre/Post Dialysis Refused Weight 249.281320493198 BP Diastolic BP Location Tested BP Systolic BP Type 68 108 sitting Fetus Heart Rate Present A 145 Present Fetus Movement A Yes Comments Following with MFM. Will del iver at [facility]. RTC next week. Flowsheet Date 08/23/2020 Whitaker Score Blood Edema Fundus Height Fundus Units Glucose Ketones Leukocytes Nitrite Labor Signs Protein Cervic Dilation Cervic Effacement Cervic Station Type Weight in lbs Pre/Post Dialysis Refused With clothes 231.350393712086 BP Diastolic BP Location Tested BP Systolic BP Type 70 110 sitting Fetus Heart Rate Present Fetus Movement Comments Menstrual History Last Menstrual Date Menses Monthly On Bcp Conception Prior Menses Frequency Hcg Plus Date Menarche Onset Age 1210/12/2019 true false 28 11 Genetic Screening And Infection History Question Response Note Patient's Age Will Be 35 Yea rs Or Older At Estimated Date of Delivery false Thalassemia (Danish, Nigerien, Mediterranean, Or Background): MCV < 80 false Neural Tube Defect (Meningom yelocele, Spina Bifida, Or Anencephaly) false Congenital Heart Defect false Down Syndrome false Henrique-Sachs (eg, Islam, Cajun, Omani-Blackford) f alse Dwaine Disease false Sickle Cell Disease Or Trait () false Hemophilia Or Other Blood Disorders false Muscular Dystrophy false Cystic Fibrosis false Gravette's Chorea false Mental Retardation/Autism false If Yes, Was Person Tested For Fragile X? false Other Inherited Genetic Or Chromosomal Disorder false Maternal Metabolic Disorder (eg, Type 1 Diabetes , PKU) false Patient Or Baby's Father Had A Child With Defects Not Listed Above false Recurrent Loss, Or A Stillbirth false Medications (including Suppl ements, Vitamins, Herbs, OTC Drugs), Illicit/Recreational Drugs, Alcohol true acyclovir If Yes, Agent(s) And Strength/Dosage false Any Other Genetic History false Live With Someone With TB Or Exposed To TB false Patient Or Partner Has History Of Genital Herpes true HSV2 Rash Or Viral Illness Since Last Menstrual Perio d false History Of STD, Gonorrhea, Chlamydia, HPV, Syphi lis false Other Infection History false History of HIV false History of Hepatitis false Prior GBS-infected child false Plans and Education First Trimester Discussed Date Discussion Item Discussion Note Discuss ed By 12/03/2019 Anticipated course o f care [email or web address] 12/03/2019 Alcohol [email or web address] 12/03/2019 Intimate partner violence gala or[place] 12/03/2019 Environmental/[place] [address] 12/03/2019 [facility] Nutrition counseling ; special diet; dietary precautions (mercury, listeriosis) [place] [address] 12/03/2019 Childbirth classes/h [place]spital facilities [place] [address] 12/03/2019 HIV and other routin e tests [place] [address] 12/03/2019 Risk factors identif ied by history [email or web address] 12/03/2019 [facility] 12/03/2019 Exercise [place] [address] 12/03/2019 Teratogens [place] [address] 12/03/2019 Use of any medicatio ns (including supplements, vitamins, herbs, or OTC drugs) [place] [address] 12/03/2019 03/15/2020 breas t and bottle feed, cb-rma [place] [address] 12/03/2019 Sexual activity [place] [address] 12/03/2019 Tobacco/smoking cess ation counseling (ask, advise, assess, assist, and arrange) [facility] 12/[facility]2019 [facility]creational drugs [facility] 12/03/2019 Dental care [place] [address] 12/03/2019 Travel [place] [address] 12/03/2019 Seat belt use [place] [address] 12/03/2019 Indications for ultrasonography [place] [address] 12/03/2019 Avoidance of saunas or hot tubs [place] [address] 12/03/2019 Toxoplasmosis precau tions (cats/raw meat) [email or web address] Second Trimester Discussed Date Discussion Item Discussion Note Discuss ed By 02/26/2020 Selecting a care provider 03/15/[address] Griselda Rowe MD, cb-rma [email or web address] 02/26/2020 family planning/tubal sterilization 03/15/2020 ppbc nexplanon, cb-rma [email or web address] 02/26/2020 Depression screening (when indicated) [email or web address] 02/26/2020 Abnormal lab values [email or web address] 02/26/2020 Signs and symptoms o f labor [email or web address] 02/26/2020 Intimate partner violence gala [email or web address] 02/26/2020 Tobacco/smoking cess ation counseling (ask, advise, assess, assist, and arrange) [email or web address] Third Trimester Discussed Date Discussion Item Discussion Note Discuss ed By 06/22/2020 Intimate partner violence denies gala [email or web address] 03/15/2020 Anesthesia plans 03/15/2020 yes to Epidural, cb-rma cbradshawma 06/22/2020 [place] education (n ewborn screening, jaundice, SIDS/safe sleeping position, car seat) discussed [email or web address] 03/15/2020 Circumcision 03/15/2020 baby boy, pt to wait until to decide on Circ, cb-rma cbradshawma 06/22/2020 Postterm counseling [email or web address] 06/22/2020 movement monitoring gala [email or web address] 03/15/2020 03/15/2020 breas t and bottle, cb-rma cbradshawma 06/22/2020 Labor signs [email or web address] 06/22/2020 depression [email or web address] [email or web address] 06/22/2020 Family medical leave or disability forms [email or web address] 06/22/2020 Tobacco/smoking cess ation counseling (ask, advise, assess, assist, and arrange) [email or web address] 06/22/2020 Signs and symptoms o f preeclampsia [email or web address] Delivery Information Delivery Date Delivery Type Labor Anesthesia Weeks Gestation Incision Type Labor Labor Length Hrs Delivered By Post Complications Tubal Sterilization Discharge Date Comments 0 Induce d [facility]-Ep idural 39.1 false 8 afehrenbac her None false 07/15/2020 Discharge Information Feeding Method Contraceptive Method Maternal HG B and HCT Levels Bottle Nexplanon Ob Episode Information Episode Created Date Number of Fetuses Patient Bloodtype Patient rh Status Prepregnancy Weight lbs Domestic Partner Domestic Partner Phone Father Name Power Switchboard Operator Status 03/24/20 16 1 O Positive 216 CLOSED Fetus Data First Name Last Name Admitted to NICU Weight (g) Sex Living Outcome Pediatric Complications Fetus ID Race Codes Race Delivery Type [id number] Tom Calculation Initial Tom Date Initial Exam Date Initial Exam Provider Initial Ultrasound Date Last Menstrual Period Date Ultra Sound Weeks Gestation 10/30/2016 03/24/2016 [email or web address] 01/24/2016 0 Eighteen To Twenty Week Tom Update Ultra Sound Date Fundal Height At Umbil Quickening Date Ultra Sound Latest Weeks Gestation Final Tom Confirmed By Final Tom Confirmed Date Final Tom Date Ultra Sound Latest Days Gestation 0 10/30/19 17 0 Pre-patrick Flowsheet Flowsheet Date 03/24/2016 Whitaker Score Blood Edema Fundus Height Fundus Units Glucose Ketones Leukocytes Nitrite Labor Signs Protein Cervic Dilation Cervic Effacement Cervic Station trace none 6 wks none negative 1+ 0cm 0% -4 Type Weight in lbs Pre/Post Dialysis Refused [id number] BP Diastolic BP Location Tested BP Systolic BP Type 60 92 sitting Fetus Heart Rate Present A Absent Fetus Movement A No Comments Flowsheet Date 09/04/2016 Whitaker Score Blood Edema Fundus Height Fundus Units Glucose Ketones Leukocytes Nitrite Labor Signs Protein Cervic Dilation Cervic Effacement Cervic Station Type Weight in lbs Pre/Post Dialysis Refused 225.971339667756 BP Diastolic BP Location Tested BP Systolic BP Type 50 100 sitting Fetus Heart Rate Present Fetus Movement Comments Menstrual History Last Menstrual Date Menses Monthly On Bcp Conception Prior Menses Frequency Hcg Plus Date Menarche Onset Age 0301/24/2016 false 10 Delivery Information Delivery Date Delivery Type Labor Anesthesia Weeks Gestation Incision Type Labor Labor Length Hrs Delivered By Post Complications Tubal Sterilization Discharge Date Comments 7 48.4 miscarried Discharge Information Feeding Method Contraceptive Method Maternal HG B and HCT Levels
[2025-03-02 11:39] LABS: Basophils Percent Auto 0.5 % (0.2-1.2); Eosinophils Absolute Auto 0.1 K/mm3 (0-0.3); Eosinophils Percent Auto 1.4 % (0-4.4); Hematocrit 39.2 % (37.0-47.0); Hemoglobin 12.5 g/dL (12.0-15.0); Immature Granulocyte Absolute 0.06 K/mm3 (0.00-0.031); Immature Granulocyte Percent A 0.8 % (0-0.5); Lymphocytes Absolute Auto 3.02 K/mm3 (0.9-3.2); Mean Corpuscular HGB Conc 31.9 g/dl (32-36); Mean Corpuscular Hemoglobin 30.1 pg (26-34); Mean Corpuscular Volume 94.5 fl (80-100); Mean Platelet Volume 10.4 fl (7.4-10.4); Monocytes Absolute Auto 0.5 K/mm3 (0.1-0.6); Monocytes Percent Auto 6.7 % (2.6-8.5); Neutrophils Absolute Auto 4.2 K/mm3 (1.3-6.7); Neutrophils Percent Auto 52.6 % (45.5-73.1); Platelet Count Result 352 k/mm3 (150-375); Red Blood Count 4.15 M/mm3 (4.2-5.4); White Blood Count 7.9 K/mm3 (4.5-10.0)
[2025-03-02 11:51] LABS: INR 0.9; Partial Thromboplastin Time 28.5 Seconds (22.3-36.8); Prothrombin Time 12.8 Seconds (11.1-14.7)
[2025-03-02 11:56] LABS: Alanine Aminotransferase 28 U/L (6-35); Albumin Level 3.9 g/dL (3.5-5.1); Alkaline Phosphatase 100 U/L (38-126); Anion Gap 5 mmol/L (4-12); Aspartate Amino Transferase 25 U/L (14-36); Bilirubin,Total 0.3 mg/dL (0.2-1.3); Blood Urea Nitrogen 12 mg/dL (7-17); Calcium 8.5 mg/dL (8.4-10.2); Carbon Dioxide 28 mmol/L (22-30); Chloride 104 mmol/L (98-107); Estimated CRCL calculation 157 ml/min; Estimated Glomerular Filt Rate > 60; Glucose 118 mg/dL (65-110); Potassium 3.6 mmol/L (3.4-5.0); Sodium 137 mmol/L (137-145)
[2025-03-02 12:07] LABS: Troponin I < 0.012 ng/mL (0.000-0.034)
[2025-03-02] MEDS: SODIUM CHLORIDE 0.9% IV 1,000 ML 999 ML IV CONT (12:40)
[2025-03-02] MEDS: METOCLOPRAMIDE HCL INJ 10 MG/2 ML VIAL IV PUSH (12:41)
[2025-03-02] MEDS: diphenhydrAMINE HCl INJ 50 MG/ML VIAL 25 MG IV PUSH (12:41)
[2025-03-02] MEDS: ARTIFICIAL TEARS OPHTH SOLN 15 ML BOTTLE 1 DROP RIGHT EYE (12:41)
[2025-03-02] MEDS: KETOROLAC 30 MG/ML VIAL (*BKC) IV PUSH (12:41)
--- OUTSIDE RECORDS SUMMARY | 2025-03-02 12:52 | XMS_ITS | Data Portability ---
Author Organization [facility] Address [address] [place] [address] Assessment No assessment recorded. Plan of Treatment Reminders Order Date Submit Date Provider Last Modified By Organization Details Last Modified Time Details Appointments None record ed. Lab None record ed. Referral None record ed. Procedures None record ed. Surgeries None record ed. Imaging None record ed. Medication Orders None record ed. Patient TargetsNo targets recorded. Patient InstructionsNo instructions recorded. Reason for Referral None Reported. Problems Name Problem SNOMED Code Status Onset Date Resolution Date Notes Provider Name and Address Organization Details Recorded Time Gestation period, 27 weeks 39914640 Active 2015 27 weeks gestation of ; Practice ID: 0001 Not Available [facility] 0 22:01:06 , childbirt h and [place] m finding Active 2015 Encntr for suprvsn of normal first preg, third trimester; Practice ID: 0001 Not Available [facility] 0 22:01:06 Term delivered 27651211 Active 2016 Encounter for full-term uncomplica swati delivery;Orly holley ID: 0001 Not Available [facility] 0 22:01:07 Single live from tavares 577159503 Active 2016 Single live ;Ephraim yan ID: 0001 Not Available [facility] 0 22:01:07 Gestation period, 40 weeks 47646414 Active 2016 40 weeks gestation of ; Practice ID: 0001 Not Available [facility] 0 22:01:07 Lochia finding Active 2016 Encounter for routine follow-up; Practice ID: 0001 Not Available [facility] 0 22:01:07 Procedure Active 2016 Enctr srvlnc implantabl e subdermal contracept daniel;Ephraimti ce ID: 0001 Not Available [facility] 0 22:01:07 test negative 651935373 Active 2016 Encounter for test, result negative;Orly guerriertice ID: 0001 Not Available [facility] 0 22:01:07 , childbirt h and puerperiu m finding Active 2015 Encounter for supervisio n of normal 1st , 2nd trimester; Recorded Elsewhere: No Locatio n: [facility] rce: EHR Chroni c: N Practice ID: 0001 Billa ble Time: 11:30:00 AM Not Available [facility] 0 22:01:07 , childbirt h and puerperiu m finding Active 2015 Encntr for suprvsn of normal first preg, first trimester; Practice ID: 0001 Not Available [facility] 0 22:01:08 Complicat ion occurring during 479873281 Active 2015 Inj/poisn/ oth conseq of extrn causes comp preg, second tri;Krupa ce ID: 0001 Not Available [facility] 0 22:01:08 Gestation period, 11 weeks 61029794 Active 2015 11 weeks gestation of ; Recorded Elsewhere: No Locatio n: [facility] rce: EHR Chroni c: N Practice ID: 0001 Billa ble Time: 03:15:00 PM Not Available [facility] 0 22:01:09 Notes:Encounter for antenata l screening of mother Recorded Elsewhere: No Location: [facility] Source: EHR Chronic: N Practice ID: 0001 Billable Time: 01:00:00 PM Encounter for screening of mother Practice ID: 0001 Encounter for screening of mother Recorded Elsewhere: No Location: [facility] Source: EHR Chronic: N Practice ID: 0001 Billable Time: 11:00:00 AM Encounter for screening of mother Practice ID: 0001 Problem Notes None recorded. Procedures Surgical History Date Name Laterality Status Provider Name and Address Organization Details Recorded Time 01/28/20 24 Cholecystectomy completed Loreto Pablo JUANVimal [facility] 05/24/2024 11:26:21 Imaging Results None recorded. Procedure Notes None recorded. Medical Equipment None Reported. Allergies No known drug allergies Medications Name Sig Start Date Stop Date Status Note LastModified by Organization Details LastModified Time amoxicill in 500 mg capsule take 1 capsule by oral route every 8 hours 09/26 completed Prescrib ed Elsewher e: No Locat ion: [facility] odify By: suri vallejo DateTime : 04/17/20 16 11:00:00 AM Not Available Not Available Not Available latanopro st 0.005 % eye drops INSTILL 1 DROP BOTH EYES EVERY NIGHT AT BEDTIME 05/24 completed Not Available Not Available Not Available prednison e 10 mg tablet 05/24 completed Not Available Not Available Not Available hydrocodo ne 5 mg-acetam inophen 325 mg tablet TAKE 1 TABLET BY MOUTH THREE TIMES DAILY NEEDED FOR PAIN 05/24 completed Not Available Not Available Not Available Eye Drops (tetrahyd rozoline- zinc sulfate) 0.05 %-0.25 % for glaucoma 05/24 completed Prescrib ed Elsewher e: Yes Loca tion: [facility] odify By: [email or web address] z Encoun ter DateTime : 01/30/20 17 11:30:00 AM Not Available Not Available Not Available doxycycli ne monohydra te 100 mg tablet TAKE 1 TABLET BY MOUTH TWICE DAILY 05/24 completed Not Available Not Available Not Available acetamino phen 500 mg tablet 05/24 completed Not Available Not Available Not Available ondansetr on 8 mg disintegr ating tablet DISSOLVE 1 TABLET ON THE TONGUE THREE TIMES DAILY NEEDED 05/24 completed Not Available Not Available Not Available amoxicill in 875 mg tablet take 1 tablet by oral route every 12 hours 12/01 completed Prescrib ed Elsewher e: No Locat ion: [facility] odify By: janny solis DateTime : 10/30/19 17 03:42:23 PM Not Available Not Available Not Available lidocaine 5 % topical patch 05/24 completed Not Available Not Available Not Available docusate sodium 100 mg capsule 05/24 completed Not Available Not Available Not Available Tagamet HB 200 mg tablet take 1 tablet by oral route 2 times every day 30 minutes before meals 12/01 completed Prescrib ed Elsewher e: No Locat ion: [facility] odify By: janny solis DateTime : 09/06/20 16 02:30:00 PM Not Available Not Available Not Available permethri n 1 % topical liquid apply by topical route a sufficie nt amount of shampoo once allow to remain on hair for 10 minutes before rinsing off with water 10/24 completed Prescrib ed Elsewher e: No Locat ion: [facility] odify By: samantha solis DateTime : 10/24/20 16 02:30:00 PM Not Available Not Available Not Available gabapenti n 100 mg capsule 05/24 completed Not Available Not Available Not Available ibuprofen 600 mg tablet 05/24 completed Not Available Not Available Not Available amoxicill in 875 mg-potass ium clavulana te 125 mg tablet TAKE 1 TABLET BY MOUTH TWICE DAILY 05/24 completed Not Available Not Available Not Available 28 mg iron-800 mcg tablet 12/01 completed Prescrib ed Elsewher e: Yes Loca tion: [facility] odify By: janny solis DateTime : 04/12/20 16 03:15:00 PM Not Available Not Available Not Available Vitals Date Recorded Body weight Body mass index (BMI) Body height Systolic blood pressure Diastolic blood pressure Provider Name and Address Organization Details Last Updated DateTime 05/24/2024 911050.9 8 g 42 kg/m2 162.56 cm 119 mm[Hg] 76 mm[Hg] Loreto Matos [facility] 11:20:31 Social History Question Answer Notes LastModified by Organizat ion Details LastModified Time Tobacco Smoking Status Current Every Day Smoker Loreto stearns, [facility] 05/24/2024 11:25:56 What Is Your Level Of Alcohol Consumption? Occasional Information not available 05/24/2024 Are You Blind Or Do You Have Difficulty Seeing? No Information not available 05/24/2024 Are You Deaf Or Do You Have Serious Difficulty Hearing? No Information not available 05/24/2024 Do You Or Have You Ever Used E-cigarettes Or Vape? Current User Of Electronic Cigarettes Information not available 05/24/2024 How Much Tobacco Do You Smoke? 1 PPW Information not available 05/24/2024 Do You Or Have You Ever Used Any Other Forms Of Tobacco Or Nicotine? Yes Information not available 05/24/2024 Sex: Unknown Functional Status Question Answer Note LastModified by [employer] ion Details LastModified Time Do you have difficulty walking or climbing stairs? No Information not available 05/24/2024 Are you able to walk? YESWOREST Information not available 05/24/2024 Are you able to care for yourself? Yes Information not available 05/24/2024 Do you have difficulty dressing or bathing? No Information not available 05/24/2024 Mental Status None recorded. Family History Relationship Description Onset Age of this Age Resolved Age Notes LastModified by Organization Details LastModified Time Father Diabetes mellitus Not available 2023 11:27:36 Father Hypertensive disorder Not available 2023 11:27:55 Mother Diabetes mellitus Not available 2023 11:27:36 Mother Hypertensive disorder Not available 2023 11:27:55 Mother Hypercholest erolemia Not available 2023 11:28:12 Maternal Aunt Diabetes mellitus Not available 2023 11:27:36 Maternal Grandmother Diabetes mellitus Not available 2023 11:27:36 Maternal Grandfather Hypertensive disorder Not available 2023 11:27:55 Notes:Father: Hypertension, Diabetes mellitus Maternal aunt: Diabetes mellitus, Renal disease Maternal grandfather: Hypertension Maternal grandmother: Diabetes mellitus Mother: Hypertension, high cholesterol, Diabetes mellitus Medical History Condition Response Allergies (Food, seasonal, environmental ) N Other N Breast Cancer N Drug/Latex Allergies/Reactions N Blood Transfusion N Dermatologic Disorders N Lung Disease N Defects or Inherited Disease N Breast Problem N Gestational Diabetes N Hematologic disorders N Anesthesia Complications N History of STI N Deep Vein Thrombosis N Polycystic ovary syndrome N Anxiety Disorder N Autoimmune disease N Arthritis N Infertility N Polyps N Acid Reflux (GERD) N History of abnormal pap N Cancer N Stroke N Varicosities N Neurologic/Epilepsy N Endometriosis N High Cholesterol N Headaches N Fibromyalgia N Kidney Disease N Heart Problems N Kidney or Bladder Problems N Thyroid Problems N GI Problems N Eating Disorder N Anemia N Art (IVF or FET) N Psychiatric Illness N Ovarian Cancer N Diabetes N Pulmonary (TB, Asthma) N Hepatitis/Liver Disease N No Past Medical History N Eczema N Urinary Tract Infection N Abuse/Domestic Violence N Asthma N Trauma/Violence N Depression/ depression N Heart Disease N Pre-Eclampsia N Hypertension N Osteoporosis N Thrombophilias N Gynecological History Statement/Question Response Flow Heavy Date of LMP 05/14/2024 Sexually Active? Y STIs/STDs N Menses Monthly Y Age of first menstrual cycle 14 HPV Vaccine N Sexual Problems? N Current Control Method Tubal Ligat ion LMP Definite Obstetrics History GPAL:G 3 P 3 0 0 3 Type Value Full Term 3 Living 3 Total 3 Past Encounters Encounter ID Performer Location Encounter Start Date Encounter Closed Date Diagnosis/Indication Diagnosis SNOMED-CT Code Diagnosis ICD10 Code Diagnosis Note [id number] Scot Shell MD [facility] [address] [address] 05/24/2024 11:11:33 05/24/2024 12:05:56 Female infertility 9537377 N97.9 This patient is a 29-year-ol d female who presents for fertility questions. Patient has had bilateral salpingect michelle. She wants to know about her options for getting . I discussed those options with the patient. I discussed some aspects of reproducti ve technology . I discussed a referral for her problem. She is considerin g within the next year. She will contact us and we will refer her to Reproducti ve Endocrinol jed. Health Concerns Section Related Observation LastModified by Organization Detai ls LastModified Time None Recorded Concern Status LastModified by Organization Details LastModified Time None Recorded Advance Directives Directive None Recorded Payers Encounter Date Sequence Insurance Name Policy Number Policy Prather Covered Member ID Prather Member ID Guarantor Name 05/24/2024 1 [facility] - DOS ON OR AFTER 21 (MEDICAID REPLACEMENT - HMO) Angelita Jensen [id number] Angelita Jensen Notes Date Note Type Note Provider Name and Address Organization Details Recorded Time 05/24/2024 text/html This patient is a 29-year-old female who presents for fertility questions. Patient has had bilateral salpingectomy. She wants to know about her options for getting . I discussed those options with the patient. I discussed some aspects of reproductive technology. I discussed a referral for her problem. She is considering within the next year. She will contact us and we will refer her to Reproductive Endocrinology. Scot Shell MD [address], [place], [address], [facility] 05/24/2024 12:02:54 OBGyn Episode Ob Episode Information Episode Created Date Number of Fetuses Patient Bloodtype Patient rh Status Prepregnancy Weight lbs Domestic Partner Domestic Partner Phone Father Name Medical Record Retrieval Specialist Status 05/24/20 24 1 CLOSED Fetus Data First Name Last Name Admitted to NICU Weight (g) Sex Living Outcome Pediatric Complications Fetus ID Race Codes Race Delivery Type 2863.07 2704 F Full Term [id number] Vaginal Delivery Tom Calculation Initial Tom Date Initial Exam Date Initial Exam Provider Initial Ultrasound Date Last Menstrual Period Date Ultra Sound Weeks Gestation 0 Eighteen To Twenty Week Tom Update Ultra Sound Date Fundal Height At Umbil Quickening Date Ultra Sound Latest Weeks Gestation Final Tom Confirmed By Final Tom Confirmed Date Final Tom Date Ultra Sound Latest Days Gestation 0 0 Menstrual History Last Menstrual Date Menses Monthly On Bcp Conception Prior Menses Frequency Hcg Plus Date Menarche Onset Age Delivery Information Delivery Date Delivery Type Labor Anesthesia Weeks Gestation Incision Type Labor Labor Length Hrs Delivered By Post Complications Tubal Sterilization Discharge Date Comments 3 Discharge Information Feeding Method Contraceptive Method Maternal HG B and HCT Levels Ob Episode Information Episode Created Date Number of Fetuses Patient Bloodtype Patient rh Status Prepregnancy Weight lbs Domestic Partner Domestic Partner Phone Father Name Medical Record Retrieval Specialist Status 05/24/20 24 1 CLOSED Fetus Data First Name Last Name Admitted to NICU Weight (g) Sex Living Outcome Pediatric Complications Fetus ID Race Codes Race Delivery Type 3089.86 8704 M Full Term [id number] Vaginal Delivery Tom Calculation Initial Tom Date Initial Exam Date Initial Exam Provider Initial Ultrasound Date Last Menstrual Period Date Ultra Sound Weeks Gestation 0 Eighteen To Twenty Week Tom Update Ultra Sound Date Fundal Height At Umbil Quickening Date Ultra Sound Latest Weeks Gestation Final Tom Confirmed By Final Tom Confirmed Date Final Tom Date Ultra Sound Latest Days Gestation 0 0 Menstrual History Last Menstrual Date Menses Monthly On Bcp Conception Prior Menses Frequency Hcg Plus Date Menarche Onset Age Delivery Information Delivery Date Delivery Type Labor Anesthesia Weeks Gestation Incision Type Labor Labor Length Hrs Delivered By Post Complications Tubal Sterilization Discharge Date Comments 0 Discharge Information Feeding Method Contraceptive Method Maternal HG B and HCT Levels Ob Episode Information Episode Created Date Number of Fetuses Patient Bloodtype Patient rh Status Prepregnancy Weight lbs Domestic Partner Domestic Partner Phone Father Name Medical Record Retrieval Specialist Status 05/24/20 24 1 CLOSED Fetus Data First Name Last Name Admitted to NICU Weight (g) Sex Living Outcome Pediatric Complications Fetus ID Race Codes Race Delivery Type 3061.74 6 F Full Term [id number] Vaginal Delivery Tom Calculation Initial Tom Date Initial Exam Date Initial Exam Provider Initial Ultrasound Date Last Menstrual Period Date Ultra Sound Weeks Gestation 0 Eighteen To Twenty Week Tom Update Ultra Sound Date Fundal Height At Umbil Quickening Date Ultra Sound Latest Weeks Gestation Final Tom Confirmed By Final Tom Confirmed Date Final Tom Date Ultra Sound Latest Days Gestation 0 0 Menstrual History Last Menstrual Date Menses Monthly On Bcp Conception Prior Menses Frequency Hcg Plus Date Menarche Onset Age Delivery Information Delivery Date Delivery Type Labor Anesthesia Weeks Gestation Incision Type Labor Labor Length Hrs Delivered By Post Complications Tubal Sterilization Discharge Date Comments 7 Discharge Information Feeding Method Contraceptive Method Maternal HG B and HCT Levels
--- OUTSIDE RECORDS SUMMARY | 2025-03-02 12:52 | XMS_ITS | Clinical Summary ---
Author Organization [facility] Address [address] [place] [address] Care Team Providers Care Baby Doctor Name Role Phone Keren Valentin Monty KATZ-TV TECHNICIAN Primary Care Provider + Source Comments [facility],non-owned Affiliates and Associated Physician Practices is amultiple site organization consisting of ambulatory clinics and hospital sitesin [place], [place] and [place]. This disclosure is being madepursuant to the Care Everywhere program and may not contain all information available regarding this patient. Last updated 18.[facility] Allergies No known active allergies Medications * Be aware that medications may not be up to date on this document. Alwaysverify current medications with the patient. blood glucose (ONETOUCH VERIO) test strip To monitor blood glucose 4x daily- fasting, 1 hour after meals, and as needed 120 strip 0 Active Lancets (ONETOUCH DELICA PLUS 33G EXTRA FINE LANCET) To monitor blood glucose 4x daily 150 Each 0 Active Vit-Fe Fumarate-FA ( VITAMIN) 28-0.8 MG tablet Take 1 tablet by mouth once daily Active escitalopram (LEXAPRO) 10 MG tablet 10 mg once daily 0 Active calcium carbonate (TUMS) 500 MG chew tablet Take 1 tablet by mouth as needed for Heartburn Active docusate sodium (COLACE) 100 MG capsule Take 1 capsule by mouth 2 times daily 60 capsule 1 0 Active Active Problems Problem Noted Date Diagnosed Date Encounter for planned induction of labor 020 Oligohydramnios, antepartum 07/08/2020 Overview (07/08/2020): LOIDA 6.89 today on preliminary, 2x2 pocket Insulin controlled gestation al diabetes mellitus (GDM) in third trimester 06/07/2020 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 (F LUZONE; FLULAVAL; FLUARIX; AFLURIA QUADRIVALENT; 6MO+), 0.5 ML (IIV4) 07/14/2020 MMR 07/13/2020() TDAP (7yrs+) 07/14/2020,07/13/2020() Social History Tobacco Use Types Packs/Day Years Used Date Smoking Tobacco: Every Day Cigarettes Smokeless Tobacco: Never Tobacco Cessation:Ready to Q uit: Yes Alcohol Use Standard Drinks/Week Comments Never 0 (1 standard drink = 0.6 oz pur e alcohol) AUDIT-C Answer Date Recorded Q1: How often do you have a drink containing alc ohol? Never 07/11/2020 Average Number of Drinks Not on file 020 Frequency of Binge Drinking Not on file 06/29 Comments No Sex and Gender Information Value Date Recorded Sex Assigned at Not on file Legal Sex Female 10:39 AM CDT Gender Identity Not on file Sexual Orientation Not on file Last Filed Vital Signs Vital Sign Reading Time Taken Comments Blood Pressure 128/72 07/14/2020 1:51 PM CDT Pulse 93 07/14/2020 1:51 PM CDT Temperature 36.7 C (98.1 F) 07/14/2020 1:51 PM CDT Respiratory Rate 18 07/14/2020 1:51 PM CDT Oxygen Saturation 100% 07/14/2020 1:51 PM CDT Inhaled Oxygen Concentration - - Weight 113.2 kg (249 lb 9.6 oz) 07/11/2020 8:16 PM CDT Height 161.3 cm (5' 3.5) 07/11/2020 8:16 PM CDT Body Mass Index 43.52 07/11/2020 8:16 PM CDT Plan of Treatment Health Maintenance Due Date Last Done Comments HIV SCREENING 2012 HEPATITIS C SCREENING 04/18/2015 HEPATITIS B VACCINE (1 of 3 - 19+ 3-dose series) 2016 PNEUMOCOCCAL VACCINE (1 of 2 - PCV) 2016 COVID-19 VACCINE ( - season) 2024 DEPRESSION SCREENING 10/29/2024 INFLUENZA VACCINE (Season Ended) 2025 07/14/2020, 11/12/2019, 10/10/2016, Additional history exists DTAP/TDAP/TD VACCINES (2 - Td or Tdap) 07/14/2030 07/14/2020 ZOSTER VACCINE (1 of 2) 2047 HIB VACCINE Aged Out No longer eligi ble based on patient's age to complete this topic HPV VACCINE Aged Out No longer eligi ble based on patient's age to complete this topic MENINGOCOCCAL (Group B) VACCINE SHARED DECISION-MAKING Aged Out No longer eligible based on patient's age to complete this topic MENINGOCOCCAL GROUPS A/C/Y/W VACCINE Aged Out No longer eligible based on patient's age to complete this topic Procedures Procedure Name Priority Date/Time Associated Diagnosis Comments CULTURE STREP B Routine 06/14/2020 9:48 AM CDT , unspecified gestational age from Last 3 Months or Most Recently Relevant to Health Maintenance Results * CULTURE STREP B (06/14/2020 9:48 AM CDT) Culture Strep B Negative for beta-hemolytic Streptococcus Group B LEONOR 06/18/2020 8:16 AM CDT [facility] MICRO[facility]OLOG[facility] Microbiology MISCELLANEOUS SAMPLES / Unknown Collection / Unknown 06/14/2020 9:48 AM CDT 06/14/2020 9:53 AM CDT Latasha Tejada MEDICAL RESEARCHER-TV TECHNICIAN LAB - MICROBIOLOGY ORDERA BLES Final Result [facility] [address] [place] [address], [facility] [phone] from Last 3 Months or Most Recently Relevant to Health Maintenance Insurance [facility] [place] [address] Advance Directives * Full Code (Latest Code Status on File) Date Activated Date Inactivated Comments 07/11/2020 8:45 PM 07/14/2020 3:14 PM Care Teams Baby Doctor Relationship Specialty Start Date End Date Keren Valentin, STERLING-TV TECHNICIAN [address] [address] PCP - General Nurse Practitioner 03/04/13
--- OUTSIDE RECORDS SUMMARY | 2025-03-02 12:52 | XMS_ITS | Referral Summary ---
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, severe stage (Primary Dx) 12/31/2024 8:00 AM DIRECTOR STUDENT UNION Imaging Exam [facility] Ophthalmology [address] [place] [address] [phone] 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 Norma Kevin [...] 2hr GTT 6 weeks [] Referral to [facility] Medicine clinic - number provided today Depression [...] Never 11/27/2022 How often do you attend uatsdin or adventism serv ices? Never 11/27/2022 Do you belong to any clubs o r organizations such as uatsdin groups, unions, fraternal or athletic groups, or [...] medical care, and heating? Somewhat hard 11/27/2022 [facility] of Occupat ional Health - Occupational Stress [...] place to sleep or slept in a penitentiary (including now)? 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 PAP WITH REFLEX TO HIGH RISK HPV Routine 12/12/2022 4:18 PM DIRECTOR STUDENT UNION , unspecified gestational age HEPATITIS C ANTIBODY Routine 11/27/2022 12:22 PM DIRECTOR STUDENT UNION care, antepartum from Last 3 Months or Most Recently Relevant to Health Maintenance Results * Ruiz Visual Field - OU - Both Eyes (12/31/2024 8:14 AM DIRECTOR STUDENT UNION) Pattern Deviation OS 1.30 dB CONTINUUM Pattern Deviation OD 16.32 dB CONTINUUM Mean Deviation OS -0.22 dB CONTINUUM Mean Deviation OD -15.52 dB CONTINUUM Anatomical Region Laterality Modality Head Other Narrative 12/31/2024 5:32 PM DIRECTOR STUDENT UNION Right Eye Fixation was good. Cooperation was [...] OU - Both Eyes (12/31/2024 7:48 AM DIRECTOR STUDENT UNION) RNFL OS 110 micrometers CONTINUUM RNFL OD 66 micrometers CONTINUUM Anatomical Region Laterality Modality Head Other Narrative 12/31/2024 5:32 PM DIRECTOR STUDENT UNION Right Eye Reliability was good. Temporal thickness [...] to High Risk HPV (12/12/2022 4:18 PM DIRECTOR STUDENT UNION) Thin prep (Pap test) 12/12/2022 4:18 PM DIRECTOR STUDENT UNION 12/12/2022 5:24 PM DIRECTOR STUDENT UNION Narrative PATHOLOGY [facility] - 12/16/2022 12:08 PM DIRECTOR STUDENT UNION EPIC results best viewed via link to PDF [facility] Aundrea Romo [facility] [place] [address] Note to Patients: This report may contain [...] Gender: F : 1995 (Age: 27) Address: [address] [place] [address] Hospital #: [id number] Service: UNKNOWN Location: Patient Type: [facility] SPECIMEN Taken: 12/12/2022 Received: 12/12/2022 Accessioned: 12/12/2022 [...] clinical information and biopsy results as indicated. [facility] Clinical Laboratory Improvement Amendments (CLIA) mandate that cytologic and histologic results be correlated for laboratory quality assurance lead & improvement standards. FOR ALL HIGH-GRADE CASES [...] determined by the Surgical Pathology Department at [facility] as part of an ongoing quality assurance lab technician program and in compliance with federally mandated [...] determined by the Surgical Pathology Department of [facility]. It has not been cleared or approved by the U. S. Food and Drug Administration. Ariela Dias MD LAB CYTOLOGY ORDERABLES Final Result PATHOLOGY [facility] 3rd Floor [place], [place] [phone] * Hepatitis C antibody (11/27/2022 12:22 PM DIRECTOR STUDENT UNION) Hep C Ab Nonreactive Nonreactive [facility] Comment:Antibodies to HCV no t detected. Does NOT exclude the possibility of recent exposure to HCV. Current interpretive data was last revised on 22 Blood 11/27/2022 12:2 2 PM DIRECTOR STUDENT UNION 11/27/2022 2:06 PM DIRECTOR STUDENT UNION us Ariela Dias MD LAB MICROBIOLOGY - GENER AL ORDERABLES Final Result [facility] [place] [address] from Last 3 Months or Most Recently Relevant to Health Maintenance Insurance [facility] Advance Directives For more information, please contact: [phone] * Full Code (Latest Code Status on File) Date Activated Date Inactivated Comments 05/30/2023 10:01 AM 06/01/2023 5:11 PM * Full Code Date Activated Date Inactivated Comments 05/29/2023 9:25 AM 05/30/2023 10:01 AM Full CPR in c ase of cardiopulmonary arrest Care Teams Waiter Relationship Specialty Start Date End Date Leta Graff PA [address] [place] [address] PCP - General 03/13/20 Norma Kevin, TREVER [address] [place] [address] Primary Eye Care Provider Optometry 02/06/22
--- OUTSIDE RECORDS SUMMARY | 2025-03-02 12:52 | XMS_ITS | Clinical Summary ---
Author Organization [facility] Address [address] [place] [address] Care Team Providers Care Security Intern Name Role Phone Leta Graff Primary Care Provi chilo Norma Kevin OD Unavailable [phone] Allergies No known active allergies Medications latanoprost [...] 12/31/2024 Assessment & Plan (12/31/2024 9:04 PM SAND POLISHER): 1st Visit Referred by Dr. 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 Ophthalmology 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 Ophthalmology [address] [phone] Indeterminate stage angle recession glaucoma of right [...] Never 11/27/2022 How often do you attend faith or presybeterian serv ices? Never 11/27/2022 Do you belong to any clubs o r organizations such as faith groups, unions, fraternal or athletic groups, or [...] medical care, and heating? Somewhat hard 11/27/2022 [facility] of Occupat ional Health - Occupational Stress [...] place to sleep or slept in a chcf (including now)? 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 on file Not [...] ont Epidur al Livin g Complications:None Delivery Location:[place] 2022 Term 38w 3d 0h 39m 0h 31m/0h 08m 2.89 kg (6 lb 5.9 oz) F Vagina l Epidur al N Livin g 8 9 FERRE JUNIOR,G DIANE taylor, Jessie nam MD Complications:None Delivery Location:[facility] Main C ampus ([facility] 58LD) Last Filed Vital Signs Vital Sign [...] - BOTH EYES Routine 12/31/2024 8:14 AM SAND POLISHER 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 OCT, OPTIC NERVE - OU - BOTH EYES Routine 12/31/2024 7:48 AM SAND POLISHER 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 PAP WITH REFLEX TO HIGH RISK HPV Routine 12/12/2022 4:18 PM SAND POLISHER , unspecified gestational age HEPATITIS C ANTIBODY Routine 11/27/2022 12:22 PM SAND POLISHER care, antepartum from Last 3 Months or Most Recently Relevant to Health Maintenance Results * Ruiz Visual Field - OU - Both Eyes (12/31/2024 8:14 AM SAND POLISHER) Pattern Deviation OS 1.30 dB CONTINUUM Pattern Deviation OD 16.32 dB CONTINUUM Mean Deviation OS -0.22 dB CONTINUUM Mean Deviation OD -15.52 dB CONTINUUM Anatomical Region Laterality Modality Head Other Narrative 12/31/2024 5:32 PM SAND POLISHER Right Eye Fixation was good. Cooperation was [...] central sparing OS: wnl Cely Rubio MD [facility] VISUAL FIELD Final Result * OCT, Optic Nerve - OU - Both Eyes (12/31/2024 7:48 AM SAND POLISHER) RNFL OS 110 micrometers CONTINUUM RNFL OD 66 micrometers CONTINUUM Anatomical Region Laterality Modality Head Other Narrative 12/31/2024 5:32 PM SAND POLISHER Right Eye Reliability was good. Temporal thickness [...] to High Risk HPV (12/12/2022 4:18 PM SAND POLISHER) Thin prep (Pap test) 12/12/2022 4:18 PM SAND POLISHER 12/12/2022 5:24 PM SAND POLISHER Narrative PATHOLOGY [facility] - 12/16/2022 12:08 PM SAND POLISHER EPIC results best viewed via link to PDF [facility] Aundrea Romo Laboratory [place] [address] Note to Patients: This report may contain [...] Gender: Pj : 1995 (Age: 27) Address: [address] [place] [address] [facility] #: [id number] Service: UNKNOWN Location: Patient Type: [facility] SPECIMEN Taken: 12/12/2022 Received: 12/12/2022 Accessioned: [...] clinical information and biopsy results as indicated. [facility] Clinical Laboratory Improvement Amendments (CLIA) mandate that cytologic and histologic results be correlated for laboratory quality systems manager & improvement standards. FOR ALL HIGH-GRADE [...] determined by the Surgical Pathology Department at [facility] as part of an ongoing quality systems specialist program and in compliance with federally mandated [...] determined by the Surgical Pathology Department of [facility]. It has not been cleared or approved by the U. S. Food and Drug Administration. us Ariela Dias MD LAB CYTOLOGY ORDERABLES Final Result PATHOLOGY [facility] 3rd Floor [place], [place] [phone] * Hepatitis C antibody (11/27/2022 12:22 PM SAND POLISHER) Hep C Ab Nonreactive Nonreactive [facility] Comment:Antibodies to HCV no t detected. Does NOT exclude the possibility of recent exposure to HCV. Current interpretive data was last revised on 22 Blood 11/27/2022 12:2 2 PM SAND POLISHER 11/27/2022 2:06 PM SAND POLISHER us Ariela Dias MD LAB MICROBIOLOGY - GENER AL ORDERABLES Final Result Performing Organization Address City/State/[facility] Co de Phone Number [facility] [place] [address] from Last 3 Months or Most Recently Relevant to Health Maintenance Insurance [facility] Advance Directives For more information, please contact: [phone] * Full Code (Latest Code Status on File) Date Activated Date Inactivated Comments 05/30/2023 10:01 AM 06/01/2023 5:11 PM * Full Code Date Activated Date Inactivated Comments 05/29/2023 9:25 AM 05/30/2023 10:01 AM Full CPR in c ase of cardiopulmonary arrest Care Teams Security Intern Relationship Specialty Start Date End Date Leta Graff PA [address] [place] [address] PCP - General 03/13/20 Norma Kevin OD [address] [place] [address] Primary Eye Care Provider Optometry 02/06/22
--- NOTE | 2025-03-02 13:16 | ED.NEUROSD ---
HPI - Neuro Symptoms/Deficit General Chief Complaint: Neuro Symptoms/Deficit Stated Complaint: R sided facial numbness 4 days Time Seen by Provider: 03/02/25 12:03 History of Present Illness HPI Narrative: Patient is a 29-year-old female who presents ER with numbness and headache. Headache right-sided ongoing for 4 days. Behind the right eye and stabbing and moves laterally and posteriorly. Is associated with tingling of the right cheek and forehead her today her noticed that she had difficulty lifting her eyebrow on the right side and also had a symmetric smile. Also reports waking up this morning and having 20 minutes of blurred vision in the right eye and put on her glasses. No history of migraine. No recent viral illness. No extremity weakness. She does have some tingling in the median nerve distribution right hand has been ongoing over same amount of time. No flashes or floaters in the field of vision. No loss of vision at this time. Related Data Allergies Allergy/AdvReac Type Severity Reaction Status Date / Time No Known Allergies Allergy Verified 03/02/25 10:27 Review of Systems Review of Systems: All systems reviewed & are unremarkable except as noted in HPI and below Constitutional: Constitutional: Reports no additional constitutional complaints Eyes: Eyes: Reports no additional eye complaints ENT: Reports system reviewed and no additional complaints, except as documented Neurologic: Reports system reviewed and no additional complaints, except as documented PMFSH Past Medical History Medical History (Updated 03/02/25 @ 20:08 by Madhav Neal MD) Healthy female adult Surgical History Surgical History (Updated 03/02/25 @ 13:19 by Madhav Neal MD) No history of previous surgery Exam Narrative: GENERAL: Well-appearing, well-nourished, and in no acute distress. HEAD: Normocephalic, atraumatic. EYES: PERRL and EOMI. ENT: Mucous membranes moist. NECK: Supple. CHEST: Clear to auscultation. No respiratory distress. HEART: Regular rate and rhythm. Normal peripheral pulses. EXTREMITIES: Normal range of motion. No edema. SKIN: Warm, dry, no rash. NEURO: Right facial weakness with smiling and lifting the right eyebrow. Reports decreased pinprick to the forehead and cheek. No upper lower extremity drift. No dysmetria. Clear speech and no expressive aphasia. Alert and oriented x3. PSYCH: Normal mood and affect. Course Course Emergency Course: 1403: Headache resolved after migraine cocktail. Still with asymmetric facial nerve exam. Patient still reports tingling in the right hand. Discussed with neurology who recommends CTA of the head neck. If no significant abnormality recommends admission for MRI. 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 She has signed out against medical advice recognizing that she could have deterioration or health resulting in permanent disability or . Vital Signs Vital signs: Vital Signs Temperature 98.5 F 03/02/25 10:43 Pulse Rate 88 03/02/25 10:43 Respiratory Rate 18 03/02/25 10:43 Blood Pressure 133/87 03/02/25 10:43 Pulse Oximetry 100 03/02/25 10:43 Oxygen Delivery Room Air 03/02/25 10:43 Temperature 98.5 F 03/02/25 10:43 Pulse Rate 81 03/02/25 17:04 Respiratory Rate 16 03/02/25 17:04 Blood Pressure 126/69 03/02/25 17:04 Pulse Oximetry 100 03/02/25 17:04 Oxygen Delivery Room Air 03/02/25 10:43 MDM - Neuro Symptoms/Deficit Lab Data 03/02/25 11:33 03/02/25 11:33 Labs: Lab Results 03/02/25 03/02/25 Range/Units 11:33 14:13 WBC 7.9 (4.5-10.0) K/mm3 RBC 4.15 L (4.2-5.4) M/mm3 Hgb 12.5 (12.0-15.0) g/dL Hct 39.2 (37.0-47.0) % MCV 94.5 (80-100) fl MCH 30.1 (26-34) pg MCHC 31.9 L (32-36) g/dl RDW 12.0 (11.5-14.5) % Plt Count 352 (150-375) k/mm3 MPV 10.4 (7.4-10.4) fl Immature Gran % (Auto) 0.8 H (0-0.5) % Neut % (Auto) 52.6 (45.5-73.1) % Lymph % (Auto) 38.0 (18.3-44.2) % [place] % (Auto) 6.7 (2.6-8.5) % Eos % (Auto) 1.4 (0-4.4) % Baso % (Auto) 0.5 (0.2-1.2) % Lymph # (Auto) 3.02 (0.9-3.2) K/mm3 [place] # (Auto) 0.5 (0.1-0.6) K/mm3 Eos # (Auto) 0.1 (0-0.3) K/mm3 Baso # (Auto) 0.0 (0.0-0.1) K/mm3 Abs Immat Gran (auto) 0.06 H (0.00-0.031) K/mm3 Absolute Neuts (auto) 4.2 (1.3-6.7) K/mm3 Absolute Nucleated RBC 0.000 (0.0-0.012) K/mm3 Nucleated RBC % 0.0 (0.0-0.2) % PT 12.8 (11.1-14.7) Seconds INR 0.9 APTT 28.5 (22.3-36.8) Seconds Sodium 137 (137-145) mmol/L Potassium 3.6 (3.4-5.0) mmol/L Chloride 104 (98-107) mmol/L Carbon Dioxide 28 (22-30) mmol/L Anion Gap 5 (4-12) mmol/L BUN 12 (7-17) mg/dL Creatinine 0.57 L (0.7-1.0) mg/dL Estim Creat Clear Calc 157 ml/min Estimated GFR > 60 (59 - ) Glucose 118 H (65-110) mg/dL Calcium 8.5 (8.4-10.2) mg/dL Total Bilirubin 0.3 (0.2-1.3) mg/dL AST 25 (14-36) U/L ALT 28 (6-35) U/L Alkaline Phosphatase 100 (38-126) U/L Troponin I < 0.012 (0.000-0.034) ng/mL Total Protein 7.0 (6.3-8.2) g/dL Albumin 3.9 (3.5-5.1) g/dL POC Urine HCG, Qual Negative (Negative) Imaging Data Radiologist's impression: ITS Impressions Head CT 03/02/25 12:04 IMPRESSION: No acute intracranial findings. Chest X-Ray 03/02/25 12:12 Impression: Normal chest. Head/Neck CTA 03/02/25 14:42 IMPRESSION: 1. No evident atherosclerotic plaque with 0% stenosis of the right carotid bulb relative to normal distal artery lumen diameter (NASCET criteria). 2. Unremarkable cerebral CT angiogram with no hemodynamically significant stenosis, aneurysm or dissection. Discharge Plan Discharge Clinical Impression: Facial droop, Headache Patient Disposition: Left Against Medical Advice Condition: Guarded Prognosis Patient Language: Occitan
[2025-03-02 14:15] LABS: BEDSIDEPREGUCG Negative (Negative)
--- NOTE | 2025-03-02 15:35 | PM.IMHP ---
H&P: HPI History of Present Illness Date/Time: 03/02/25 15:35 Chief Complaint: Headache Narrative: 29-year-old female with no past medical history presents the hospital with headache. She states that the headache has been going on provider days and has not gotten any better. She presented to the hospital. In the ED the patient also had a facial droop. Patient's CBC and BMP is within normal limits. Chest x-ray shows normal cardiopulmonary findings. Head CT shows no acute findings, CTA is unremarkable. Neurology was consulted with recommendations for MRI. Review of Systems Review of Systems: 12 systems were reviewed and are negative except for as per HPI. [facility] Past Medical History Medical History (Updated 03/02/25 @ 15:40 by Maddison Rivera APRN) Healthy female adult Surgical History Surgical History (Updated 03/02/25 @ 13:19 by Madhav Neal MD) No history of previous surgery Meds Home Medications and Allergies Allergies Allergy/AdvReac Type Severity Reaction Status Date / Time No Known Allergies Allergy Verified 03/02/25 10:27 Vital Signs Vital Signs - 24 hr 03/02/25 10:43 03/02/25 11:16 03/02/25 11:36 Temperature 98.5 F Pulse Rate 88 78 77 Respiratory Rate 18 21 H 18 Blood Pressure 133/87 141/95 H Pulse Oximetry 100 100 99 Oxygen Delivery Room Air 03/02/25 12:09 03/02/25 12:34 Temperature Pulse Rate 70 79 Respiratory Rate 16 22 H Blood Pressure 123/61 Pulse Oximetry 98 Oxygen Delivery Exam Narrative: General: well appearing, appears stated age. HEENT: normocephalic, atraumatic. Mucous membranes moist. EOMI, PERRLA, bilateral sclera anicteric, no conjunctival injection. Neck supple without JVD, lymphadenopathy, or bruit. Respiratory: clear to ascultation bilaterally. No rales/rhonic/wheezes. Cardiovascular: Regular rate and rhythm, normal S1-S2 upon ascultation. No murmurs, rubs, or clicks. PMI is nondisplaced, capillary refill less than 3 second. Abdomen: Soft, round, no pulsatile masses, nondistended and nontender. No rebound, no guarding. No CVA tenderness, no hepatosplenomegaly. Bowel sounds present to all four quadrants. No high pitch or tinkling sounds, resonant to percussion. Extremities: No cyanosis, clubbing, or edema present. Pulses are palpable 2/2. Active ROM to all four extremities. Neuro: Alert and orientated x 4. PERRLA. Cranial nerves 2-12 intact without focal deficit. Skin: Warm, dry, and intact, without rash, erythema, or lesion. Psych: pleasant, cooperative, normal speech, normal affect, no hallucinations, no dysarthia H&P: Results Labs Labs: Short CBC 03/02/25 Range/Units 11:33 WBC 7.9 (4.5-10.0) K/mm3 Hgb 12.5 (12.0-15.0) g/dL Hct 39.2 (37.0-47.0) % Plt Count 352 (150-375) k/mm3 BMP 03/02/25 11:33 Sodium 137 Potassium 3.6 Chloride 104 Carbon Dioxide 28 BUN 12 Creatinine 0.57 L Glucose 118 H Calcium 8.5 Cardiac Enzymes 03/02/25 Range/Units 11:33 Troponin I < 0.012 (0.000-0.034) ng/mL Liver Function 03/02/25 Range/Units 11:33 Total Bilirubin 0.3 (0.2-1.3) mg/dL AST 25 (14-36) U/L ALT 28 (6-35) U/L Alkaline Phosphatase 100 (38-126) U/L Albumin 3.9 (3.5-5.1) g/dL Assessment and Plan Assessment and plan (1) Facial droop: Code(s): R29.810 - Facial weakness Status: Acute Assessment and Plan: CT head and CTA head and neck with no acute findings Neurology consulted MRI brain pending (2) Headache: Code(s): R51.9 - Headache, unspecified Status: Acute Assessment and Plan: Toradol p.r.n. Avoid narcotics for headache Quality VTE Prophylaxis VTE prophylaxis: mechanical ordered If No VTE Prophylaxis Answer both mechanical and pharmacologic: Reason no pharmacologic proph: low risk/not indicated
== END 2025-03-02 17:08 | disposition left against medical advice (07) ==
PROVIDERS: Emergency Medicine; Emergency Provider Emergency Medicine
DX: R51.9 Headache, unspecified (principal); R29.810 Facial weakness
CPT/HCPCS: 36415; 70450; 70496; 70498; 71045; 80053; 81025; 84484; 85025; 85610; 85730; 93005; 96361; 96374; 96375; 99284; A9270; J1200; J1885; J2765; J7030; Q9967

== ENCOUNTER 2025-03-03 09:41 | Observation (INO) | payer OTHER, SELFPAY ==
[2025-03-03] VITALS (8 sets, daily range): BP systolic 116–138; BP diastolic 63–87; PULSE 60–90; RESP 16–19; TEMP 36.3–36.7; O2SAT 99–100; BMI 46.0
--- NOTE | ~2025-03-03 | MR_ITS ---
EXAMINATION: MR thoracic spine wo con DATE: 03/05/2025 08:53 INDICATION: Neurological symptoms. Upper arm numbness. TECHNIQUE: Magnetic resonance imaging (MRI) of the thoracic spine was performed without intravenous c ontrast. Sagittal localizer T1-weighted FSE of the cervicothoracic spine was obtained. Thoracic spine sequences included sagittal T2-weighted FSE, sagittal T1-weighted SE, Sagittal T2-weighted FS FSE, a nd axial T2-weighted FSE. COMPARISON: None FINDINGS: Alignment is normal.Vertebral body heights are normal. Normal marrow signal.Normal disc heights and s ignal. There is normal spinal cord signal. The conus terminates at L2. The discs do not extend beyond the endplate margins with no central canal stenosis. There is multilevel mild thoracic facet osteoar thritis. No neural foraminal stenosis. Paravertebral soft tissues are unremarkable. IMPRESSION: 1. Multilevel mild thoracic facet osteoarthritis. Otherwise normal thoracic spine MRI. Reviewed, dictated and finalized at location A. IMPRESSION: 1. Multilevel mild thoracic facet osteoarthritis. Otherwise normal thoracic spi ne MRI.
--- NOTE | ~2025-03-03 | MR_ITS ---
EXAMINATION: MR brain/brain stem wo/w con DATE: 03/03/2025 16:15 INDICATION: Neurologic symptoms with upper arm numbness, headache and facial weakness TECHNIQUE: Magnetic resonance imaging (MRI) of the brain and brainstem was performed without and with 20 mL ProHance intravenous contrast. Sequences included sagittal and axial T1-weighted SE, axial dif fusion-weighted FS SE, axial T2*-weighted GRE, axial T2-weighted FLAIR, and axial T2-weighted FSE. Po stcontrast axial and coronal T1-weighted SE was obtained. Apparent diffusion coefficient (ADC) maps w ere created. COMPARISON: None. FINDINGS: There is metallic magnetic field artifact associated with the patient's braces which obscures the ant erior aspect of the frontal lobes, the anteriormost aspect of the bilateral temporal lobes, portions of the anterior basal ganglia as well as a band across the central cerebellar hemispheres on the diff usion weighted and susceptibility weighted images. No evident regions of cytotoxic or vasogenic edema on the T2 PROPELLER sequences which includes entire brain without artifact. There are no areas of re stricted diffusion to suggest acute infarction. No intracranial hemorrhage or abnormal intracranial m ass lesion. There are no intraparenchymal signal abnormalities seen on the other pulse sequences. The ventricles are symmetric and normal in size. There are no abnormal extra-axial fluid collections. Fl ow voids are seen in the cerebral arteries on the T2-weighted sequences consistent with their expecte d patency. There are no areas of abnormal enhancement on the post contrast images. IMPRESSION: 1. Significant metallic magnetic field artifact obscuring portions of the brain on the diffusion weig hted and susceptibility weighted images as detailed above. Otherwise unremarkable brain MR with freddy l-appearing brain with no evident acute intracranial process or abnormally enhancing brain lesions. Reviewed, dictated and finalized at location A. IMPRESSION: 1. Significant metallic magnetic field artifact obscuring portions of the brain on the diffusion weighted and susceptibility weighted images as detailed above . Otherwise unremarkable brain MR with normal-appearing brain with no evident a cute intracranial process or abnormally enhancing brain lesions.
--- NOTE | ~2025-03-03 | XR_ITS ---
EXAMINATION: XR lumbar puncture diagnostic DATE: 03/04/2025 17:46 INDICATION: Neurologic symptoms concerning for multiple sclerosis. TECHNIQUE: The procedure including the risks and benefits was discussed with the patient. Risks discu ssed included spinal headache, cerebrospinal fluid leak, bleeding, and infection. The patient underst ood the risks and agreed to proceed. A timeout was performed to verify the patient's name, date of , and procedure to be performed. The skin overlying the L3-L4 level was prepped and draped in usual sterile fashion. Subcutaneous 1% lidocaine was used for local anesthesia. A 22 gauge spinal n eedle was advanced under fluoroscopic guidance. The needle was removed and the entry site was cleaned and dressed. There were no immediate complications. A total of 2 fluoroscopic images and one crosst able lateral radiograph were obtained. The amount of fluoroscopy time used during this procedure was 0.4 minutes. Total DAP was 13.4 Gycm^2. FINDINGS: Real-time fluoroscopy demonstrates the needle at the L3-L4 level. Opening pressure was 34. (Normal range is variably defined as 6-20 cm water and up to 25 cm water in obese patients. Pressure >25 cm water is one of the modified Dandy criteria for idiopathic intracranial hypertension). 14 mL o f clear, colorless fluid was collected in 4 tubes. IMPRESSION: 1. Successful fluoro-guided lumbar puncture with elevated opening pressure of 34 cm water. Reviewed, dictated and finalized at location A. IMPRESSION: 1. Successful fluoro-guided lumbar puncture with elevated opening pressure of 3 4 cm water.
--- NOTE | ~2025-03-03 | MR_ITS ---
EXAMINATION: MR cervical spine wo con DATE: 03/03/2025 16:16 INDICATION: Upper arm numbness TECHNIQUE: Magnetic resonance imaging (MRI) of the cervical spine was performed without intravenous c ontrast. Sequences included sagittal T2-weighted FSE, sagittal T2-weighted FS FSE, sagittal T1-weight ed FSE, axial MERGE and axial T2-weighted FSE. COMPARISON: None FINDINGS: Straightening of the normal cervical lordosis. Vertebral body heights are normal. Bone marrow signa l intensity is normal. Intervertebral disc heights are normal. Cord signal intensity is normal. Cervi jazmin soft tissues are unremarkable. The following disc levels are specifically discussed: C2-C3: The disc does not extend beyond the endplate margin. There is no uncovertebral joint osteoarth ritis. There is no facet joint osteoarthritis. There is no neural foraminal stenosis. There is no gaby tral canal stenosis. C3-C4: The disc does not extend beyond the endplate margin. There is no uncovertebral joint osteoarth ritis. There is no facet joint osteoarthritis. There is no neural foraminal stenosis. There is no gaby tral canal stenosis. C4-C5: The disc does not extend beyond the endplate margin. There is no uncovertebral joint osteoarth ritis. There is no facet joint osteoarthritis. There is no neural foraminal stenosis. There is no gaby tral canal stenosis. C5-C6: The disc does not extend beyond the endplate margin. There is mild left uncovertebral joint os teoarthritis. There is no facet joint osteoarthritis. There is no neural foraminal stenosis. There is no central canal stenosis. C6-C7: The disc does not extend beyond the endplate margin. There is no uncovertebral joint osteoarth ritis. There is no facet joint osteoarthritis. There is no neural foraminal stenosis. There is no gaby tral canal stenosis. C7-T1: The disc does not extend beyond the endplate margin. There is no uncovertebral joint osteoarth ritis. There is mild bilateral facet joint osteoarthritis. There is no neural foraminal stenosis. The re is no central canal stenosis. IMPRESSION: 1. No significant cervical spondylosis with no central canal or neural foraminal stenosis. Reviewed, dictated and finalized at location A. IMPRESSION: 1. No significant cervical spondylosis with no central canal or neural foramina l stenosis.
--- OUTSIDE RECORDS SUMMARY | 2025-03-03 10:18 | XMS_ITS | Referral Summary ---
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 Norma Kevin [...] GTT 6 weeks [] Referral to [facility] Medicine clinic - number provided today [...] Never 11/27/2022 How often do you attend methodist or cheondoism serv ices? Never 11/27/2022 Do you belong to any clubs o r organizations such as methodist groups, unions, fraternal or athletic groups, or [...] medical care, and heating? Somewhat hard 11/27/2022 [facility] of Occupat ional Health - Occupational Stress [...] in a chcf (including now)? 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 Not on file Not [...] 9:21 AM CDT Height 161.9 cm (5' 3.74 ) 05/29/2023 9:21 AM CD T Body Mass Index 43.68 05/29/2023 9:21 AM CDT Plan of Treatment Not on file Procedures Procedure Name Priority Date/Time Associated Diagnosis Comments RUIZ VISUAL FIELD - OU - BOTH EYES Routine 12/31/2024 8:14 AM VETERINARY MICROBIOLOGIST 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 OCT, OPTIC NERVE - OU - BOTH EYES Routine 12/31/2024 7:48 AM VETERINARY MICROBIOLOGIST 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 PAP WITH REFLEX TO HIGH RISK HPV Routine 12/12/2022 4:18 PM VETERINARY MICROBIOLOGIST , unspecified gestational age HEPATITIS C ANTIBODY Routine 11/27/2022 12:22 PM VETERINARY MICROBIOLOGIST care, antepartum from Last 3 Months or Most Recently Relevant to Health Maintenance Results * Ruiz Visual Field - OU - Both Eyes (12/31/2024 8:14 AM VETERINARY MICROBIOLOGIST) Pattern Deviation OS 1.30 dB CONTINUUM Pattern Deviation OD 16.32 dB CONTINUUM Mean Deviation OS -0.22 dB CONTINUUM Mean Deviation OD -15.52 dB CONTINUUM Anatomical Region Laterality Modality Head Other Narrative 12/31/2024 5:32 PM VETERINARY MICROBIOLOGIST Right Eye Fixation was good. Cooperation was [...] OU - Both Eyes (12/31/2024 7:48 AM VETERINARY MICROBIOLOGIST) RNFL OS 110 micrometers CONTINUUM RNFL OD 66 micrometers CONTINUUM Anatomical Region Laterality Modality Head Other Narrative 12/31/2024 5:32 PM VETERINARY MICROBIOLOGIST Right Eye Reliability was good. Temporal thickness [...] to High Risk HPV (12/12/2022 4:18 PM VETERINARY MICROBIOLOGIST) Thin prep (Pap test) 12/12/2022 4:18 PM VETERINARY MICROBIOLOGIST 12/12/2022 5:24 PM VETERINARY MICROBIOLOGIST Narrative PATHOLOGY [facility] - 12/16/2022 12:08 PM VETERINARY MICROBIOLOGIST EPIC results best viewed via link to PDF [facility] Aundrea Romo [facility] [place] [address] Note to Patients: This report may contain [...] Gender: F : 1995 (Age: 27) Address: [address] [place] [address] Hospital #: [id number] Service: UNKNOWN Location: Patient Type: [facility] SPECIMEN Taken: 12/12/2022 Received: 12/12/2022 Accessioned: [...] clinical information and biopsy results as indicated. [facility] Clinical Laboratory Improvement Amendments (CLIA) mandate that cytologic and histologic results be correlated for laboratory auditor/quality & improvement standards. FOR ALL HIGH-GRADE CASES [...] determined by the Surgical Pathology Department at [facility] as part of an ongoing quality control tester program and in compliance with federally mandated [...] determined by the Surgical Pathology Department of [facility]. It has not been cleared or approved by the U. S. Food and Drug Administration. Ariela Dias MD LAB CYTOLOGY ORDERABLES Final Result PATHOLOGY [facility] 3rd Floor [place], [place] [phone] * Hepatitis C antibody (11/27/2022 12:22 PM VETERINARY MICROBIOLOGIST) Hep C Ab Nonreactive Nonreactive [facility] Comment:Antibodies to HCV no t detected. Does NOT exclude the possibility of recent exposure to HCV. Current interpretive data was last revised on 22 Blood 11/27/2022 12:2 2 PM VETERINARY MICROBIOLOGIST 11/27/2022 2:06 PM VETERINARY MICROBIOLOGIST us Ariela Dias MD LAB MICROBIOLOGY - GENER AL ORDERABLES Final Result [facility] Department [place] [address] from Last 3 Months or Most Recently Relevant to Health Maintenance Insurance [facility] Advance Directives For more information, please contact: [phone] * Full Code (Latest Code Status on File) Date Activated Date Inactivated Comments 05/30/2023 10:01 AM 06/01/2023 5:11 PM * Full Code Date Activated Date Inactivated Comments 05/29/2023 9:25 AM 05/30/2023 10:01 AM Full CPR in c ase of cardiopulmonary arrest Care Teams Correctional Officer Sergeant Relationship Specialty Start Date End Date Leta Graff PA [address] [place] [address] PCP - General 03/13/20 Noram Kevin, TREVER [address] [place] [address] Primary Eye Care Provider Optometry 02/06/22
--- OUTSIDE RECORDS SUMMARY | 2025-03-03 10:18 | XMS_ITS | Clinical Summary ---
Author Organization [facility] Address [address] [place] [address] Care Team Providers Care Icu Rn Name Role Phone Leta Graff Primary Care Provi chilo Norma Kevin OD Unavailable [phone] Allergies No known active allergies Medications latanoprost [...] 12/31/2024 Assessment & Plan (12/31/2024 9:04 PM PURIFYING PLANT OPERATOR): 1st Visit Referred by Dr. Norma Kevin [...] 2hr GTT 6 weeks [] [facility] to 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, severe stage (Primary Dx) 12/31/2024 8:00 AM PURIFYING PLANT OPERATOR Imaging Exam [facility] [address] [place] [phone] 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 Never 11/27/2022 Do you belong to any clubs o r organizations such as jewish groups, unions, fraternal or athletic groups, or [...] medical care, and heating? Somewhat hard 11/27/2022 [facility] of Occupat ional Health - Occupational Stress [...] place to sleep or slept in a care home (including now)? 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 Not on file Not [...] ont Epidur al Livin g Complications:None Delivery Location:[place] 2022 Term 38w 3d 0h 39m 0h 31m/0h 08m 2.89 kg (6 lb 5.9 oz) F Vagina l Epidur al N Livin g 8 9 FERRE JUNIOR,G DIANE taylor, Jessie nam MD Complications:None Delivery Location:[facility] Main C ampus ([facility] 58LD) Last Filed Vital Signs Vital Sign [...] - BOTH EYES Routine 12/31/2024 8:14 AM PURIFYING PLANT OPERATOR 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 OCT, OPTIC NERVE - OU - BOTH EYES Routine 12/31/2024 7:48 AM PURIFYING PLANT OPERATOR 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 PAP WITH REFLEX TO HIGH RISK HPV Routine 12/12/2022 4:18 PM PURIFYING PLANT OPERATOR , unspecified gestational age HEPATITIS C ANTIBODY Routine 11/27/2022 12:22 PM PURIFYING PLANT OPERATOR care, antepartum from Last 3 Months or Most Recently Relevant to Health Maintenance Results * Ruiz Visual Field - OU - Both Eyes (12/31/2024 8:14 AM PURIFYING PLANT OPERATOR) Pattern Deviation OS 1.30 dB CONTINUUM Pattern Deviation OD 16.32 dB CONTINUUM Mean Deviation OS -0.22 dB CONTINUUM Mean Deviation OD -15.52 dB CONTINUUM Anatomical Region Laterality Modality Head Other Narrative 12/31/2024 5:32 PM PURIFYING PLANT OPERATOR Right Eye Fixation was good. Cooperation was [...] central sparing OS: wnl Cely Rubio MD [facility] VISUAL FIELD Final Result * OCT, Optic Nerve - OU - Both Eyes (12/31/2024 7:48 AM PURIFYING PLANT OPERATOR) RNFL OS 110 micrometers CONTINUUM RNFL OD 66 micrometers CONTINUUM Anatomical Region Laterality Modality Head Other Narrative 12/31/2024 5:32 PM PURIFYING PLANT OPERATOR Right Eye Reliability was good. Temporal thickness [...] to High Risk HPV (12/12/2022 4:18 PM PURIFYING PLANT OPERATOR) Thin prep (Pap test) 12/12/2022 4:18 PM PURIFYING PLANT OPERATOR 12/12/2022 5:24 PM PURIFYING PLANT OPERATOR Narrative PATHOLOGY [facility] - 12/16/2022 12:08 PM PURIFYING PLANT OPERATOR EPIC results best viewed via link to PDF [facility]undrea Romo Laboratory [place] [address] Note to Patients: This report may contain [...] Gender: Pj : 1995 (Age: 27) Address: [address] [place] [address] [facility] #: [id number] Service: UNKNOWN Location: Patient Type: [facility] SPECIMEN Taken: 12/12/2022 Received: 12/12/2022 Accessioned: 12/12/2022 [...] clinical information and biopsy results as indicated. [facility] Clinical Laboratory Improvement Amendments (CLIA) mandate that cytologic and histologic results be correlated for laboratory quality assurance qa lab analyst & improvement standards. FOR ALL HIGH-GRADE CASES [...] determined by the Surgical Pathology Department at [facility] as part of an ongoing food quality technician program and in compliance with federally [...] determined by the Surgical Pathology Department of [facility]. It has not been cleared or approved by the U. S. Food and Drug Administration. us Ariela Dias MD LAB CYTOLOGY ORDERABLES Final Result PATHOLOGY [facility] 3rd Floor [place], [place] [phone] * Hepatitis C antibody (11/27/2022 12:22 PM PURIFYING PLANT OPERATOR) Hep C Ab Nonreactive Nonreactive [facility] Comment:Antibodies to HCV no t detected. Does NOT exclude the possibility of recent exposure to HCV. Current interpretive data was last revised on 22 Blood 11/27/2022 12:2 2 PM PURIFYING PLANT OPERATOR 11/27/2022 2:06 PM PURIFYING PLANT OPERATOR us Ariela Dias MD LAB MICROBIOLOGY - GENER AL ORDERABLES Final Result Performing Organization Address City/State/[facility] Co de Phone Number [facility] Department [place] [address] from Last 3 Months or Most Recently Relevant to Health Maintenance Insurance [facility] Advance Directives For more information, please contact: [phone] * Full Code (Latest Code Status on File) Date Activated Date Inactivated Comments 05/30/2023 10:01 AM 06/01/2023 5:11 PM * Full Code Date Activated Date Inactivated Comments 05/29/2023 9:25 AM 05/30/2023 10:01 AM Full CPR in c ase of cardiopulmonary arrest Care Teams Icu Rn Relationship Specialty Start Date End Date Leta Graff PA [address] [place] [address] PCP - General 03/13/20 Norma Kevin OD [address] [place] [address] Primary Eye Care Provider Optometry 02/06/22
--- OUTSIDE RECORDS SUMMARY | 2025-03-03 10:19 | XMS_ITS | Clinical Summary ---
Author Organization [facility] Address [address] [facility] [place] [address] Care Team Providers Care Student Assistance Counselor Name Role Phone Keren Valentin Monty KATZ-STEAM HEATING INSTALLER Primary Care Provider + Source Comments [facility],non-owned Affiliates and Associated Physician Practices is amultiple site organization consisting of ambulatory clinics and hospital sitesin [place], [place], [place] and [place]. This disclosure is being madepursuant to the Care Everywhere program and may not contain all information available regarding this patient. Last updated 18.[facility] Allergies No known active allergies Medications * [...] 8:16 PM CDT Height 161.3 cm (5' 3.5 ) 07/11/2020 8:16 PM CDT Body Mass Index [...] Group B LEONOR 06/18/2020 8:16 AM CDT [facility] MICROBIOLOGY Microbiology MISCELLANEOUS SAMPLES / Unknown Collection / Unknown 06/14/2020 9:48 AM CDT 06/14/2020 9:53 AM CDT Latasha Tejada LANGUAGE ARTS TEACHER-STEAM HEATING INSTALLER LAB - MICROBIOLOGY ORDERA BLES Final Result [facility] [address] [place] [address], [facility] [phone] from Last 3 Months or Most Recently Relevant to Health Maintenance Insurance [facility] [place] [address] Advance Directives * Full Code (Latest Code Status on File) Date Activated Date Inactivated Comments 07/11/2020 8:45 PM 07/14/2020 3:14 PM Care Teams Student Assistance Counselor Relationship Specialty Start Date End Date Keren Valentin, STERLING-STEAM HEATING INSTALLER [address] [address] PCP - General Nurse Practitioner 03/04/13
--- NOTE | 2025-03-03 10:47 | ED.GENADULT ---
HPI - General Adult General Chief complaint: Headache Stated complaint: [place] Palsy, R side of face numb since yesterday Time Seen by Provider: 03/03/25 10:14 History of Present Illness HPI narrative: Angelita Felix is a 29 year female with reports of being here yesterday for right-sided facial numbness improves and it had CTA of head and neck, labs done and was treated for migraine and is going to be admitted to get an MRI however she did not have school child care attendant ready so she had to sign out against medical advice. She prefers she back to hopefully be admitted for that MRI. She states that 2 weeks ago she started to have some twitching to her lips she related distress her right eye then started to have twitching and then 5 days ago started to have numbness and weakness to the right side of her face. She states that since she went home she was trying to do dishes and she felt like she was starting to have some weakness to her right hand was dropping dishes with her right hand. She complains 10 as had headache and she states that she has had bilateral blurry vision since this all started 5 days ago. Related Data Allergies Allergy/AdvReac Type Severity Reaction Status Date / Time No Known Allergies Allergy Verified 03/02/25 10:27 [facility] Past Medical History Medical History Healthy female adult Surgical History Surgical History No history of previous surgery Exam Narrative: GENERAL: Well-appearing, well-nourished, and in no acute distress. HEAD: Normocephalic, atraumatic. EYES: PERRLA and EOMI. ENT: Nares clear, no rhinorrhea or epistaxis. Mucous membranes moist. Oropharynx without tonsillar hypertrophy exudate or other lesions. NECK: Supple. No adenopathy or masses. No carotid bruits or JVD CHEST: Clear to auscultation. No respiratory distress. No wheezes rales or rhonchi HEART: Regular rate and rhythm. No murmur heard. Normal peripheral pulses. ABDOMEN: Soft, nontender, nondistended, normal active bowel sounds. EXTREMITIES: Normal range of motion. No edema. SKIN: Warm, dry, no rash. NEURO: Alert and oriented x3. + right sided facial asymmetry, hand oracle database architect equal and strong PSYCH: Normal mood and affect. Course Vital Signs Vital signs: Vital Signs Temperature 36.3 C L 03/03/25 09:43 Pulse Rate 89 03/03/25 09:43 Respiratory Rate 18 03/03/25 09:43 Blood Pressure 138/87 03/03/25 09:43 Pulse Oximetry 100 03/03/25 09:43 Oxygen Delivery Room Air 03/03/25 09:43 Temperature 36.3 C L 03/03/25 09:43 Pulse Rate 80 03/03/25 12:45 Respiratory Rate 17 03/03/25 12:45 Blood Pressure 120/74 03/03/25 12:45 Pulse Oximetry 100 03/03/25 12:45 Oxygen Delivery Room Air 03/03/25 09:43 Medical Decision Making MDM Narrative Medical decision making narrative: 29-year-old who presents with the right-sided facial weakness tingling to her lips often on migraine and now right hand weakness has been going on for about 5 days. She was seen here yesterday and had CT scan of her brain CT angio head and neck which were cleared urology was going to be admitting for consult and MRI here however patient had to sign out AMA related to school child care attendant. She presents back today with continued symptoms states that she feels like maybe her right hand is getting a little bit weaker she was dropping her dishes when she was trying to wash dishes last night. I repeated lab work and treated her migraine Cbc-unremarkable CMP unremarkable UA-unremarkable UDS-negative Consulted with Neurology Dr. Ryan here who accepts admission for MRI and Neurology workup Consulted with Hospitalist Maddison Rivera who accepts pt for Observation admission Patient re-evaluated before admission this states that her headache is gone and feeling better she still has the weakness symptoms she is updated on her results and plan to be admitted for Neurology and MRI she is agreeable to this plan and all questions. Medical Records Medical records reviewed: Yes I reviewed the external patient's medical records. Vital Signs Vital Signs: Vital Signs Temperature 36.3 C L 03/03/25 09:43 Pulse Rate 89 03/03/25 09:43 Respiratory Rate 18 03/03/25 09:43 Blood Pressure 138/87 03/03/25 09:43 Pulse Oximetry 100 03/03/25 09:43 Oxygen Delivery Room Air 03/03/25 09:43 Temperature 36.3 C L 03/03/25 09:43 Pulse Rate 80 03/03/25 12:45 Respiratory Rate 17 03/03/25 12:45 Blood Pressure 120/74 03/03/25 12:45 Pulse Oximetry 100 03/03/25 12:45 Oxygen Delivery Room Air 03/03/25 09:43 VItals reviewed by me Lab Data Lab results reviewed: Yes I reviewed the patient's lab results. 03/03/25 11:14 03/03/25 11:14 Labs: Lab Results 03/03/25 Range/Units 11:14 WBC 7.5 (4.5-10.0) K/mm3 RBC 4.21 (4.2-5.4) M/mm3 Hgb 12.9 (12.0-15.0) g/dL Hct 39.2 (37.0-47.0) % MCV 93.1 (80-100) fl MCH 30.6 (26-34) pg MCHC 32.9 (32-36) g/dl RDW 12.0 (11.5-14.5) % Plt Count 369 (150-375) k/mm3 MPV 10.5 H (7.4-10.4) fl Immature Gran % (Auto) 0.5 (0-0.5) % Neut % (Auto) 56.0 (45.5-73.1) % Lymph % (Auto) 35.6 (18.3-44.2) % [place] % (Auto) 6.3 (2.6-8.5) % Eos % (Auto) 1.1 (0-4.4) % Baso % (Auto) 0.5 (0.2-1.2) % Lymph # (Auto) 2.67 (0.9-3.2) K/mm3 [place] # (Auto) 0.5 (0.1-0.6) K/mm3 Eos # (Auto) 0.1 (0-0.3) K/mm3 Baso # (Auto) 0.0 (0.0-0.1) K/mm3 Abs Immat Gran (auto) 0.04 H (0.00-0.031) K/mm3 Absolute Neuts (auto) 4.2 (1.3-6.7) K/mm3 Absolute Nucleated RBC 0.000 (0.0-0.012) K/mm3 Nucleated RBC % 0.0 (0.0-0.2) % Sodium 137 (137-145) mmol/L Potassium 3.8 (3.4-5.0) mmol/L Chloride 105 (98-107) mmol/L Carbon Dioxide 24 (22-30) mmol/L Anion Gap 8 (4-12) mmol/L BUN 12 (7-17) mg/dL Creatinine 0.54 L (0.7-1.0) mg/dL Estim Creat Clear Calc 166 ml/min Estimated GFR > 60 (59 - ) Glucose 99 (65-110) mg/dL Calcium 8.7 (8.4-10.2) mg/dL Total Bilirubin 0.3 (0.2-1.3) mg/dL AST 28 (14-36) U/L ALT 32 (6-35) U/L Alkaline Phosphatase 103 (38-126) U/L Total Protein 7.0 (6.3-8.2) g/dL Albumin 4.0 (3.5-5.1) g/dL Urine Color Yellow (Yellow) Urine Appearance Clear (Clear) Urine pH 6.0 (5.0-9.0) Ur Specific [place] 1.014 (1.001-1.035) Urine Protein Negative (Negative) mg/dL Urine Glucose (UA) Negative (Negative) mg/dL Urine Ketones Negative (Negative) mg/dL Ur Blood (Man) Negative (Negative) Urine Nitrate Negative (Negative) Urine Bilirubin Negative (Negative) Urine Urobilinogen 0.2 (<2.0) mg/dL Leukocyte Esterase Rfl Negative (Negative) VERENICE/UL Urine Opiates Screen Negative (Negative) Urine Methadone Screen Negative (Negative) Ur Barbiturates Screen Negative (Negative) Ur Phencyclidine Scrn Negative (Negative) Ur Amphetamine Screen Negative (Negative) U Benzodiazepines Scrn Negative (Negative) Urine Cocaine Screen Negative (Negative) U Cannabinoids Screen Negative (Negative) Discharge Plan Discharge Clinical Impression: Facial droop, Weakness Migraine Qualifiers: Migraine type: unspecified Status migrainosus presence: without status migrainosus Intractability: intractable Qualified Code(s): G43.919 - Migraine, unspecified, intractable, without status migrainosus Patient Disposition: Still a Patient Condition: Stable Patient Language: Khmer Follow-up/Referrals: UNKNOWN,DOCTOR [Primary Care Provider] -
[2025-03-03] MEDS: SODIUM CHLORIDE 0.9% IV 1,000 ML 999 ML IV CONT (11:14)
[2025-03-03] MEDS: KETOROLAC 30 MG/ML VIAL (*BKC) IV PUSH (11:15)
[2025-03-03] MEDS: PROCHLORPERAZINE EDISYLATE 10 MG/2 ML VIAL IV PUSH (11:15)
[2025-03-03] MEDS: diphenhydrAMINE HCl INJ 50 MG/ML VIAL 25 MG IV PUSH (11:15)
--- OUTSIDE RECORDS SUMMARY | 2025-03-03 11:24 | XMS_ITS | Data Portability ---
Author Organization LUKE JAILENEJessi Oliva Address [address] [place] [address] Care Team Providers Care Estimating Engineer Name Role Phone GIA BRADLEY Primary Care Provider [phone] Assessment Encounter Date Assessment Date Assessment LastModified [...] [facility], [address], [address], [place], [address], 07:12:53 HbA1c (hemoglobi n A1c), blood 2021 022 [facility], 2022 [address], [address], [place], [address], 07:12:51 CMP, serum or plasma 2021 022 [facility], 20[address], [address], [place], [address], 2 07:12:47 CBC w/ auto diff 2021 [facility], 2022 [address], [address], [place], [address], 2 07:12:46 vitamin D, 25-hydroxy , total, serum 2021 [facility], 2022 [address], [address], [place], [address], 2 07:12:52 lipid panel, serum 2021 [facility], 2022 [address], [address], [place], [address], 2 07:12:50 urinalysis , complete 2021 [facility], 2022 [address], [address], [place], [address], 2 07:12:49 Referral orthopedic referral - Possible right distal fibula fracture - waiting on OSH xray reports, w/o crutches or splint 2020 [facility], [address] [facility], [place], [address], 15:32:51 Procedures None recorded. Surgeries None recorded. Imaging XR, lumbosacra l spine, 2 or 3 view 2021 [facility] ([facility]), [address] [place], [address], 2 15:07:04 Medication Orders fluoxetine 40 mg capsule 2021 [facility] #[id number], [address], [place], [id number], 10:48:03 cyclobenza leydi 10 mg tablet 2021 [facility] #20612, [address], [place], [id number], 13:22:55 fluoxetine 20 mg tablet [address] [facility]25459, [address], [place], [id number], 10:48:01 amoxicilli n 875 mg tablet 2021 [facility] #21016, [address], [place], [id number], 11:58:11 dextrometh orphan-gua ifenesin 10 mg-100 mg/5 mL oral syrup 2021 [facility] #51423, [address], [place], [id number], 11:58:37 diclofenac sodium 75 mg tablet,del ayed release 2021 [facility] #72099, [address], [place], [id number], 12:40:52 fluoxetine 20 mg capsule 2021 022 [facility] #60359, [address], [place], [id number], 12:41:02 tramadol 50 mg tablet [address] [facility]48808, [address], [place], [id number], 09:30:45 ibuprofen 800 mg tablet 2020 021 [facility] #85313, [address] [place], [id number], 09:43:08 Patient TargetsNo targets recorded. Patient Instructions Encounter Date Encounter Id Patient Instructions Last Modified By Organization Details Last Modified Time 03/20/2022 [id number] learning about control: the patch Not available 03/20/2022 10:46:27 learning about control: combination pills Not available 03/20/2022 10:46:27 learning about control: the ring Not available 03/20/2022 10:46:27 learning about control: the shot Not available 03/20/2022 10:46:27 learning about control: intrauterine device (iud) Not available 03/20/2022 10:46:27 A healthy lifestyle: care instructions Not available 03/20/2022 10:45:16 07/07/2022 [id number] A healthy lifestyle: care instructions Not available 07/07/2022 14:20:35 07/21/2022 [id number] A healthy lifestyle: care instructions Not available 07/21/2022 10:47:19 Reason for Referral Orthopedic Referral for Frac ture of ankle Possible right distal fibula fracture - waiting on OSH xray reports, w/o crutches or splint Referring Physician: Gia Bradley, Interactive Web Developer, Encounter Date: 03/03/2021 Results Created Date Observation Date Name Description Value Unit Range Abnormal Flag Note LastModifiedBy Organization Detail LastModifiedTime 03/20/20 22 03/21/2022 CBC WITH DIFFE RENTI AL/PL ATELE T WBC 11.6 x10e3 /uL 3.4-10 .8 above high normal Not Available [facility] ([facility]) [address] [facility] [place], [place], [address], 03/21/2022 07:12:46 03/20/20 22 03/21/2022 CBC WITH DIFFE RENTI AL/PL ATELE T RBC 4.96 x10e6 /uL 3.77-5 .28 Not Available [facility] ([facility]) [address] [place], [address], 03/21/2022 07:12:46 03/20/20 22 03/21/2022 CBC WITH DIFFE RENTI AL/PL ATELE T hemoglobin 15.1 g/dL 11.1-1 5.9 Not Available [facility] ([facility]) [address] [place], [address], 03/21/2022 07:12:46 03/20/2003/21/2022 CBC WITH DIFFE RENTI AL/PL ATELE T hematocrit 46.8 % 34.0-4 6.6 above high normal Not Available [facility] ([facility]) [address] [place], [address], 03/21/2022 07:12:46 03/20/20 22 03/21/2022 CBC WITH DIFFE RENTI AL/PL ATELE T MCV 94 fL 79-97 Not Available [facility] ([facility]) [address] [place], [address], 03/21/2022 07:12:46 03/20/20 22 03/21/2022 CBC WITH DIFFE RENTI AL/PL ATELE T MCH 30.4 pg 26.6-3 3.0 Not Available [facility] ([facility]) [address] [place], [address], 03/21/2022 07:12:46 03/20/20 22 03/21/2022 CBC WITH DIFFE RENTI AL/PL ATELE T MCHC 32.3 g/dL 31.5-3 5.7 Not Available [facility] ([facility]) [address] [place], [address], 03/21/2022 07:12:46 03/20/20 22 03/21/2022 CBC WITH DIFFE RENTI AL/PL ATELE T RDW 12.4 % 11.7-1 5.4 Not Available [facility] ([facility]) [address] [facility] [place], [place], [address], 03/21/2022 07:12:46 03/20/20 22 03/21/2022 CBC WITH DIFFE RENTI AL/PL ATELE T platelets 372 x10e3 /uL 150-45 0 Not Available [facility] ([facility]) [address] [facility] [place], [place], [address], 03/21/2022 07:12:46 03/20/20 22 03/21/2022 CBC WITH DIFFE RENTI AL/PL ATELE T neutrophils 61 % not estab. Not Available [facility] ([facility]) [address] [facility] [place], [place], [address], 03/21/2022 07:12:46 03/20/20 22 03/21/2022 CBC WITH DIFFE RENTI AL/PL ATELE T lymphs 30 % not estab. Not Available [facility] ([facility]) [address] [place], [address], 03/21/2022 07:12:46 03/20/20 22 03/21/2022 CBC WITH DIFFE RENTI AL/PL ATELE T monocytes 7 % not estab. Not Available [facility] ([facility]) [address] [place], [address], 03/21/2022 07:12:46 03/20/20 22 03/21/2022 CBC WITH DIFFE RENTI AL/PL ATELE T eos 1 % not estab. Not Available [facility] ([facility]) [address] [place], [address], 03/21/2022 07:12:46 03/20/20 22 03/21/2022 CBC WITH DIFFE RENTI AL/PL ATELE T basos 0 % not estab. Not Available [facility] ([facility]) [address] [place], [address], 03/21/2022 07:12:46 03/20/20 22 03/21/2022 CBC WITH DIFFE RENTI AL/PL ATELE T immature cells APPLIANCE SERVICE SUPERVISOR Not Available [facility] ([facility]) [address] [place], [address], 03/21/2022 07:12:46 03/20/20 22 03/21/2022 CBC WITH DIFFE RENTI AL/PL ATELE T neutrophils (absolute) 7.1 x10e3 /uL 1.4-7. 0 above high normal Not Available [facility] ([facility]) [address] [place], [address], 03/21/2022 07:12:46 03/20/20 22 03/21/2022 CBC WITH DIFFE RENTI AL/PL ATELE T lymphs (absolute) 3.5 x10e3 /uL 0.7-3. 1 above high normal Not Available [facility] ([facility]) [address] [place], [address], 03/21/2022 07:12:46 03/20/20 22 03/21/2022 CBC WITH DIFFE RENTI AL/PL ATELE T monocytes(ab solute) 0.8 x10e3 /uL 0.1-0. 9 Not Available [facility] ([facility]) [address] [place], [address], 03/21/2022 07:12:46 03/20/20 22 03/21/2022 CBC WITH DIFFE RENTI AL/PL ATELE T eos (absolute) 0.1 x10e3 /uL 0.0-0. 4 Not Available [facility] ([facility]) [address] [place], [address], 03/21/2022 07:12:46 03/20/20 22 03/21/2022 CBC WITH DIFFE RENTI AL/PL ATELE T baso (absolute) 0.0 x10e3 /uL 0.0-0. 2 Not Available [facility] ([facility]) [address] [facility] [place], [address], 03/21/2022 07:12:46 03/20/20 22 03/21/2022 CBC WITH DIFFE RENTI AL/PL ATELE T immature granulocytes 1 % not estab. Not Available [facility] ([facility]) [address] [facility] [place], [place], [address], 03/21/2022 07:12:46 03/20/20 22 03/21/2022 CBC WITH DIFFE RENTI AL/PL ATELE T immature grans (abs) 0.1 x10e3 /uL 0.0-0. 1 Not Available [facility] ([facility]) [address] [facility] [place], [place], [address], 03/21/2022 07:12:46 03/20/20 22 03/21/2022 CBC WITH DIFFE RENTI AL/PL ATELE T NRBC APPLIANCE SERVICE SUPERVISOR Not Available [facility] ([facility]) [address] [facility] [place], [place], [address], 03/21/2022 07:12:46 03/20/20 22 03/21/2022 CBC WITH DIFFE RENTI AL/PL ATELE T hematology comments: APPLIANCE SERVICE SUPERVISOR Not Available [facility] ([facility]) [address] [place], [address], 03/21/2022 07:12:46 03/20/20 22 03/21/2022 COMP. METAB OLIC PANEL (14) glucose 103 mg/dL 65-99 above high normal Not Available [facility] ([facility]) [address] [place], [address], 03/21/2022 07:12:47 03/20/20 22 03/21/2022 COMP. METAB OLIC PANEL (14) BUN 11 mg/dL 6-20 Not Available [facility] ([facility]) [address] [place], [address], 03/21/2022 07:12:47 03/20/20 22 03/21/2022 COMP. METAB OLIC PANEL (14) creatinine 0.67 mg/dL 0.57-1 .00 Not Available [facility] ([facility]) [address] [place], [address], 03/21/2022 07:12:47 03/20/20 22 03/21/2022 COMP. METAB OLIC PANEL (14) eGFR 125 mL/mi n/1.7 3 >59 Not Available [facility] ([facility]) [address] [facility] [place], [address], 03/21/2022 07:12:47 03/20/20 22 03/21/2022 COMP. METAB OLIC PANEL (14) BUN/creatini ne ratio 16 9-23 Not Available [facility] ([facility]) [address] [facility] [place], [address], 03/21/2022 07:12:47 03/20/20 22 03/21/2022 COMP. METAB OLIC PANEL (14) sodium 141 mmol/ L 134-14 4 Not Available [facility] ([facility]) [address] [facility] [place], [address], 03/21/2022 07:12:47 03/20/20 22 03/21/2022 COMP. METAB OLIC PANEL (14) potassium 4.6 mmol/ L 3.5-5. 2 Not Available [facility] ([facility]) [address] [facility] [place], [address], 03/21/2022 07:12:47 03/20/20 22 03/21/2022 COMP. METAB OLIC PANEL (14) chloride 106 mmol/ L 96-106 Not Available [facility] ([facility]) [address] [facility] [place], [address], 03/21/2022 07:12:47 03/20/20 22 03/21/2022 COMP. METAB OLIC PANEL (14) carbon dioxide, total 16 mmol/ L 20-29 below low normal Not Available [facility] ([facility]) [address] [facility] [place], [place], [address], 03/21/2022 07:12:47 03/20/20 22 03/21/2022 COMP. METAB OLIC PANEL (14) calcium 9.6 mg/dL 8.7-10 .2 Not Available [facility] ([facility]) [address] [facility] [place], [place], [address], 03/21/2022 07:12:47 03/20/20 22 03/21/2022 COMP. METAB OLIC PANEL (14) protein, total 7.5 g/dL 6.0-8. 5 Not Available [facility] ([facility]) [address] [facility] [place], [place], [address], 03/21/2022 07:12:47 03/20/20 22 03/21/2022 COMP. METAB OLIC PANEL (14) albumin 4.4 g/dL 3.9-5. 0 Not Available [facility] ([facility]) [address] [facility] [place], [place], [address], 03/21/2022 07:12:47 03/20/20 22 03/21/2022 COMP. METAB OLIC PANEL (14) globulin, total 3.1 g/dL 1.5-4. 5 Not Available [facility] ([facility]) [address] [facility] [place], [place], [address], 03/21/2022 07:12:47 03/20/20 22 03/21/2022 COMP. METAB OLIC PANEL (14) A/G ratio 1.4 1.2-2. 2 Not Available [facility] ([facility]) [address] [facility] [place], [place], [address], 03/21/2022 07:12:47 03/20/20 22 03/21/2022 COMP. METAB OLIC PANEL (14) bilirubin, total <0.2 mg/dL 0.0-1. 2 Not Available [facility] ([facility]) [address] [place], [address], 03/21/2022 07:12:47 03/20/20 22 03/21/2022 COMP. METAB OLIC PANEL (14) alkaline phosphatase 121 IU/L 44-121 Not Available [facility] ([facility]) [address] [facility] [place], [place], [address], 03/21/2022 07:12:47 03/20/20 22 03/21/2022 COMP. METAB OLIC PANEL (14) AST (SGOT) 21 IU/L 0-40 Not Available [facility] ([facility]) [address] [facility] [place], [place], [address], 03/21/2022 07:12:47 03/20/20 22 03/21/2022 COMP. METAB OLIC PANEL (14) ALT (SGPT) 18 IU/L 0-32 Not Available [facility] ([facility]) [address] [place], [address], 03/21/2022 07:12:47 03/20/20 22 03/21/2022 URINA LYSIS , COMPL ETE specific gravity 1.027 1.005- 1.030 Not Available [facility] ([facility]) [address] [place], [address], 03/21/2022 07:12:48 03/20/20 22 03/21/2022 URINA LYSIS , COMPL ETE pH 5.5 5.0-7. 5 Not Available [facility] ([facility]) [address] [place], [address], 03/21/2022 07:12:48 03/20/20 22 03/21/2022 URINA LYSIS , COMPL ETE urine-color Yellow yellow Not Available [facility] ([facility]) [address] [place], [address], 03/21/2022 07:12:48 03/20/20 22 03/21/2022 URINA LYSIS , COMPL ETE appearance Clear clear Not Available [facility] ([facility]) [address] [facility] [place], [place], [address], 03/21/2022 07:12:48 03/20/20 22 03/21/2022 URINA LYSIS , COMPL ETE WBC esterase Negati ve negati ve Not Available [facility] ([facility]) [address] [facility] [place], [place], [address], 03/21/2022 07:12:48 03/20/20 22 03/21/2022 URINA LYSIS , COMPL ETE protein Negati ve negati ve/tra ce Not Available [facility] ([facility]) [address] [facility] [place], [place], [address], 03/21/2022 07:12:48 03/20/20 22 03/21/2022 URINA LYSIS , COMPL ETE glucose Negati ve negati ve Not Available [facility] ([facility]) [address] [facility] [place], [place], [address], 03/21/2022 07:12:48 03/20/20 22 03/21/2022 URINA LYSIS , COMPL ETE ketones Negati ve negati ve Not Available [facility] ([facility]) [address] [place], [address], 03/21/2022 07:12:48 03/20/20 22 03/21/2022 URINA LYSIS , COMPL ETE occult blood Negati ve negati ve Not Available [facility] ([facility]) [address] [place], [address], 03/21/2022 07:12:48 03/20/20 22 03/21/2022 URINA LYSIS , COMPL ETE bilirubin Negati ve negati ve Not Available [facility] ([facility]) [address] [facility] [place], [place], [address], 03/21/2022 07:12:48 03/20/20 22 03/21/2022 URINA LYSIS , COMPL ETE urobilinogen ,semi-qn 0.2 mg/dL 0.2-1. 0 Not Available [facility] ([facility]) [address] [facility] [place], [place], [address], 03/21/2022 07:12:48 03/20/20 22 03/21/2022 URINA LYSIS , COMPL ETE nitrite, urine Negati ve negati ve Not Available [facility] ([facility]) [address] [facility] [place], [place], [address], 03/21/2022 07:12:48 03/20/20 22 03/21/2022 URINA LYSIS , COMPL ETE microscopic examination Commen t Micro scopi c follo ws if indic ated. Not Available [facility] ([facility]) [address] [facility] [place], [place], [address], 03/21/2022 07:12:48 03/20/20 22 03/21/2022 URINA LYSIS , COMPL ETE microscopic examination See below: Micro scopi c was indic ated and was perfo rmed. Not Available [facility] ([facility]) [address] [facility] [place], [place], [address], 03/21/2022 07:12:48 03/20/20 22 03/21/2022 URINA LYSIS , COMPL ETE WBC None seen /hpf 0 - 5 Not Available [facility] ([facility]) [address] [facility] [place], [place], [address], 03/21/2022 07:12:48 03/20/20 22 03/21/2022 URINA LYSIS , COMPL ETE RBC None seen /hpf 0 - 2 Not Available [facility] ([facility]) [address] [facility] [place], [place], [address], 03/21/2022 07:12:48 03/20/20 22 03/21/2022 URINA LYSIS , COMPL ETE epithelial cells (non renal) 0-10 /hpf 0 - 10 Not Available [facility] ([facility]) [address] [facility] [place], [place], [address], 03/21/2022 07:12:48 03/20/20 22 03/21/2022 URINA LYSIS , COMPL ETE epithelial cells (renal) APPLIANCE SERVICE SUPERVISOR Not Available [facility] ([facility]) [address] [facility] [place], [place], [address], 03/21/2022 07:12:48 03/20/20 22 03/21/2022 URINA LYSIS , COMPL ETE casts None seen /lpf none seen Not Available [facility] ([facility]) [address] [facility] [place], [place], [address], 03/21/2022 07:12:48 03/20/20 22 03/21/2022 URINA LYSIS , COMPL ETE cast type APPLIANCE SERVICE SUPERVISOR Not Available [facility] ([facility]) [address] [facility] [place], [place], [address], 03/21/2022 07:12:48 03/20/20 22 03/21/2022 URINA LYSIS , COMPL ETE crystals APPLIANCE SERVICE SUPERVISOR Not Available [facility] ([facility]) [address] [facility] [place], [place], [address], 03/21/2022 07:12:48 03/20/20 22 03/21/2022 URINA LYSIS , COMPL ETE crystal type APPLIANCE SERVICE SUPERVISOR Not Available [facility] ([facility]) [address] [facility] [place], [place], [address], 03/21/2022 07:12:48 03/20/20 22 03/21/2022 URINA LYSIS , COMPL ETE mucus threads APPLIANCE SERVICE SUPERVISOR Not Available [facility] ([facility]) [address] [facility] [place], [place], [address], 03/21/2022 07:12:48 03/20/20 22 03/21/2022 URINA LYSIS , COMPL ETE bacteria Few none seen/f ew Not Available [facility] ([facility]) [address] [facility] [place], [place], [address], 03/21/2022 07:12:48 03/20/20 22 03/21/2022 URINA LYSIS , COMPL ETE yeast APPLIANCE SERVICE SUPERVISOR Not Available [facility] ([facility]) [address] [facility] [place], [place], [address], 03/21/2022 07:12:48 03/20/20 22 03/21/2022 URINA LYSIS , COMPL ETE trichomonas APPLIANCE SERVICE SUPERVISOR Not Available [facility] ([facility]) [address] [place], [address], 03/21/2022 07:12:48 03/20/20 22 03/21/2022 URINA LYSIS , COMPL ETE comment APPLIANCE SERVICE SUPERVISOR Not Available [facility] ([facility]) [address] [place], [address], 03/21/2022 07:12:48 03/20/20 22 03/21/2022 LIPID PANEL cholesterol, total 159 mg/dL 100-19 9 Not Available [facility] ([facility]) [address] [place], [address], 03/21/2022 07:12:50 03/20/20 22 03/21/2022 LIPID PANEL triglyceride s 105 mg/dL 0-149 Not Available [facility] ([facility]) [address] [place], [address], 03/21/2022 07:12:50 03/20/20 22 03/21/2022 LIPID PANEL HDL cholesterol 45 mg/dL >39 Not Available [facility] ([facility]) [address] [place], [address], 03/21/2022 07:12:50 03/20/20 22 03/21/2022 LIPID PANEL VLDL cholesterol jazmin 19 mg/dL 5-40 Not Available [facility] ([facility]) [address] [place], [address], 03/21/2022 07:12:50 03/20/20 22 03/21/2022 LIPID PANEL LDL chol calc ([facility]) 95 mg/dL 0-99 Not Available [facility] ([facility]) [address] [place], [address], 03/21/2022 07:12:50 03/20/20 22 03/21/2022 LIPID PANEL comment: APPLIANCE SERVICE SUPERVISOR Not Available [facility] ([facility]) [address] [facility] [place], [place], [address], 03/21/2022 07:12:50 03/20/20 22 03/21/2022 HEMOG LOBIN A1C hemoglobin A1C 5.9 % 4.8-5. 6 above high normal Predi abete s: 5.7 - 6.4 Diabe jj: >6.4 Glyce amy contr ol for adult s with diabe jj: <7.0 Not Available [facility] ([facility]) [address] [place], [address], 03/21/2022 07:12:51 03/20/20 22 03/21/2022 VITAM IN [...] 2010; 96(7) :1911 -30. Not Available [facility] ([facility]) [address] [facility] [place], [place], [address], 03/21/2022 07:12:52 03/20/20 22 03/21/2022 TSH RFX ON ABNOR MAL TO FREE T4 TSH 1.360 uIU/m L 0.450- 4.500 Not Available [facility] ([facility]) [address] [facility] [place], [place], [address], 03/21/2022 07:12:53 07/21/20 22 07/21/2022 XR, lumbo sacra l spine , 2 or 3 view No observ ation record ed. [facility] [address] [place], [address], 07/27/2022 14:25:11 02/24/20 24 02/24/2024 CT, abdom en + pelvi s, w/ contr ast No observ ation record ed. [email or web address] [facility] [address] [place], [address], 02/28/2024 17:18:51 02/25/20 24 02/25/2024 US, abdom en No observ ation record ed. [email or web address] [place], [address], 02/28/2024 17:19:25 Result Notes None recorded. Problems Name Problem SNOMED Code Status Onset Date Resolution Date Notes Provider Name and Address Organization Details Recorded Time Pregnanc y 03340128 Completed 201904/12/2020 Mushtaq stearns [place] - [facility] 0 10:07:47 Obesity 804418931 Completed Dana Francisco GANESH [place], [place] [facility] 0 12:15:13 Bacteria l vaginosi s in pregnanc y 06540409983 9109 Completed 2019 Dana MaryamGANESH [place], [place] [facility] 0 12:15:13 Bacteria l vaginosi s in pregnanc y 06909797045 9109 Completed 201911/17/2020 NELLIE SALDAÑA Attn: Accounting ,[address] [place], [address] , [place] [facility] 1 09:08:30 Abnormal progeste jimmy 015797948 Completed 2019 Dana [place] [facility] 0 12:15:13 Abnormal progeste jimmy 988587833 Active 2019 [place]ESH [place] [facility] 0 12:15:13 Herpes simplex type 2 infectio n 315351535 Completed 2019 [place] [facility] 0 12:15:13 Herpes simplex type 2 infectio n 407923223 Active 2019 Dana Francisco [place] [facility] 0 12:15:13 Subchori onic hematoma 108109614 Active 2019 resolved [place]GANESH [place] [facility] 0 12:15:13 Subchori onic hematoma 880473756 Completed 2019 resolved Dana [place] [facility] 0 12:15:13 Depressi ve disorder 59924006 Completed Dana Francisco [place] [facility] 0 12:15:13 Hypereme sis gravidar 16595591 Completed 2019 Dana [place] [facility] 0 12:15:13 Hypereme sis gravidar um 85253739 Active 2019 Dana [place] [facility] 0 12:15:13 Syncope 826513887 Active 2019 Followin g with Cardiolo gy, likely vagal response but plan for echo and 24 hour holter monitor. NELLIE SALDAÑA Attn: Accounting ,[address] [facility], [place], [address] , [place] [facility] 0 16:14:28 Glucose toleranc e test outside referenc e range 606969637 Active 2019 Dana Francisco [place], [place] [facility] 0 12:15:13 Glucose toleranc e test outside referenc e range 371425200 Completed 2019 Dana [place] [facility] 0 12:15:13 Gestatio nal diabetes mellitus 30931883 Completed 2019 Dana [place] [facility] 0 12:15:13 Gestatio nal diabetes mellitus 10328316 Active 2019 Dana [place] [facility] 0 12:15:13 Impaired glucose toleranc e 2657254 Active 2021 NELLIE SALDAÑA Attn: Accounting ,[address] [facility], [place], [place], [address] [place] [address] , [place] - [facility] 2 08:27:08 Vitamin D deficien cy 95499309 Active 2021 ENLLIE SALDAÑA Attn: Accounting ,[address] [facility], [place], [place], [address] [place] [address] , [place] [facility] 2 08:27:10 Knee pain Active Joe Marmolejo null[place] [facility] 6 13:14:28 Obesity 115270693 Active Dana Francisco [place], [place] [facility] 0 12:15:13 Glaucoma 34321233 Active Joe [place]jo [place] [facility] 6 13:14:28 Depressi ve disorder 67260650 Active Dana Francisco [place] [facility] 0 12:15:13 Missed period [id number] Completed 12/07/2019 NELLIE KING Attn: Accounting ,[address] [facility], [place], [address] , [facility] 0 16:33:07 Infestat ion by biting lice [id number] Completed 201512/07/2019 NELLIE KING Attn: Accounting ,[address] [facility], [place], [address] , [facility] 0 16:33:04 Problem Notes None recorded. Procedures Surgical History Date Name Laterality Status Provider Name and Address Organization Details Recorded Time 2 Control Implant Removal completed NELLIE SALDAÑA Attn: Accounting,[address] [facility], [place], [address], [facility] 07/21/2022 13:21:17 0 Control Implant Insertion completed Mushtaq Honey [place] - [place] 08/23/2020 17:56:58 0 I&D completed NELLIE KING Attn: Accounting,[address] [facility], [place], [address], [facility] 12/07/2019 16:37:54 0 Date of Last Pap Smear completed Soledad Antoine MA [place] - [place] 03/15/2020 12:45:36 9 Control Implant Removal completed NELLIE SALDAÑA Attn: Accounting,[address] [facility], [place], [address], [facility] 08/05/2019 15:32:59 6 Control Implant Removal completed Soledad Antoine MA [place] - [facility] 11/25/2015 15:18:32 Imaging Results Imaging Date Name Status LastModified by Organiz ation Details LastModified Time 07/21/2022 XR, lumbosacral spine, 2 or 3 view completed [facility] [address] [place], [address], 07/27/2022 14:25:11 02/24/2024 CT, abdomen + pelvis, w/ contrast completed [email or web address] [facility] [address] [place], [address], 02/28/2024 17:18:51 02/25/2024 US, abdomen completed [facility] [address] [place], [address], 02/28/2024 17:19:25 Procedure Notes None recorded. Medical [...] Updated DateTime 1 162.56 cm 42.5 kg/m2 950299. 12 g 95 /min 98.7 [degF] 98 % 98 % 102 mm[Hg] 72 mm[Hg] Darline Fontana MA [facility] 1 12:32:42 Date Recorded Body height Body mass index (BMI) Body weight Heart rate Body temperature Oxygen saturation Oxygen saturation in Arterial blood by Pulse oximetry Systolic blood pressure Diastolic blood pressure Provider Name and Address Organization Details Last Updated DateTime 2 162.56 cm 41.2 kg/m2 427718. 17 g 93 /min 98.7 [degF] 98 % 98 % 102 mm[Hg] 78 mm[Hg] Darline Fontana MA [place] - [facility] 2 09:55:03 Date Recorded Body height Body mass index (BMI) Body weight Heart rate Body temperature Oxygen saturation Oxygen saturation in Arterial blood by Pulse oximetry Systolic blood pressure Diastolic blood pressure Provider Name and Address Organization Details Last Updated DateTime 2 162.56 cm 41.1 kg/m2 261423. 38 g 81 /min 98.7 [degF] 98 % 98 % 120 mm[Hg] 78 mm[Hg] Darline Fontana MA [facility] 2 09:36:02 Date Recorded Body height Body mass index (BMI) Body weight Heart rate Body temperature Oxygen saturation Oxygen saturation in Arterial blood by Pulse oximetry Systolic blood pressure Diastolic blood pressure Provider Name and Address Organization Details Last Updated DateTime 2 162.56 cm 41.2 kg/m2 865469. 57 g 94 /min 98.7 [degF] 98 % 98 % 102 mm[Hg] 74 mm[Hg] Darline Fontana MA [place] - [facility] 2 12:40:19 Date Recorded Body height Body mass index (BMI) Body weight Heart rate Oxygen saturation Oxygen saturation in Arterial blood by Pulse oximetry Systolic blood pressure Diastolic blood pressure Provider Name and Address Organization Details Last Updated DateTime 2 162.56 cm 40 kg/m2 469805. 02 g 88 /min 98 % 98 % 122 mm[Hg] 78 mm[Hg] Nancy Carrera MA [place] - [facility] 2 10:09:46 Social History Question Answer Notes LastModified by Organizat ion Details LastModified Time Tobacco Smoking Status Former Smoker 12/03/19--pt is just taking a hit off someone else's every now and then Dacia Barbosa MA [facility], [place] - [facility] 12/03/2019 14:16:57 Do You Have An Advance Directive? No Information not available 11/25/2015 What Is Your Level Of Alcohol Consumption? None Information not available 03/24/2016 If You Are , What Was Your Level Of Alcohol Consumption Prior To ? None Information not available 03/24/2016 How Many Years Have You Consumed Alcohol? 0 Information not available 03/15/2020 Animal Exposure? No [email or web address] Information not available 03/24/2015 Do You Wear A Helmet When Biking? No [email or web address] Information not available 03/24/2015 Is Blood Transfusion Acceptable In An Emergency? Yes Information not available 11/25/2015 Are You Or Have You Been Involved With Bullying? No [email or web address] Information not available 03/24/2015 What Is Your Level Of Caffeine Consumption? None [email or web address] Information not available 03/24/2015 Live With Cats/exposure To Cat Litter Yes Pt States Brother Has Cat,she Stated That She Changes Litter Box, Explained To Pt That She Needs To Have Someone Else Take Care Of Litter Box Information not available 03/24/2016 How Much Tobacco Do You Chew? None Information not available 11/25/2015 What Type Of Water Pipe Installer Do You Use? None [email or web address] Information not available 03/24/2015 Are You Currently Employed? No Information not available 11/25/2015 What Type Of Diet Are You Following? REGULAR [email or web address] Information not available 03/24/2015 Which Illicit Or [...] To Your Family Or Social Situation? No [email or web address] Information not available 03/24/2015 What Is The Fluoride Status Of Your Home? Unknown [email or web address] Information not available 03/24/2015 Frequent Air Travel No Information not available 03/24/2016 Are There Any Guns Present In Your Home? No Information not available 03/24/2015 What Is Your Home Situation? Father [email or web address] Information not available 03/24/2015 Illicit Drugs Pre- No Information not available 03/15/2020 Do You Use Insect Repellent Routinely? No Information not available 03/24/2015 Live Alone Or With Others? With Others Information not available 11/25/2015 Car Seat Type Or Seat Belt? Seat Belt [email or web address] Information not available 03/24/2015 Riding In Car Front Seat? Yes [email or web address] Information not available 03/24/2015 Marital Status Single Informatio n not available 03/15/2020 What Was The Date Of Your Most Recent Tobacco Screening? 07/21/2022 Information not available 07/21/2022 How Many Children Do You Have? 0 Information not available 11/25/2015 Are There Any Occupational Health Risks Where You Work? No Information not available 03/15/2020 What Is Your Parents' Marital Status? [email or web address] Information not available 03/24/2015 Performs Monthly Self-breast Exam? Yes Information not available 11/25/2015 Pool Exposure Yes [email or web address] Information not available 03/24/2015 Do You Use Protection During Sex? No Information not available 11/25/2015 What Is Your Relationship Status? Domestic Partner Information not available 11/25/2015 What Is The Name Of Your School? [employer] [email or web address] Information not available 03/24/2015 Seat Belts Used Routinely No Information not available 11/25/2015 Are You Sexually Active? Yes Information not available 11/25/2015 Do You Have Any Siblings? 1 [email or web address] Information not available 03/24/2015 Do You Have Smoke And Carbon Monoxide Detectors In Your Home? Yes [email or web address] Information not available 03/24/2015 At What Age [...] 11/25/2015 Do You Use Sunscreen Routinely? No Information not available 03/24/2015 [email or web address] Informatio n not available 03/24/2016 On What Date Was Tobacco Cessation Counseling Provided? 07/21/2022 Information not available 07/21/2022 How Many Years Have You Smoked Tobacco? 8 Information not available 12/03/2019 Year In School 12 [email or web address] Informatio n not available 03/24/2015 Sex: Unknown [...] N Blood Diseases N Hyperthyroidism N Blood disorders N Blood Transfusion N MRSA N Emphysema N Depression N COPD N Blood Clots N Pneumonia N Premature N Peripheral Arterial Disease N Edema N TIA N Headaches/Migraines N Anxiety Disorder N Obesity N Polyps N Infertility N Acid Reflux (GERD) N Hematuria N [...] Disorder N Colon Polyps N Heart Attack (DE) N Diabetes N Cardiomyopathy N Blood Transfusions [...] virus, trivalent, preservative 6 completed Not Available [facility] 11/15/2019 02:32:29 Influenza, split virus, quadrivalent, preservative 0 completed Not Available [facility] 11/15/2019 02:39:15 Tdap 0 completed Dana Francisco MA [facility], [place] - [facility] 04/15/2020 15:41:50 Tdap 7 completed Not Available [facility] 12/05/2022 07:53:40 Tdap 6 completed Not Available [facility] 12/05/2022 07:53:40 meningococcal ACWY, unspecified formulation 4 completed Not Available [facility] 12/05/2022 07:53:40 Hep A, unspecified formulation 4 completed Not Available [facility] 12/05/2022 07:53:40 Hep B, unspecified formulation 7 completed Not Available [facility] 12/05/2022 07:53:40 Hep B, unspecified formulation 7 completed Not Available [facility] 12/05/2022 07:53:40 Hep B, unspecified formulation 8 completed Not Available [facility] 12/05/2022 07:53:40 MMR 2 completed Not Available [facility] 12/05/2022 07:53:40 MMR 2 completed Not Available [facility] 12/05/2022 07:53:40 polio, unspecified formulation 7 completed Not Available [facility] 12/05/2022 07:53:40 polio, unspecified formulation 7 completed Not Available [facility] 12/05/2022 07:53:40 polio, unspecified formulation 2 completed Not Available [facility] 12/05/2022 07:53:40 Hib, unspecified formulation 7 completed Not Available [facility] 12/05/2022 07:53:40 Hib, unspecified formulation 7 completed Not Available [facility] 12/05/2022 07:53:40 Hib, unspecified formulation 8 completed Not Available [facility] 12/05/2022 07:53:40 Hib, unspecified formulation 2 completed Not Available [facility] 12/05/2022 07:53:40 DTaP, unspecified formulation 7 completed Not Available [facility] 12/05/2022 07:53:40 DTaP, unspecified formulation 7 completed Not Available [facility] 12/05/2022 07:53:40 DTaP, unspecified formulation 8 completed Not Available [facility] 12/05/2022 07:53:40 DTaP, unspecified formulation 2 completed Not Available [facility] 12/05/2022 07:53:40 varicella 7 completed Not Available [facility] 12/05/2022 07:53:40 varicella 4 completed Not Available [facility] 12/05/2022 07:53:40 influenza, unspecified formulation 4 completed Not Available [facility] 12/05/2022 07:53:40 influenza, unspecified formulation 6 completed Not Available [facility] 12/05/2022 07:53:40 influenza, unspecified formulation 6 completed Not Available [facility] 12/05/2022 07:53:40 Past Encounters Encounter ID Performer Location Encounter Start Date Encounter Closed Date Diagnosis/Indication Diagnosis SNOMED-CT Code Diagnosis ICD10 Code Diagnosis Note [id number] [facility] [address] [place] [address] [id number] 0 03/24/2015 15:16:22 03/24/2015 16:42:04 Knee pain 63698936 Obesity [id number] [facility] [address] [place] [address] [id number] 03/30/2015 13:57:56 03/30/2015 16:33:15 Well child [id number] Obesity 766456546 Knee pain 28067629 [id number] MD Brie Rowe (Peds) [address] [place] [address] [id number] 0 04/27/2015 11:46:22 04/27/2015 14:08:59 Obesity 951665919 Disorder o f patellofemoral joint [id number] MD Brie Escamilla (Adult Med) [address] [place] [address] [id number] 06/15/2015 13:53:13 06/15/2015 15:28:19 Obesity 851275601 Discussed not drinking her calories. She is currently drink 4 glasses of cranberry juice/day and a large sweet tea Goal is to lose 5lbs by the next time I see her Depressive disorder 95192533 Patient is currently sleeping until noon, waking [...] the one that she talked to from [facility] when they filed charges against her mother's [...] Her older brother is in the gang '[facility]' and she does not have a good relationsh ip with him anymore because he's into drugs. She states that at one point she was living with him and she was in [employer] and [employer] but since then has become very withdrawn. Her mother 2 years ago. Prior to her passing away, her mother had a boyfriend who shot and killed another person and then fled to [place] and left her children here to follow him. RTC in 4 weeks - if she does not want to follow with a counselor, i want to keep my eye on her. She states that she wants to get a job at a [employer] next to Mr. Cox. [id number] MD Brie Cox (TOWER OPERATOR) [address] [place] [address] [id number] 0 11/25/2015 14:43:09 11/26/2015 11:30:50 Subcutaneous contraceptive implant palpable 979542872 Z30.49 Nexplanon removed at patient request. [id number] MD Brie Rudolph (Adult Med) [address] [place] [address] [id number] 0 03/01/2016 14:01:05 03/01/2016 14:45:42 Missed period 78298677 N92.5 test positive 993319591 Z32.01 Discussed that she needs to get a job to start saving to take care of her child Will refer to OBGYN LMP: 01/20/16 EOC: 10/30/16 [id number] MD Brie Cox (TOWER OPERATOR) [address] [place] [address] [id number] 03/24/2016 11:35:48 03/24/2016 13:29:58 Routine care 794932148 Z34.91 Administra tion of influenza vaccine 67873339 Z23 [id number] MD Brie Alexander (Adult Med) [address] [place] [address] [id number] 0 09/04/2016 08:50:59 09/04/2016 09:47:45 Infestation by biting lice 962746887 B85.2 Advised to take all clothing and blankets to a laundromat for cleaing d/t high heat of the washers and dryers Advised to use a fine toothed comb daily to look for infestion f/u with your OBGYN - discussed that since she is all medication s need to come from [facility] [id number] NELLIE SALDAÑA (Adult Med) [address] [place] [address] [id number] 0 07/31/2019 08:19:35 08/03/2019 21:06:51 [id number] NELLIE SALDAÑA (Adult Med) [address] [place] [address] [id number] 08/05/2019 14:44:23 08/06/2019 08:52:30 Subcutaneous contraceptive implant palpable 859087060 Z30.46 Subcutaneo us implant palpated in the left upper arm sulcus between triceps and biceps Removal of subcutaneous contraceptive 293110342 Z30.46 Ready for nexplanon to be removed because it has been almost 3 years and is ready to try and conceive againNexpl anon removed today during visit, patient tolerated procedure well Trying to conceive 24261 9001 Z31.9 Nexplanon removed so she and her boyfriend can try and conceive- Started patient on vitamin- Provided her with hand-out regarding planning for Gastroesop hageal reflux disease without esophagitis 693860210 K21.9 She admits to sharp epigastric pain after eating meals that is improved with TUMS.- Will start on ranitidine twice a day, no interactio n with Dysuria 10017263 R30.9 Dysuria x 1 dayUrine dipstick normal during visit todayPatie nt performed the vaginal nuswab herself, will call her with results [id number] NELLIE SALDAÑA (Adult Med) [address] [place] [address] [id number] 0 11/10/2019 11:14:39 11/11/2019 12:20:47 Adult health examination 312823384 Z00.00 Presents today for a physical for [place] [facility] program. She needs influenza vaccine and 2-step TB test completed. On PE: vitals normal, no abnormalit ies on examVisual acuity: R eye corrected 20/15. L eye corrected 20/15.- Physical paperwork filled out, will return to patient after 2-step TB testing completed Active or passive immunization 599303962 Z23 Influenza vaccine completed today in the office Tuberculos is screening 377617169 Z11.1 1st PPD given today in the office, she is to return on 11/12/2019 after 11 am- Return to office 2 weeks later, 11/24/2019 for 2nd PPD Gastroesop hageal reflux disease without esophagitis 000189709 K21.9 Admits to continued sharp epigastric pain after eating meals, not improved with ranitidine - Will switch to trial of omeprazole Glaucoma 39647584 H40.9 Hx of glaucoma in the R eye.Follow s with ophthalmol ogy and takes latanopros t. Next appointmen t is 12/2019 [id number] NELLIE SALDAÑA (Adult Med) [address] [place] [address] [id number] 0 11/24/2019 11:36:37 11/25/2019 09:46:40 Tuberculosis screening 634673486 Z11.1 1st PPD given in the office on 11/10/2019, [email or web address] d PPD give in the office today, return in 2-3 days to have read test positive 507537696 Z32.01 Here today for testHad a positive test at an urgent care last weekLMP 10/12/19Pr egnancy test positive in the office today- Will get additional blood work- Will start on Ca + Vit. D supplement s, already taking pre- vitamins- Make NOB appointmen t upstairs [id number] NELLIE KING (TOWER OPERATOR) [address] [place] [address] [id number] 0 12/03/2019 13:51:17 12/03/2019 15:46:39 Routine care 808458001 Z34.91 Venereal d isease screening 694088319 Z11.3 screening 2437 44461 Z36.85 Abscess of vulva 5518789 1 N76.4 Will start empiric antibiotic . F/u culture. Wound care supplies provided to patient. Obesity 402118074 E66.9 [id number] NELLIE KING (TOWER OPERATOR) [address] [place] [address] [id number] 0 12/31/2019 14:43:44 01/05/2020 12:54:38 Routine care 293134805 Z34.91 Constipation 83217875 K5 9.00 Subchorionic hematoma 60 0575777 O41.8X99 F/u US. Continue ASA and progestero ne. Nausea and vomiting 1693 2000 R11.2 Start Zofran as prescribed . Dehydratio n precaution s discussed. Abnormal progesterone 13 8153985 R94.7 Continue progestero ne as prescribed . 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 Pt already started suppressiv e antiviral. Continue as prescribed . Depressive disorder 3548 9007 F32.9 Tearful today when discussing HSV results. H/o depression , no longer follows with counselor. PHQ9 was 04/24 today. Recommend counseling . Reassess at next HAL. [id number] [facility] [address] [place] [address] [id number] 0 01/28/2020 14:56:33 02/03/2020 09:32:20 Routine care 547218756 Z34.91 Routine care. US 01/22 with resolution of subchorion ic hematoma. Will repeat US around 20 weeks for anatomy. Pt reporting continued nausea and constipati on. Taking medication s with minor relief. No signs of dehydratio n on exam, good UOP, BP wnl, trace ketones. Reassess at next visit. Constipation 85180308 K5 9.00 Eat meals regularly. Reduce fast food. Increase fiber and water in diet. Start fiber supplement . Continue stool softeners. Hyperemesi s gravidarum 69716709 O21.0 Continue Zofran as prescribed . Can add in Reglan for nausea. Small meals every 1-2 hours. Trigger avoidance. Dehydratio n precaution s discussed. Abnormal progesterone 13 2013105 R94.7 Continue progestero ne as prescribed . Recheck levels today. screening 2437 04541 Z36.85 Depressive disorder 3548 9007 F32.9 Mood mildly improved. Recommend counseling . Reassess at next HAL. [id number] NELLIE KING [facility] (TOWER OPERATOR) [address] [place] [address] [id number] 0 02/26/2020 14:46:21 02/26/2020 15:44:29 Routine care 559930914 Z34.91 Routine care at 19w4d. Pt reporting [...] today. RTC in 4 weeks. screening 2437 32785 Z36.1 Abnormal progesterone 13 3765642 R94.7 Continue progestero ne as prescribed . Recheck levels today. Obesity 960628822 E66.9 Recommende d weight gain <15 pounds. Exercise at least 150 minutes per week. Maintain healthy diet. Hyperemesi s gravidarum 99755171 O21.0 Continue Zofran and Reglan as prescribed . Small meals every 1-2 hours. Trigger avoidance. Dehydratio n precaution s discussed. Glycosuria 42951877 R81 HgbA1c at initial visit 5.6. Postprandi al BG wnl. Will perform GCT at 26-28 weeks. [id number] MD Brie Alford [facility] (TOWER OPERATOR) [address] [place] [address] [id number] 0 03/15/2020 12:21:22 03/15/2020 13:15:54 Routine care 122065207 Z34.92 Syncope 083932929 R55 OFF WORK 03/15/20 Herpes sim plex type 2 infection 906550453 B00.9 Depressive disorder 6198 1207 F32.9 [id number] MD Brie Alford [facility] (TOWER OPERATOR) [address] [place] [address] [id number] 0 04/12/2020 09:54:54 04/13/2020 10:11:16 Routine care 904453679 Z34.92 screening 2437 32796 Z36.9 Herpes sim plex type 2 infection 365363871 B00.9 Syncope 503097983 R55 OFF WORK 03/15/20 Depressive disorder 3548 5198 F32.9 [id number] MD Brie Alford (TOWER OPERATOR) [address] [place] [address] [id number] 0 05/24/2020 16:01:16 05/25/2020 16:59:11 Routine care 382225919 Z34.83 Herpes sim plex type 2 infection 122140016 B00.9 Depressive disorder 3545 2852 F32.9 Gestationa l diabetes mellitus 74839496 O24.814 [id number] NELLIE KING (TOWER OPERATOR) [address] [place] [address] [id number] 06/07/2020 15:34:37 06/14/2020 09:28:58 Routine care 769232508 Z34.91 Routine care at 34w1d. c/b GDM, obesity, abnormal progestero ne, syncope, depressive disorder. No specific concerns today, denies contractio ns or LOF. + movement. Following with MFM for GDM. US earlier today with appropriat e growth (EFW 66%) and reassuring BPP 08/07. RTC in 2 weeks. Obesity 550992137 E66.9 Recommende d weight gain <15 pounds. Weight gain of 5 pounds thus far. Gestationa l diabetes mellitus 17762241 O24.414 Follows with MFM. Insulin controlled . Getting twice weekly testing. Growth assessment in 3-4 weeks. Continue management per MFM recs. Depressive disorder 0212 0384 F32.9 Mood improved. Recommend counseling . Reassess at next HAL. [id number] NELLIE KING (TOWER OPERATOR) [address] [place] [address] [id number] 0 06/22/2020 16:14:52 06/23/2020 13:10:06 Routine care 219356355 Z34.91 Routine care at 36w2d. c/b abnormal progestero ne, subchorion ic hematoma (resolved) , hyperemesi s, HSV2, gestationa l diabetes, depressive disorder, obesity. No specific concerns today, denies contractio ns or LOF. + movement. Fundal height appropriat e and FHT at 138 bpm. cervix 0/0%/-4. Following with MFM ([facility]) for GDM. Last US 06/14 with appropriat e growth and reassuring BPP. Patient missed her appt with MFM yesterday due to car troubles. Advised to follow up as soon as possible and that pt will be full transfer of care to for delivery. [place] contacted. GBS screening performed. Labs drawn. RTC in 1 week. screening 2437 78665 Z36.85 Venereal d isease screening 419597697 Z11.3 Gestationa l diabetes mellitus 27485263 O24.414 Follows with MFM. Insulin controlled . Getting twice weekly testing. Growth assessment in 2 weeks. Continue management per [facility] recs. Depressive disorder 3548 9007 F32.9 Mood improved. Reassess at next visit. Herpes sim plex type 2 infection 439187284 B00.9 Pt on suppressiv e antiviral. Continue as prescribed . Obesity 924113507 E66.9 [id number] [facility] ([facility] [address] [place] [address] [id number] 06/29/2020 15:21:13 06/29/2020 16:53:33 Routine care 018298327 Z34.83 Gestationa l diabetes mellitus 76146611 O24.419 Herpes sim plex type 2 infection 639136698 B00.9 Depressive disorder 3548 9007 F32.9 [id number] MD Brie Alford (TOWER OPERATOR) [address] [place] [address] [id number] 0 07/06/2020 16:26:31 07/08/2020 11:19:36 Depressive disorder 11407090 F32.9 Gestationa l diabetes mellitus 00863867 O24.414 Herpes sim plex type 2 infection 052134169 B00.9 Hyperemesi s gravidarum 55087399 O21.0 Obesity 869591318 E66.9 Subchorionic hematoma 60 6890259 O41.8X99 resolved Routine an tenatal care 645927413 Z34.83 [facility] nning surveillance 712716625 Z30.09 [id number] MD Brie Alford (TOWER OPERATOR) [address] [place] [address] 08866-924 0 08/23/2020 11:28:36 08/24/2020 09:13:24 care 246289253 Z39.2 [facility] nning surveillance 056309193 Z30.09 Implantati on of subcutaneous contraceptive [id number] Z30.9 [id number] NELLIE SALDAÑA (Adult Med) [address] [place] [phone] 0 11/17/2020 07:57:27 11/18/2020 09:10:22 Exposure to SARS-CoV-2 [id number] Z20.822 She has had exposure to someone [...] symptoms yet.- will send COVID test to [facility] due to symptoms and positive exposure- will [...] of such. Urinary tr act infectious disease 60902257 N39.0 Also complainin g of dysuria, urinary frequency, and voiding small amounts over the past 2 days. Admits to drinking more soda than normal and believes she has an UTI currently. - will send abx to pharmacy to cover for UTI- if symptoms do not improve, call office [id number] NELLIE SALDAÑA (Adult Med) [address] [place] [phone] 0 03/03/2021 12:19:21 03/05/2021 17:17:26 Fracture of ankle 63406242 S82.91XA Pt with fall 2 weeks ago [place], drunk- does not remember falling. Seen at [facility] ER in [place]. Was told she fractured something, given soft [...] - F/u with ortho- referral sent today [id number] NELLIE SALDAÑA (Adult Med) [address] [place] [phone] 0 03/20/2022 09:41:45 03/21/2022 08:57:33 Depressive disorder 86881303 F32.9 Patient feels like she's lashing out [...] us first- f/u in 1 month Adult [facility] th examination 890022118 Z00.00 Patient has not had labs drawn for a few years, will get them updated. - ordered CMP, CBC, Vit D, lipid panel, UA Contraception care 68335 0424 Z30.40 Patient has been on nexplanon since [...] and see how patient feels Morbid obesity 315099063 E66.01 BMI 41.2 today 03/20/22 - will check TSH and HgbA1C- provided patient with healthy lifestyle instructio ns Neck pain 83085504 M54.2 Left shoulder pain since August, no [...] of visit was regarding her depression ) [id number] NELLIE SALDAÑA (Adult Med) [address] [place] [address] 04/03/2022 09:17:26 04/04/2022 11:42:53 Acute sinusitis 69966400 J01.90 Complainin g of dark green sputum [...] known SE of hair loss with fluoxetine [id number] NELLIE SALDAÑA (Adult Med) [address] [place] [address] 07/07/2022 11:55:47 07/11/2022 08:44:43 Depressive disorder 13862045 F32.9 Was started on fluoxetine 20 mg [...] with fluoxetine Strain of left trapezius muscle [id number] 8666924 S29.012A Left shoulder pain since August, no [...] at night, stretching to help Contraception care 9897787 2090 Z30.40 Patient has been on nexplanon since [...] Schedule f/u visit for removal Morbid obesity 302133058 E66.01 BMI 41.2 today 03/20/22Adv ised decreased portion sizes, good food choices, limited eating out or fast food and eliminate soda and juice from diet. Advised physical activity daily and offered encouragem ent to continue with positive changes made so far. [id number] NELLIE SALDAÑA (Adult Med) [address] [place] [address] 07/21/2022 09:55:59 07/25/2022 09:57:00 Depressive disorder 42783945 F32.9 Started back on fluoxetine last week [...] increase to 40 mg daily Morbid obesity 381217994 E66.01 BMI 41.2 today 03/20/22Adv ised decreased portion sizes, good food choices, limited eating out or fast food and eliminate soda and juice from diet. Advised physical activity daily and offered encouragem ent to continue with positive changes made so far. Removal of subcutaneous contraceptive 628612513 Z30.46 Here today for removal of nexplanonB [...] avoid if sexually active Low back pain 872348547 M54.50 At last visit, was complainin g [...] Prather Member ID Guarantor Name 03/03/2021 1 [facility] PRIOR TO 04/28/2021 (MEDICAID REPLACEMENT - HMO) Angelita Camila [id number] Angelita Camila 03/20/2022 1 [facility] ON OR AFTER 04/28/21 (MEDICAID REPLACEMENT - HMO) Angelita Camila [id number] Angelita Camila 04/03/2022 1 [facility] ON OR AFTER 04/28/21 (MEDICAID REPLACEMENT - HMO) Angelita Camila [id number] Angelita Camila 07/07/2022 1 [facility] ON OR AFTER 04/28/21 (MEDICAID REPLACEMENT - HMO) Angelita Camila [id number] Angelita Camila 07/21/2022 1 [facility] ON OR AFTER 04/28/21 (MEDICAID REPLACEMENT - HMO) Angelita Camila [id number] Angelita Camila Notes Date Note Type Note Provider Name and Address Organization Details Recorded Time 03/03/2021 text/html Pt is a 25 y/o female who presents today for right ankle pain s/p fall 2 weeks ago. She was at the [facility] when she fell down stairs. States she was drunk and does not remember falling or how she fell. Went to [facility] in [place] to ER the next told. Was told [...] SALDAÑA Attn: [address] , [place], [address], [facility] 03/03/2021 13:41:02 03/20/2022 text/html Angelita is a [...] SALDAÑA Attn: [address] , [place], [address], [facility] 03/20/2022 22:49:44 04/03/2022 text/html Angelita is a [...] sore throat. NELLIE SALDAÑA Attn: [address] [place], [address], [place] [facility] 04/03/2022 16:16:17 07/07/2022 text/html [...] SALDAÑA Attn: [address] , [place], [address], [facility] 07/07/2022 14:20:58 07/21/2022 text/html Angelita is a [...] SALDAÑA Attn: [address] , [place], [address], [facility] 07/21/2022 13:24:20 OBGyn Episode Ob Episode Information Episode Created Date Number of Fetuses Patient Bloodtype Patient rh Status Prepregnancy Weight lbs Domestic Partner Domestic Partner Phone Father Name Client Insights Consultant Status 12/03/19 20 1 O Positive 240 CLOSED Fetus Data First Name Last Name Admitted to NICU Weight (g) Sex Living Outcome Pediatric Complications Fetus ID Race Codes Race Delivery Type Kranthi Daugherty false 3458.63 9 M Full Term 26434 2106-3 White Vaginal Problems Problem Notes yes to epidural, unsure abou t circumcision, combo feeding, 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 [facility], PPBC undecided - baby boy, name undecided Problem Name Start Date End Date Resolution Snomed Code Not e Gestational diabetes mellitus 05/24/2020 50820916 Glucose tolerance test outside reference range 04/14/2020 780325065 Subchorionic hematoma 12/31/2019 4565059 04 resolved Abnormal progesterone 12/12/2019 3522473 00 Obesity 395372468 Bacterial vaginosis in 12/10/2019 632246774387986 Herpes simplex type 2 infection 12/12/2019 996402087 Depressive disorder 09123338 Hyperemesis gravidarum 02/26/2020 103891 01 Tom Calculation Initial Tom Date Initial [...] Weight in lbs Pre/Post Dialysis Refused Weight 243.384875608928 BP Diastolic BP Location Tested BP Systolic [...] Weight in lbs Pre/Post Dialysis Refused Weight 241.048982049687 BP Diastolic BP Location Tested BP Systolic [...] Weight in lbs Pre/Post Dialysis Refused Weight 238.96223579418 BP Diastolic BP Location Tested BP Systolic [...] Weight in lbs Pre/Post Dialysis Refused Weight 237.311459738122 BP Diastolic BP Location Tested BP Systolic [...] in lbs Pre/Post Dialysis Refused With clothes 238.624516107253 BP Diastolic BP Location Tested BP Systolic [...] in lbs Pre/Post Dialysis Refused With clothes 243.489577487492 BP Diastolic BP Location Tested BP Systolic BP Type 62 112 sitting Fetus Heart Rate Present A 143 Present Fetus Movement A Yes Comments gtt/tdap/us Flowsheet Date 05/24/2020 Whitaker Score Blood Edema Fundus Height Fundus Units Glucose Ketones Leukocytes Nitrite Labor Signs Protein Cervic Dilation Cervic Effacement Cervic Station Type Weight in lbs Pre/Post Dialysis Refused With clothes 245.611037192216 BP Diastolic BP Location Tested BP Systolic BP Type 62 110 sitting Fetus Heart Rate Present Fetus Movement Comments Flowsheet Date 06/07/2020 Whitaker Score Blood Edema Fundus Height Fundus Units Glucose Ketones Leukocytes Nitrite Labor Signs Protein Cervic Dilation Cervic Effacement Cervic Station neg none 34 cm none trace none trace Type Weight in lbs Pre/Post Dialysis Refused Weight 245.772733123557 BP Diastolic BP Location Tested BP Systolic [...] Weight in lbs Pre/Post Dialysis Refused Weight 248.357583359058 BP Diastolic BP Location Tested BP Systolic [...] be full transfer of care for delivery. [place] contacted. GBS screening performed. Labs drawn. RTC in 1 week. Flowsheet Date 06/29/2020 Whitaker Score Blood Edema Fundus Height Fundus Units Glucose Ketones Leukocytes Nitrite Labor Signs Protein Cervic Dilation Cervic Effacement Cervic Station neg none 37 cm none negative none neg 1cm 50% - 3 Type Weight in lbs Pre/Post Dialysis Refused Weight 246.250326561891 BP Diastolic BP Location Tested BP Systolic [...] Weight in lbs Pre/Post Dialysis Refused Weight 249.753112150774 BP Diastolic BP Location Tested BP Systolic BP Type 68 108 sitting Fetus Heart Rate Present A 145 Present Fetus Movement A Yes Comments Following with MFM. [facility] at [facility]. RTC next week. Flowsheet Date 08/23/2020 Whitaker Score Blood Edema Fundus Height Fundus Units Glucose Ketones Leukocytes Nitrite Labor Signs Protein Cervic Dilation Cervic Effacement Cervic Station Type Weight in lbs Pre/Post Dialysis Refused With clothes 231.124934635582 BP Diastolic BP Location Tested BP Systolic [...] At Estimated Date of Delivery false Thalassemia (Hungarian, Indonesian, Mediterranean, Or Background): MCV < 80 false Neural Tube Defect (Meningom yelocele, Spina Bifida, Or Anencephaly) false Congenital Heart Defect false Down Syndrome false Henrique-Sachs (eg, Christian, Cajun, Citizen Of [place]) f alse Dwaine Disease false Sickle Cell Disease Or Trait () false Hemophilia Or Other Blood Disorders false Muscular Dystrophy false Cystic Fibrosis false Pennington's Chorea false Mental Retardation/Autism false If Yes, [...] violence [place] 12/03/2019 [place] [address] 12/03/2019 [facility] 12/03/2019 Nutrition counseling ; special diet; dietary precautions (mercury, listeriosis) [place] [address] 12/03/2019 Childbirth classes/h ospital facilities [place] [address] 12/03/2019 HIV and other routin e tests [place] [address] 12/03/2019 Risk factors identif ied by history [facility] 12/03/2019 Weight gain counseling [facility] 12/03/2019 Exercise [place] [address] 12/03/2019 Teratogens [place] [address] 12/03/2019 Use of any medicatio ns (including supplements, vitamins, herbs, or OTC drugs) [place] [address] 12/03/2019 03/15/2020 breas t and bottle feed, cb-rma [place] [address] 12/03/2019 Sexual activity [place] [address] 12/03/2019 Tobacco/smoking cess ation counseling (ask, advise, assess, assist, and arrange) [facility] 12/03/2019 Illicit/recreational drugs [facility] 12/03/2019 Dental care [place] [address] 12/03/2019 Travel [place] [address] 12/03/2019 Seat belt use [place] [address] 12/03/2019 Indications for ultrasonography [place] [address] 12/03/2019 Avoidance of saunas or hot tubs [place] [address] 12/03/2019 Toxoplasmosis precau tions (cats/raw meat) [email or web address] [...] 03/15/2020 yes to Epidural, cb-rma cbradshawma 06/22/2020 [place] education (n ewborn screening, jaundice, SIDS/safe sleeping [...] Domestic Partner Domestic Partner Phone Father Name Client Insights Consultant Status 03/24/20 16 1 O Positive 216 CLOSED Fetus Data First Name Last Name Admitted to NICU Weight (g) Sex Living Outcome Pediatric Complications Fetus ID Race Codes Race Delivery Type [id number] Tom Calculation Initial Tom Date Initial Exam [...] Type Weight in lbs Pre/Post Dialysis Refused 216.080035667316 BP Diastolic BP Location Tested BP Systolic BP Type 60 92 sitting Fetus Heart Rate Present A Absent Fetus Movement A No Comments Flowsheet Date 09/04/2016 Whitaker Score Blood Edema Fundus Height Fundus Units Glucose Ketones Leukocytes Nitrite Labor Signs Protein Cervic Dilation Cervic Effacement Cervic Station Type Weight in lbs Pre/Post Dialysis Refused 225.070079076188 BP Diastolic BP Location Tested BP Systolic [...]
--- OUTSIDE RECORDS SUMMARY | 2025-03-03 11:24 | XMS_ITS | Referral Summary ---
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 Norma Kevin [...] 2hr GTT 6 weeks [] Referral to [facility] Medicine clinic - number provided [...] Never 11/27/2022 How often do you attend tenriism or worship serv ices? Never 11/27/2022 Do you belong to any clubs o r organizations such as tenriism groups, unions, fraternal or athletic groups, or [...] medical care, and heating? Somewhat hard 11/27/2022 [facility] - [...] place to sleep or slept in a half-way (including now)? 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 PAP WITH REFLEX TO HIGH RISK HPV Routine 12/12/2022 4:18 PM FIELD TAX AUDITOR , unspecified gestational age HEPATITIS C ANTIBODY Routine 11/27/2022 12:22 PM FIELD TAX AUDITOR care, antepartum from Last 3 Months or Most Recently Relevant to Health Maintenance Results * Ruiz Visual Field - OU - Both Eyes (12/31/2024 8:14 AM FIELD TAX AUDITOR) Pattern Deviation OS 1.30 dB CONTINUUM Pattern Deviation OD 16.32 dB CONTINUUM Mean Deviation OS -0.22 dB CONTINUUM Mean Deviation OD -15.52 dB CONTINUUM Anatomical Region Laterality Modality Head Other Narrative 12/31/2024 5:32 PM FIELD TAX AUDITOR Right Eye Fixation was good. Cooperation was [...] OU - Both Eyes (12/31/2024 7:48 AM FIELD TAX AUDITOR) RNFL OS 110 micrometers CONTINUUM RNFL OD 66 micrometers CONTINUUM Anatomical Region Laterality Modality Head Other Narrative 12/31/2024 5:32 PM FIELD TAX AUDITOR Right Eye Reliability was good. Temporal thickness [...] to High Risk HPV (12/12/2022 4:18 PM FIELD TAX AUDITOR) Thin prep (Pap test) 12/12/2022 4:18 PM FIELD TAX AUDITOR 12/12/2022 5:24 PM FIELD TAX AUDITOR Narrative PATHOLOGY [facility] - 12/16/2022 12:08 PM FIELD TAX AUDITOR EPIC results best viewed via link to PDF [facility] [place] [address] Note to Patients: This report may contain [...] Gender: F : 1995 (Age: 27) Address: [address] [place] [address] Hospital #: [id number] Service: UNKNOWN Location: [facility]: [facility] [...] histologic results be correlated for laboratory quality inspector & improvement standards. FOR ALL HIGH-GRADE CASES [...] determined by the Surgical Pathology Department at [facility] as part of an ongoing design quality engineer program and in compliance with federally mandated [...] determined by the Surgical Pathology Department of [facility]. It has not been cleared or approved by the U. S. Food and Drug Administration. Ariela Dias MD LAB CYTOLOGY ORDERABLES Final Result PATHOLOGY [facility] [address]rd Floor [place], [place] [phone] * Hepatitis C antibody (11/27/2022 12:22 PM FIELD TAX AUDITOR) Hep C Ab Nonreactive Nonreactive [facility] Comment:Antibodies to HCV no t detected. Does NOT exclude the possibility of recent exposure to HCV. Current interpretive data was last revised on 22 Blood 11/27/2022 12:2 2 PM FIELD TAX AUDITOR 11/27/2022 2:06 PM FIELD TAX AUDITOR us Ariela Dias MD LAB MICROBIOLOGY - GENER AL ORDERABLES Final Result [facility] [place] [address] from Last 3 Months or Most Recently Relevant to Health Maintenance Insurance [facility] Advance Directives For more information, please contact: [phone] * Full Code (Latest Code Status on File) Date Activated Date Inactivated Comments 05/30/2023 10:01 AM 06/01/2023 5:11 PM * Full Code Date Activated Date Inactivated Comments 05/29/2023 9:25 AM 05/30/2023 10:01 AM Full CPR in c ase of cardiopulmonary arrest Care Teams Merchandise Supervisor Relationship Specialty Start Date End Date Leta Graff PA [address] [place] [address] PCP - General 03/13/20 Norma Kevin, TREVRE [address] [place] [address] Primary Eye Care Provider Optometry 02/06/22
--- OUTSIDE RECORDS SUMMARY | 2025-03-03 11:24 | XMS_ITS | Clinical Summary ---
Author Organization [facility] Address [address] [place] [address] Care Team Providers Care Coating Operator Name Role Phone Leta Graff Primary Care Provi chilo Norma Kevin OD Unavailable [phone] Allergies No known active allergies Medications latanoprost [...] 12/31/2024 Assessment & Plan (12/31/2024 9:04 PM AFRICAN HISTORY PROFESSOR): 1st Visit Referred by Dr. 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 Never 11/27/2022 Do you belong to any clubs o r organizations such as zoroastrianism groups, unions, fraternal or athletic groups, or [...] medical care, and heating? Somewhat hard 11/27/2022 [facility] [place] [facility] Occupat ional Health - Occupational Stress [...] place to sleep or slept in a intermediate (including now)? 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 Not on file Not [...] ont Epidur al Livin g Complications:None Delivery Location:[place] 2022 Term 38w 3d 0h 39m 0h 31m/0h 08m 2.89 kg (6 lb 5.9 oz) F Vagina l Epidur al N Livin g 8 9 FERRE JUNIOR,G DIANE taylor, Jessie nam MD Complications:None Delivery Location:[facility] Main C ampus ([facility] 58LD) Last Filed Vital Signs Vital [...] - BOTH EYES Routine 12/31/2024 8:14 AM AFRICAN HISTORY PROFESSOR 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 OCT, OPTIC NERVE - OU - BOTH EYES Routine 12/31/2024 7:48 AM AFRICAN HISTORY PROFESSOR 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 PAP WITH REFLEX TO HIGH RISK HPV Routine 12/12/2022 4:18 PM AFRICAN HISTORY PROFESSOR , unspecified gestational age HEPATITIS C ANTIBODY Routine 11/27/2022 12:22 PM AFRICAN HISTORY PROFESSOR care, antepartum from Last 3 Months or Most Recently Relevant to Health Maintenance Results * Ruiz Visual Field - OU - Both Eyes (12/31/2024 8:14 AM AFRICAN HISTORY PROFESSOR) Pattern Deviation OS 1.30 dB CONTINUUM Pattern Deviation OD 16.32 dB CONTINUUM Mean Deviation OS -0.22 dB CONTINUUM Mean Deviation OD -15.52 dB CONTINUUM Anatomical Region Laterality Modality Head Other Narrative 12/31/2024 5:32 PM AFRICAN HISTORY PROFESSOR Right Eye Fixation was good. Cooperation was [...] central sparing OS: wnl Cely Rubio MD [facility] VISUAL FIELD Final Result * OCT, Optic Nerve - OU - Both Eyes (12/31/2024 7:48 AM AFRICAN HISTORY PROFESSOR) RNFL OS 110 micrometers CONTINUUM RNFL OD 66 micrometers CONTINUUM Anatomical Region Laterality Modality Head Other Narrative 12/31/2024 5:32 PM AFRICAN HISTORY PROFESSOR Right Eye Reliability was good. Temporal thickness [...] to High Risk HPV (12/12/2022 4:18 PM AFRICAN HISTORY PROFESSOR) Thin prep (Pap test) 12/12/2022 4:18 PM AFRICAN HISTORY PROFESSOR 12/12/2022 5:24 PM AFRICAN HISTORY PROFESSOR Narrative PATHOLOGY [facility] - 12/16/2022 12:08 PM AFRICAN HISTORY PROFESSOR EPIC results best viewed via link to PDF [facility] Aundrea Romo [facility] [place] [address] Note to Patients: This report may contain [...] Gender: Pj : 1995 (Age: 27) Address: [address] [place] [address] [facility] #: [id number] Service: UNKNOWN Location: Patient Type: [facility] SPECIMEN Taken: 12/12/2022 Received: 12/12/2022 Accessioned: [...] clinical information and biopsy results as indicated. [facility] Clinical Laboratory Improvement Amendments (CLIA) mandate that cytologic and histologic results be correlated for laboratory air quality instrument specialist & improvement standards. FOR ALL HIGH-GRADE CASES [...] determined by the Surgical Pathology Department at [facility] as part of an ongoing training and quality manager program and in compliance with [...] determined by the Surgical Pathology Department of [facility]. It has not been cleared or approved by the U. S. Food and Drug Administration. us Ariela Dias MD LAB CYTOLOGY ORDERABLES Final Result PATHOLOGY [facility] 3rd Floor [place], [place] [phone] * Hepatitis C antibody (11/27/2022 12:22 PM AFRICAN HISTORY PROFESSOR) Hep C Ab Nonreactive Nonreactive [facility] Comment:Antibodies to HCV no t detected. Does NOT exclude the possibility of recent exposure to HCV. Current interpretive data was last revised on 22 Blood 11/27/2022 12:2 2 PM AFRICAN HISTORY PROFESSOR 11/27/2022 2:06 PM AFRICAN HISTORY PROFESSOR us Ariela Dias MD LAB MICROBIOLOGY - GENER AL ORDERABLES Final Result Performing Organization Address City/State/[facility] Co de Phone Number [facility] Department [place] [address] from Last 3 Months or Most Recently Relevant to Health Maintenance Insurance [facility] Advance Directives For more information, please contact: [phone] * Full Code (Latest Code Status on File) Date Activated Date Inactivated Comments 05/30/2023 10:01 AM 06/01/2023 5:11 PM * Full Code Date Activated Date Inactivated Comments 05/29/2023 9:25 AM 05/30/2023 10:01 AM Full CPR in c ase of cardiopulmonary arrest Care Teams Coating Operator Relationship Specialty Start Date End Date Leta Graff PA [address] [place] [address] PCP - General 03/13/20 Norma Kevin OD [address] [place] [address] Primary Eye Care Provider Optometry 02/06/22
--- OUTSIDE RECORDS SUMMARY | 2025-03-03 11:24 | XMS_ITS | Clinical Summary ---
Author Organization [facility] Address [address] [place] [address] Care Team Providers Care Field Support Representative Name Role Phone Keren Valentin Monty KATZ-POCKET SECRETARY ASSEMBLER Primary Care Provider + Source Comments [facility],non-owned Affiliates and Associated Physician Practices is amultiple site organization consisting of ambulatory clinics and hospital sitesin [place], [place], [place] and [place]. This disclosure is being madepursuant to the Care Everywhere program and may not contain all information available regarding this patient. Last updated 18.[facility] Allergies No known active allergies [...] B LEONOR 06/18/2020 8:16 AM CDT [facility] MICROBIOLOGY Microbiology MISCELLANEOUS SAMPLES / Unknown Collection / Unknown 06/14/2020 9:48 AM CDT 06/14/2020 9:53 AM CDT Latasha Tejada SURGICAL DEVICE SALES REPRESENTATIVE-POCKET SECRETARY ASSEMBLER LAB - MICROBIOLOGY ORDERA BLES Final Result [facility] [address] [place] [address], [facility] [phone] from Last 3 Months or Most Recently Relevant to Health Maintenance Insurance [facility] [place] [address] Advance Directives * Full Code (Latest Code Status on File) Date Activated Date Inactivated Comments 07/11/2020 8:45 PM 07/14/2020 3:14 PM Care Teams Field Support Representative Relationship Specialty Start Date End Date Keren Valentin, STERLING-POCKET SECRETARY ASSEMBLER [address] [address] PCP - General Nurse Practitioner 03/04/13
[2025-03-03 11:28] LABS: Basophils Percent Auto 0.5 % (0.2-1.2); Eosinophils Absolute Auto 0.1 K/mm3 (0-0.3); Eosinophils Percent Auto 1.1 % (0-4.4); Hematocrit 39.2 % (37.0-47.0); Hemoglobin 12.9 g/dL (12.0-15.0); Immature Granulocyte Absolute 0.04 K/mm3 (0.00-0.031); Immature Granulocyte Percent A 0.5 % (0-0.5); Lymphocytes Absolute Auto 2.67 K/mm3 (0.9-3.2); Lymphocytes Percent Auto 35.6 % (18.3-44.2); Mean Corpuscular HGB Conc 32.9 g/dl (32-36); Mean Corpuscular Hemoglobin 30.6 pg (26-34); Mean Corpuscular Volume 93.1 fl (80-100); Mean Platelet Volume 10.5 fl (7.4-10.4); Monocytes Absolute Auto 0.5 K/mm3 (0.1-0.6); Monocytes Percent Auto 6.3 % (2.6-8.5); Neutrophils Absolute Auto 4.2 K/mm3 (1.3-6.7); Platelet Count Result 369 k/mm3 (150-375); Red Blood Count 4.21 M/mm3 (4.2-5.4); White Blood Count 7.5 K/mm3 (4.5-10.0)
[2025-03-03 11:32] LABS: Add Urine Microscopic? NO; Appearance Urine Clear (Clear); Bilirubin Urine Negative (Negative); Blood Urine Negative (Negative); Color Urine Yellow (Yellow); Glucose Urine UA Negative (Negative); Ketones Urine Negative (Negative); Leukocyte Esterase Ur Negative LEU/UL (Negative); Nitrate Urine Negative (Negative); Protein Urine Negative (Negative); Specific Grav Ur 1.014 (1.001-1.035); Urobilinogen Urine 0.2 mg/dL (<2.0)
[2025-03-03 11:38] LABS: Alanine Aminotransferase 32 U/L (6-35); Alkaline Phosphatase 103 U/L (38-126); Anion Gap 8 mmol/L (4-12); Aspartate Amino Transferase 28 U/L (14-36); Bilirubin,Total 0.3 mg/dL (0.2-1.3); Blood Urea Nitrogen 12 mg/dL (7-17); Calcium 8.7 mg/dL (8.4-10.2); Carbon Dioxide 24 mmol/L (22-30); Chloride 105 mmol/L (98-107); Estimated CRCL calculation 166 ml/min; Estimated Glomerular Filt Rate > 60; Glucose 99 mg/dL (65-110); Potassium 3.8 mmol/L (3.4-5.0); Sodium 137 mmol/L (137-145)
[2025-03-03 11:49] LABS: Amphetamine Screen Urine Negative (Negative); Barbiturate Screen Urine Negative (Negative); Benzodiazepines Screen Urine Negative (Negative); Cannabinoid Screen Urine Negative (Negative); Cocaine Screen Urine Negative (Negative); Methadone Screen Urine Negative (Negative); Opiate Screen Urine Negative (Negative); Phencyclidine Screen Urine Negative (Negative)
--- NOTE | 2025-03-03 13:01 | ADMGEN ---
This patient, Angelita Felix, was admitted to -. Patient/family oriented to hospital policies and general routines including ID bracelet, bed and alarms, visiting hours, pain management, procedures, bathroom and other care routines, personal items, smoking policy, room service/diet, and visiting hours. Information on how to activate the Rapid Response Team has been discussed. Patient/Family are encouraged to report perceived risks to care and to ask questions if they do not understand what they are told or what they should do.
--- NOTE | 2025-03-03 13:20 | PM.IMHP ---
H&P: HPI History of Present Illness Date/Time: 03/03/25 13:20 Chief Complaint: Right-sided facial numbness Narrative: Angelita Felix is a 29 year female with complains of right-sided facial numbness and weakness associated headache and blurriness of vision that started since past . Patient complains of droopiness of face and spilling of food since then. Headache associated to orbital pain. Patient reported difficulty lifting her right eyebrow 0 and right lip. No prior history of migraine in the past. No weakness her arms or legs. This report yesterday she felt her and will occur and she was dropping her dishes. She denies any fever chills. No recent viral illnesses. No weakness in arms or legs. No complete loss of vision. 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 her vitals were stable. CT head was negative. Also underwent CTA head and neck which was unremarkable. Was recommended admission for MRI. However she left against medical advise. She presents back today with continued symptoms. She reports her hand is getting little bit weaker and has been dropping her dishes. Repeat labs unremarkable with normal CBC CMP urine drug screen negative. EKG within normal limit She is admitted for further treatment Review of Systems Review of Systems: - CONSTITUTIONAL: Denies weight loss, fever and chills. - HEENT: Reports blurriness of her right vision, denies hearing problem - RESPIRATORY: Denies SOB and cough. - CV: Denies palpitations and CP. - GI: Denies abdominal pain, nausea, vomiting and diarrhea. - : Denies dysuria and urinary frequency. - MSK: Denies myalgia and joint pain. - SKIN: Denies rash and pruritus. - NEUROLOGICAL: Reports headache and denies syncope. - PSYCHIATRIC: Denies recent changes in mood. Denies anxiety and depression. [facility] Past Medical History Medical History Healthy female adult Surgical History Surgical History No history of previous surgery Social History Social History Smoking status: Current every day smoker Tobacco type: e-cigarettes/vaping Alcohol intake: never Substance use: never Do You Feel Safe in your Home?: Yes Lack of Transportation: No Lack of Food: Never True Current Housing: I Have Housing Concerned About Future Housing: No Difficulty Paying Gas/Electric Bills: No Difficulty Paying for Meds: No Currently Unemployed: No Education: High School Diploma/GED Difficulty w/ Childcare or Family Care: No Spiritual care concerns: No Meds Home Medications and Allergies Home Medications ?Medication ?Instructions ?Recorded ?Confirmed ?Type No Home Medications 03/03/25 03/03/25 History Allergies Allergy/AdvReac Type Severity Reaction Status Date / Time No Known Allergies Allergy Verified 03/03/25 13:35 Vital Signs Vital Signs - 24 hr 03/03/25 09:43 03/03/25 12:06 03/03/25 12:45 Temperature 97.3 F L Pulse Rate 89 60 80 Respiratory Rate 18 18 17 Blood Pressure 138/87 120/63 120/74 Pulse Oximetry 100 100 100 Oxygen Delivery Room Air Exam Narrative: GENERAL: Well-appearing, well-nourished, and in no acute distress. HEAD: Normocephalic, atraumatic. EYES: PERRLA and EOMI. ENT: Nares clear, no rhinorrhea or epistaxis. NECK: Supple. No adenopathy or masses. No carotid bruits or JVD CHEST: Clear to auscultation. No respiratory distress. No wheezes rales or rhonchi HEART: Regular rate and rhythm. No murmur heard. Normal peripheral pulses. ABDOMEN: Soft, nontender, nondistended, normal active bowel sounds. EXTREMITIES: Normal range of motion. No edema. SKIN: Warm, dry, no rash. NEURO: Alert and oriented x3. + right sided facial asymmetry does not spare forehead, hand student ambassador equal and strong PSYCH: Normal mood and affect. H&P: Results Labs Labs: Short CBC 03/03/25 Range/Units 11:14 WBC 7.5 (4.5-10.0) K/mm3 Hgb 12.9 (12.0-15.0) g/dL Hct 39.2 (37.0-47.0) % Plt Count 369 (150-375) k/mm3 [facility] 03/03/25 11:14 Sodium 137 Potassium 3.8 Chloride 105 Carbon Dioxide 24 BUN 12 Creatinine 0.54 L Glucose 99 Calcium 8.7 Liver Function 03/03/25 Range/Units 11:14 Total Bilirubin 0.3 (0.2-1.3) mg/dL AST 28 (14-36) U/L ALT 32 (6-35) U/L Alkaline Phosphatase 103 (38-126) U/L Albumin 4.0 (3.5-5.1) g/dL Urine 03/03/25 Range/Units 11:14 Urine Color Yellow (Yellow) Urine Appearance Clear (Clear) Urine pH 6.0 (5.0-9.0) Ur Specific [place] 1.014 (1.001-1.035) Urine Protein Negative (Negative) mg/dL Urine Glucose (UA) Negative (Negative) mg/dL Assessment and Plan Assessment and plan (1) Facial droop: Code(s): R29.810 - Facial weakness Status: Acute (2) Migraine: Qualifiers: Intractability: intractable Migraine type: unspecified Status migrainosus presence: without status migrainosus Qualified Code(s): G43.919 - Migraine, unspecified, intractable, without status migrainosus Code(s): G43.909 - Migraine, unspecified, not intractable, without status migrainosus Status: Acute (3) Headache: Code(s): R51.9 - Headache, unspecified Status: Acute (4) Weakness: Code(s): R53.1 - Weakness Status: Acute Plan Angelita Felix is a 29 year female with complains of right-sided facial numbness, facial twitching and weakness with associated headache and blurriness of vision that started since past . Patient complains of droopiness of face and spilling of food since then. Headache associated to orbital pain. Patient reported difficulty lifting her right eyebrow 0 and right lip. No prior history of migraine in the past. No weakness her arms or legs. This report yesterday she felt her and will occur and she was dropping her dishes. She denies any fever chills. No recent viral illnesses. No weakness in arms or legs. No complete loss of vision. 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 her vitals were stable. CT head was negative. Also underwent CTA head and neck which was unremarkable. Was recommended admission for MRI. However she left against medical advise. She presents back today with continued symptoms. She reports her hand is getting little bit weaker and has been dropping her dishes. Repeat labs unremarkable with normal CBC CMP urine drug screen negative. EKG within normal limit She is admitted for further treatment Right facial nerve palsy however does have sensory symptoms might indicate some trigeminal involvement. Symptoms suggestive of right Miller's palsy. Will treat with steroid and valacyclovir. Check for Lyme disease. Also check ESR CRP and and testing. Family history is vague. Early demise of her mother due to unclear etiology and history of strokes? in the family Will get MRI brain to further evaluate Neurology has been consulted. Facial twitching: Check CK TSH ESR CRP SHAMEKA rheumatoid vitamin B12 Upper arm weakness? Will get cervical MRI Glaucoma right eye DVT prophylaxis SCDs Code status full code Hospitalist MIPS Advance Care Plan I have confirmed that the patient's Advanced Care Plan is present, code status is documented, or surrogate decision maker is listed in patient medical record.: Yes Medication Reconciliation I have utilized all available resources to obtain, update and review the patients current medications (includes all prescriptions, OTC, herbals, cannabis, and nutritional supplements).: Yes
[2025-03-03 13:57] LABS: CRP 0.9 mg/dL (<1.0)
[2025-03-03 14:11] LABS: Erythrocyte Sedimentation Rate 80 mm/hr (0-20)
[2025-03-03 15:02] LABS: Creatine Kinase 55 U/L (30-135)
[2025-03-03 15:06] LABS: Rheumatoid Factor < 12.0 IU/ML (<12)
[2025-03-03] MEDS: valACYclovir HCL 500 MG TABLET 1000 MG PO ×2 (15:23→20:57)
[2025-03-03] MEDS: predniSONE 20 MG TABLET 60 MG PO (15:23)
[2025-03-03 15:55] LABS: Thyroid Stimulating Hormone Reflex 0.678 uIU/mL (0.465-4.68)
[2025-03-03 16:10] LABS: Folic Acid 5.9 ng/mL (2.76->20)
[2025-03-04] VITALS (11 sets, daily range): BP systolic 121–130; BP diastolic 63–74; PULSE 57–88; RESP 16–18; TEMP 36.3–36.8; O2SAT 97–99
[2025-03-04] MEDS: valACYclovir HCL 500 MG TABLET 1000 MG PO ×3 (05:49→21:03)
[2025-03-04] MEDS: predniSONE 20 MG TABLET 60 MG PO (08:39)
--- NOTE | 2025-03-04 11:10 | WPDNEURCNPN ---
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 Right-sided facial abnormality observed by the patient the possibility of right-sided Miller's palsy with and MRI of the head is negative she will benefit from the spinal fluid studies to rule out the possibility of early demyelinating disease, and will suggest MRI of the thoracic spine as well to rule out the remote possibility of any incidental he to help in the diagnosis. Consult date: 03/04/25 HPI: Angelita Felix is a 29 year old femaleAdmitted to the hospital through the emergency room with complaints of right-sided facial numbness. About 2 weeks ago, she started having twitching in her lips old but twitchy in her right eye and subsequently about 5 days ago she noted numbness and weakness on the right side her face. She also complained of weakness in her right hand when she doing dishes and in fact had dropped addition from her right hand additionally complained of blurred vision and some headaches. She is not allergic to any medications. On initial examination she was found to have no focal neurological deficit. Her vital signs were normal, CBC was normal, BMP was normal, and the mass scan was normal along with the negative for drug screening. On her initial presentation on 03/[address] scan of the head was negative for the bleed, or any space-occupying lesion, she had come to the ER on March 02, 2025 and had left against medical advise, return to the ER on 03/03 again for the Symptomatology as mentioned above. Repeat CBC is normal, BMP is normal, blood sugar initially 118 repeat normal, UA negative for the drug screen as well, serology for Lyme , on her return visit today and subsequent admission MRI of the brain grossly negative as well as MRI of cervical spine is negative. Review of Systems Review of Systems: All systems reviewed & are unremarkable except as noted in HPI and below PMFSH Past Medical History Medical History Healthy female adult Surgical History Surgical History No history of previous surgery Social History Social History Smoking status: Current every day smoker Tobacco type: e-cigarettes/vaping Alcohol intake: never Substance use: never Do You Feel Safe in your Home?: Yes Lack of Transportation: No Lack of Food: Never True Current Housing: I Have Housing Concerned About Future Housing: No Difficulty Paying Gas/Electric Bills: No Difficulty Paying for Meds: No Currently Unemployed: No Education: High School Diploma/GED Difficulty w/ Childcare or Family Care: No Spiritual care concerns: No Meds Home Medications and Allergies Home Medications ?Medication ?Instructions ?Recorded ?Confirmed ?Type No Home Medications 03/03/25 03/03/25 History Allergies Allergy/AdvReac Type Severity Reaction Status Date / Time No Known Allergies Allergy Verified 03/03/25 13:35 Vital Signs Vital Signs - 24 hr 03/03/25 12:06 03/03/25 12:45 03/03/25 13:28 Temperature Pulse Rate 60 80 77 Respiratory Rate 18 17 Blood Pressure 120/63 120/74 Pulse Oximetry 100 100 Oxygen Delivery 03/03/25 13:34 03/03/25 15:30 03/03/25 20:00 Temperature 36.6 C Pulse Rate 73 90 Respiratory Rate 16 Blood Pressure 125/70 Pulse Oximetry 99 Oxygen Delivery Room Air 03/03/25 20:00 03/03/25 20:19 03/04/25 00:00 Temperature 36.7 C Pulse Rate 81 84 86 Respiratory Rate 19 Blood Pressure 116/66 Pulse Oximetry 99 Oxygen Delivery 03/04/25 04:00 03/04/25 06:00 03/04/25 08:00 Temperature 36.3 C L Pulse Rate 57 L 80 Respiratory Rate 16 Blood Pressure 121/74 Pulse Oximetry 99 Oxygen Delivery Room Air Exam Narrative: Reveals her to be awake alert cooperative in no obvious acute distress, head normocephalic with no cranial bruit, ear nose throat examination normal, neck supple with no cervical bruit no thyromegaly no lymphadenopathy, heart regular with no murmur, lungs clear to auscultation, abdomen soft nontender normal bowel sounds, neurologically she is awake alert oriented x3. Pupils are round regular reacting to light equally, feels the vision are full in all 4 quadrants with no obvious nystagmus, extraocular movements are full with no nystagmus, facial sensation intact face is symmetrical, motor examination reveals her to have normal strength and tone in upper and lower extremities with symmetrical deep tendon reflexes plantars downgoing no evidence of gross sensory or cerebellar deficit. Results Labs 03/03/25 11:14 03/03/25 11:14 Labs: Short CBC 03/03/25 Range/Units 11:14 WBC 7.5 (4.5-10.0) K/mm3 Hgb 12.9 (12.0-15.0) g/dL Hct 39.2 (37.0-47.0) % Plt Count 369 (150-375) k/mm3 BMP 03/03/25 11:14 Sodium 137 Potassium 3.8 Chloride 105 Carbon Dioxide 24 BUN 12 Creatinine 0.54 L Glucose 99 Calcium 8.7 Cardiac Enzymes 03/03/25 Range/Units 11:14 Total Creatine Kinase 55 (30-135) U/L Liver Function 03/03/25 Range/Units 11:14 Total Bilirubin 0.3 (0.2-1.3) mg/dL AST 28 (14-36) U/L ALT 32 (6-35) U/L Alkaline Phosphatase 103 (38-126) U/L Albumin 4.0 (3.5-5.1) g/dL Urine 03/03/25 Range/Units 11:14 Urine Color Yellow (Yellow) Urine Appearance Clear (Clear) Urine pH 6.0 (5.0-9.0) Ur Specific [place] 1.014 (1.001-1.035) Urine Protein Negative (Negative) mg/dL Urine Glucose (UA) Negative (Negative) mg/dL
[2025-03-04] MEDS: KETOROLAC 15 MG/ML VIAL (*BKC) IV PUSH (14:08)
--- NOTE | 2025-03-04 15:40 | P.PNIM_ITS ---
Progress Note: A&P Assessment and Plan (1) Facial droop: Code(s): R29.810 - Facial weakness Status: Acute Assessment and Plan: Patient complains of droopiness of face and spilling of food since then. Headache associated to orbital pain. Patient reported difficulty lifting her right eyebrow 0 and right lip. No prior history of migraine in the past. No weakness her arms or legs. This report yesterday she felt her and will occur and she was dropping her dishes. She denies any fever chills. No recent viral illnesses. No weakness in arms or legs. No complete loss of vision. 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 demyelinating disease: Code(s): G37.9 - Demyelinating disease of central nervous system, unspecified Status: Acute Assessment and Plan: SEE ABOVE (4) Migraine: Qualifiers: Intractability: intractable Migraine type: unspecified Status migrainosus presence: without status migrainosus Qualified Code(s): G43.919 - Migraine, unspecified, intractable, without status migrainosus Code(s): G43.909 - Migraine, unspecified, not intractable, without status migrainosus Status: Acute Assessment and Plan: * Toradol PRN Plan Code status: Full code per patient DVT prophylaxis: NA Stress ulcer prophylaxis: NA PT/OT notes: Ambulatory Disposition: Patient continues admission to medical unit will undergo a lumbar puncture and MRI of thoracic spine continue the acyclovir and prednisone at this time. Patient is ambulatory and plan will be to return home at discharge when medically stable Time Spent With Patient Time with patient: 15 - 25 minutes Subjective Date/time seen: 03/04/25 15:40 Interval history: Angelita Felix is a 29 year female with complains of right-sided facial numbness and weakness associated headache and blurriness of vision that started since past . Patient complains of droopiness of face and spilling of food since then. She is being treated for possible Miller's Palsy with consult to neurology. 03/04/2025: Patient in no acute distress right sided weakness and facial dropping improved mildly but had RUE weakness still present. MRI brain with no acute findings. She has no difficulty swallowing, No visual changes. Review of Systems Review of Systems: All systems reviewed & are unremarkable except as noted in HPI and below Exam Narrative: GENERAL: Well-appearing, well-nourished, and in no acute distress. HEAD: Normocephalic, atraumatic. EYES: PERRLA and EOMI. NECK: No JVD CHEST: Clear to auscultation. HEART: RRR ABDOMEN: Soft, nontender, nondistended, normal active bowel sounds. EXTREMITIES: Normal range of motion. Right sided UE weakness, No edema. SKIN: Warm, dry, no rash. NEURO: Alert and oriented x3. + right sided facial asymmetry does not spare forehead, hand project internship equal and strong PSYCH: Normal mood and affect. Objective Data Vital Signs Vital Signs: Vital Signs - 24 hr 03/03/25 20:00 03/03/25 20:00 03/03/25 20:19 Temperature 98.0 F Pulse Rate 81 84 Respiratory Rate 19 Blood Pressure 116/66 Pulse Oximetry 99 Oxygen Delivery Room Air 03/04/25 00:00 03/04/25 04:00 03/04/25 06:00 Temperature 97.4 F L Pulse Rate 86 57 L 80 Respiratory Rate 16 Blood Pressure 121/74 Pulse Oximetry 99 Oxygen Delivery 03/04/25 08:00 Temperature Pulse Rate Respiratory Rate Blood Pressure Pulse Oximetry Oxygen Delivery Room Air Intake/Output Intake/Output: Intake & Output 03/01/25 03/02/25 03/03/25 03/04/25 23:59 23:59 23:59 23:59 Intake Total 1200 240 Balance 1200 240 Meds/Results Medications: Active Medications Generic Name Dose Route Start Last Admin Trade Name Freq PRN Reason Stop Dose Admin Ketorolac Tromethamine 15 mg 03/03/25 14:46 03/04/25 14:08 Ketorolac 15 Mg/Ml Vial (*Bkc) IV PUSH 15 mg Q6H PRN Administration Pain Rated 4-6 Prednisone 60 mg 03/03/25 14:45 03/04/25 08:39 Prednisone 20 Mg Tablet PO 60 mg DAILY@0800 CRISTIANE Administration Valacyclovir HCl 1,000 mg 03/03/25 14:45 03/04/25 13:19 Valacyclovir Hcl 500 Mg Tablet PO 1,000 mg Q8HR CRISTIANE Administration Radiology Results: ITS Impressions Brain MRI 03/03/25 16:16 IMPRESSION: 1. Significant metallic magnetic field artifact obscuring portions of the brain on the diffusion weighted and susceptibility weighted images as detailed above. Otherwise unremarkable brain MR with normal-appearing brain with no evident acute intracranial process or abnormally enhancing brain lesions. Cervical Spine MRI 03/04/25 10:51 IMPRESSION: 1. No significant cervical spondylosis with no central canal or neural foraminal stenosis. Labs Labs: Laboratory Results - last 24 hr 03/03/25 11:14 Vitamin B12 718.0 Folate 5.9 TSH (Reflex) 0.678 Quality If No VTE Prophylaxis Answer both mechanical and pharmacologic: Reason no mechanical VTE proph: low risk/not indicated -Patient's previous records reviewed on admission -ER notes reviewed in detail on admission -discussed all findings and current treatment plan with patient/Family/POA -Consultations reviewed for recommendations -Patient's disposition for safe discharge discussed with case preparer and liner Dictation performed by [employer] direct speech recognition software, therefore ice cream dispenser variants and typographical errors may occur. Hospitalist MIPS Advance Care Plan I have confirmed that the patient's Advanced Care Plan is present, code status is documented, or surrogate decision maker is listed in patient medical record.: Yes Medication Reconciliation I have utilized all available resources to obtain, update and review the patients current medications (includes all prescriptions, OTC, herbals, cannabis, and nutritional supplements).: Yes The patient is not eligible for med reconciliation; the patient is in a emergent medical situation where delaying treatment would jeopardize the patients health.: No
[2025-03-04 19:58] LABS: Influenza A QL RT-PCR Negative (Negative); Influenza B QL RT-PCR Negative (Negative); RSV RNA, RT-PCR Negative (Negative); SARS-CoV-2 RNA PCR Negative (Negative)
[2025-03-05] VITALS (7 sets, daily range): BP systolic 108–121; BP diastolic 68–71; PULSE 61–87; RESP 18; TEMP 36.3–36.6; O2SAT 99–100
[2025-03-05] MEDS: valACYclovir HCL 500 MG TABLET 1000 MG PO (05:22)
[2025-03-05 06:25] LABS: Hematocrit 38.5 % (37.0-47.0); Hemoglobin 12.2 g/dL (12.0-15.0); Mean Corpuscular HGB Conc 31.7 g/dl (32-36); Mean Corpuscular Volume 94.8 fl (80-100); Mean Platelet Volume 11.5 fl (7.4-10.4); Platelet Count Result 272 k/mm3 (150-375); Red Blood Count 4.06 M/mm3 (4.2-5.4); Red Cell Distribution Width 12.1 % (11.5-14.5); White Blood Count 13.9 K/mm3 (4.5-10.0)
[2025-03-05 06:34] LABS: Alanine Aminotransferase 25 U/L (6-35); Albumin Level 3.8 g/dL (3.5-5.1); Alkaline Phosphatase 86 U/L (38-126); Anion Gap 7 mmol/L (4-12); Aspartate Amino Transferase 18 U/L (14-36); Bilirubin,Total 0.3 mg/dL (0.2-1.3); Blood Urea Nitrogen 14 mg/dL (7-17); Calcium 8.6 mg/dL (8.4-10.2); Carbon Dioxide 24 mmol/L (22-30); Chloride 108 mmol/L (98-107); Estimated CRCL calculation 151 ml/min; Estimated Glomerular Filt Rate > 60; Glucose 100 mg/dL (65-110); Potassium 3.5 mmol/L (3.4-5.0); Sodium 139 mmol/L (137-145)
[2025-03-05] MEDS: predniSONE 20 MG TABLET 60 MG PO (08:04)
--- NOTE | 2025-03-05 12:05 | P.PNNEUR_ITS ---
Progress Note: A&P Assessment and Plan (1) Facial droop: Code(s): R29.810 - Facial weakness Status: Acute (2) Headache: Code(s): R51.9 - Headache, unspecified Status: Acute Plan CSF opening pressure in lateral position was 34 cm and that certainly would raise possibility intracranial hypertension. Patient is obese and young lady and does have a empty sella. We will try to get a fundus examination and treat her accordingly. Although spinal fluid has been sent off for MS workup I did not see any protein glucose or cell count. I have asked the nursing staff to coordinate with the lab to see if it is possible to add on. Subjective Date/time seen: 03/05/25 12:05 Interval history: The patient is 29-year-old with complaints of headache on the right side of the head and she also had numbness in the right face. She presented to the emergency room with these symptoms. Patient does not have a history of migraine or chronic recurrent headaches and hence this was a new onset headache presented with neurological findings. CT angiogram head and neck was performed in the emergency room which included CT scan of the brain also which did not show any abnormality. Patient was subsequently admitted after she made arrangement for her child at home on 03/2025 and was seen by Dr. Ryan on 03/04/2025. She has had MRI of the brain and cervical and thoracic spine which did not show any abnormality. There are some movement artifacts noted on the MRI of the brain nevertheless overall impression was no significant abnormalities. I also reviewed the films and agree with conclusion by the radiologist. Review of Systems Review of Systems: All systems reviewed & are unremarkable except as noted in HPI and below Exam Narrative: Fully conscious alert oriented to self time place and person. no aphasia or dysarthria. No evidence of external injuries to the head. Cranial nerves appears to minimal flattening of the right nasolabial fold but there is also subjective sensory loss in 2nd and 3rd division of the trigeminal nerve on the right side and sparing of the ophthalmic division. No weakness in upper lower limbs and she is able to walk without any difficulty. Objective Data Vital Signs Vital Signs: Vital Signs - 24 hr 03/04/25 14:00 03/04/25 16:00 03/04/25 17:11 Temperature 97.7 F Pulse Rate 81 80 67 Respiratory Rate 18 16 Blood Pressure 130/63 128/68 Pulse Oximetry 98 98 Oxygen Delivery 03/04/25 17:13 03/04/25 20:00 03/04/25 20:00 Temperature Pulse Rate 74 88 Respiratory Rate 16 Blood Pressure 123/69 Pulse Oximetry 97 Oxygen Delivery Room Air 03/04/25 21:02 03/05/25 00:00 03/05/25 04:00 Temperature 98.3 F Pulse Rate 80 61 72 Respiratory Rate 18 Blood Pressure 128/69 Pulse Oximetry 99 Oxygen Delivery 03/05/25 05:40 03/05/25 08:00 Temperature 97.9 F Pulse Rate 62 Respiratory Rate 18 Blood Pressure 108/71 Pulse Oximetry 100 Oxygen Delivery Room Air Intake/Output Intake/Output: Intake & Output 03/02/25 03/03/25 03/04/25 03/05/25 23:59 23:59 23:59 23:59 Intake Total 1200 960 Output Total 3 Balance 1200 960 -3 Meds/Results Medications: Active Medications Generic Name Dose Route Start Last Admin Trade Name Freq PRN Reason Stop Dose Admin Acetaminophen 650 mg 03/04/25 15:53 Acetaminophen 325 Mg Tablet PO Q6H PRN Mild Pain (1-3) or Fever Ketorolac Tromethamine 15 mg 03/03/25 14:46 03/04/25 14:08 Ketorolac 15 Mg/Ml Vial (*Bkc) IV PUSH 15 mg Q6H PRN Administration Pain Rated 4-6 Ondansetron HCl 4 mg 03/04/25 15:53 Ondansetron Inj 4 Mg/2 Ml Vial IV PUSH Q6H PRN Nausea And Vomiting Prednisone 60 mg 03/03/25 14:45 03/05/25 08:04 Prednisone 20 Mg Tablet PO 60 mg DAILY@0800 [facility] Administration Valacyclovir HCl 1,000 mg 03/03/25 14:45 03/05/25 05:22 Valacyclovir Hcl 500 Mg Tablet PO 1,000 mg Q8HR CRISTIANE Administration Radiology Results: ITS Impressions Brain MRI 03/03/25 16:16 IMPRESSION: 1. Significant metallic magnetic field artifact obscuring portions of the brain on the diffusion weighted and susceptibility weighted images as detailed above. Otherwise unremarkable brain MR with normal-appearing brain with no evident acute intracranial process or abnormally enhancing brain lesions. ADDENDUM: 03/05/25 0914 ADDENDUM: Upon review of brain MR as well as cervical spine MR there are findings consistent with an empty sella with the pituitary with concave cephalad margin measuring 2.5 cm in craniocaudal thickness occupying the inferior 25% of the otherwise fluid-filled sella. This can be seen with idiopathic intracranial hypertension which is also supported by the elevated opening pressures on subsequent lumbar puncture. Cervical Spine MRI 03/04/25 10:51 IMPRESSION: 1. No significant cervical spondylosis with no central canal or neural foraminal stenosis. Lumbar Puncture Fluoroscopy 03/05/25 08:21 IMPRESSION: 1. Successful fluoro-guided lumbar puncture with elevated opening pressure of 34 cm water. Thoracic Spine MRI 03/05/25 08:59 IMPRESSION: 1. Multilevel mild thoracic facet osteoarthritis. Otherwise normal thoracic spine MRI. Labs Labs: Laboratory Results - last 24 hr 03/04/25 03/05/25 19:13 06:06 WBC 13.9 H RBC 4.06 L Hgb 12.2 Hct 38.5 MCV 94.8 MCH 30.0 MCHC 31.7 L RDW 12.1 Plt Count 272 MPV 11.5 H Sodium 139 Potassium 3.5 Chloride 108 H Carbon Dioxide 24 Anion Gap 7 BUN 14 Creatinine 0.59 L Estim Creat Clear Calc 151 Estimated GFR > 60 Glucose 100 Calcium 8.6 Total Bilirubin 0.3 AST 18 ALT 25 Alkaline Phosphatase 86 Total Protein 7.0 Albumin 3.8 Influenza A (RT-PCR) Negative Influenza B (RT-PCR) Negative RSV (RT-PCR) Negative SARS-CoV-2 RNA (RT-PCR) Negative
[2025-03-05 14:02] LABS: Appearance CSF Clear (Clear); CSF source CSF; Color CSF Colorless (Colorless); Lymphocytes CSF 6 % (40-80); Macrophages CSF 2; Neutrophils CSF 92 % (0-6); Nucleated Cell CSF 9 /uL (0-5); Red Blood Cell CSF 1 (0-2)
[2025-03-05 16:09] LABS: Glucose CSF 84 mg/dL (40-70); Total Protein CSF 42 mg/dL (12-60)
--- NOTE | 2025-03-06 07:57 | P.DS_ITS ---
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: Code(s): G37.9 - Demyelinating disease of central nervous system, unspecified Status: Acute (4) Migraine: Qualifiers: Intractability: intractable Migraine type: unspecified Status migrainosus presence: without status migrainosus Qualified Code(s): G43.919 - Migraine, unspecified, intractable, without status migrainosus Code(s): G43.909 - Migraine, unspecified, not intractable, without status migrainosus Status: Acute (5) IIH (idiopathic intracranial hypertension): Code(s): G93.2 - Benign intracranial hypertension Status: Acute Plan Disposition: Discharged to home follow up with neurology following week DS: Summary Hospital Course Reason for hospitalization: Right sided facial droop and LUE weakness Hospital Course: Admission: Patient was a 29 year female with complains of right-sided facial numbness and weakness associated headache and blurriness of vision that started since past . Patient complains of droopiness of face and spilling of food since then. Headache associated to orbital pain. Patient reported difficulty lifting her right eyebrow 0 and right lip. No prior history of migraine in the past. No weakness her arms or legs. This report yesterday she felt her and will occur and she was dropping her dishes. She had denied any fever chills, No recent viral illnesses, No weakness in arms or legs, No complete loss of vision. She has blood in his and right eye however she does have history of glaucoma right eye IN the ED vitals were stable. CT head was negative. Also underwent CTA head and neck which was unremarkable. Was recommended admission for MRI. However she left against medical advise. She presents back today with continued symptoms. She reports her hand is ge tting little bit weaker and has been dropping her dishes. Repeat labs unremarkable with normal CBC CMP urine drug screen negative. EKG within normal limit Hospital course: She is admitted for further treatment Patient complains of droopiness of face and spilling of food since then. Headache associated to orbital pain. Patient reported difficulty lifting her right eyebrow 0 and right lip. No prior history of migraine in the past. No weakness her arms or legs. No complete loss of vision. MRI brain negative, Cervical MRI with no significant findings we continued acyclovir and steroids for possible Miller's palsy and Neurology was consulted. Patient did have elevated ESR and we checked her CK TSH CRP SHAMEKA rheumatoid vitamin B12 which were all WNL and Negative viral panel. neurology then recommended we do a thoracic MRI as well as lumbar puncture for further evaluation. CSF opening pressure in lateral position was 34 cm and that certainly would raise possibility intracranial hypertension. Patient is obese and young lady and does have a empty sella. neurology completed a fundus examination did not appear to have any intracranial pressure. final lumbar puncture readings did show CSF fluid colorless with 92 % neutrophils out of 9 nucleated cells, glucose of 84 however normal protein levels. MS panel was still pending at time of discharge as well as Lyme panel with thoracic MRI if no significant findings. I discussed all findings with Neurology prior to discharge plan was for patient to have eye appointment following morning for further evaluation as well as follow-up with Neurology the following week for further treatment of what appeared to likely be IHH. I reviewed all findings with patient bedside stated she was feeling mildly better shows discharged on oral acyclovir and prednisone to complete therapy and follow-up with Neurology scheduled patient acknowledged and agreed with discharge plan. patient discharged home Status at Discharge Functional status at discharge: independent ambulation Overall status at discharge: patient is progressing back to baseline Time Spent with Patient Time attestation: Total time spent providing and/or coordinating discharge services: Time spent: Greater than 30 minutes Exam Narrative: GENERAL: Well-appearing, well-nourished, and in no acute distress. HEAD: Normocephalic, atraumatic. EYES: PERRLA and EOMI. NECK: No JVD CHEST: Clear to auscultation. HEART: RRR ABDOMEN: Soft, nontender, nondistended, normal active bowel sounds. EXTREMITIES: Normal range of motion. Right sided UE weakness, No edema. SKIN: Warm, dry, no rash. NEURO: Alert and oriented x3. + right sided facial asymmetry does not spare forehead, hand diagnostic radiologist equal and strong PSYCH: Normal mood and affect. DS: Data Data Completed and Pending Labs on day of discharge: Labs from last 24 hours 03/04/25 03/03/25 16:55 11:14 CSF Source Csf CSF Appearance Clear CSF Color Colorless CSF RBC 1 CSF Tot Nucleated Cells 9 H CSF Neutrophils 92 H CSF Lymphocytes 6 L CSF Macrophages 2 CSF Glucose 84 H CSF Total Protein 42 SHAMEKA Screen Negative Imaging Radiologist's impression: Radiology Results: ITS Impressions Brain MRI 03/03/25 16:16 IMPRESSION: 1. Significant metallic magnetic field artifact obscuring portions of the brain on the diffusion weighted and susceptibility weighted images as detailed above. Otherwise unremarkable brain MR with normal-appearing brain with no evident acute intracranial process or abnormally enhancing brain lesions. Cervical Spine MRI 03/04/25 10:51 IMPRESSION: 1. No significant cervical spondylosis with no central canal or neural foraminal stenosis. EXAMINATION: MR thoracic spine wo con DATE: 03/05/2025 08:53 INDICATION: Neurological symptoms. Upper arm numbness. TECHNIQUE: Magnetic resonance imaging (MRI) of the thoracic spine was performed without intravenous contrast. Sagittal localizer T1-weighted FSE of the cervicothoracic spine was obtained. Thoracic spine sequences included sagittal T2-weighted FSE, sagittal T1-weighted SE, Sagittal T2-weighted FS FSE, and axial T2-weighted FSE. COMPARISON: None FINDINGS: Alignment is normal.Vertebral body heights are normal. Normal marrow signal.Normal disc heights and signal. There is normal spinal cord signal. The conus terminates at L2. The discs do not extend beyond the endplate margins with no central canal stenosis. There is multilevel mild thoracic facet osteoarthritis. No neural foraminal stenosis. Paravertebral soft tissues are unremarkable. IMPRESSION: 1. Multilevel mild thoracic facet osteoarthritis. Otherwise normal thoracic spine MRI. Discharge Plan Discharge Attending physician on discharge: Brayan Sanchez Consulting providers: Luke Ryan; Leta Pino; Gerardo Richter; Vahid Downs Paul Discharging Clinician: Leta Pino Anticipated Discharge Date/Time: 03/05/25 13:58 Patient Disposition: Home Activity: may shower and as tolerated Diet: heart healthy Discharge Instructions: * I have prescribed acyclovir x7 more days please take as indicated * I have also prescribed prednisone taper please take as indicated * Please follow-up your eye appointment tomorrow 03/06/2025 for further examination and fundus examination for idiopathic intracranial hypertension as indicated by the neurologist * I have attached educational information on etiopathic intracranial hypertension well as MS and Miller's palsy * Please call Dr. Mcclain office to schedule a follow-up appointment for Sunday or Sunday of next week * It is recommended to increase activity and weight loss * Your lumbar puncture results may take up to 2 weeks for results we are testing for multiple sclerosis How can you care for yourself at home? ? Keep track of any new symptoms or changes in your symptoms. ? Rest until you feel better. ? Be safe with medicines. Take your medicines exactly as prescribed. Call your doctor if you think you are having a problem with your medicine. ? Do not drive after taking a prescription pain medicine. ? Ensure to follow-up with primary care physician as indicated and provide updated medication list provided to you at discharge. When should you call for help? Call 911 anytime you think you may need emergency care. For example, call if: ? You passed out (lost consciousness). Call your doctor now or seek immediate medical care if: ? You have new symptoms like fever, difficulty breathing, Chest pain, vomiting, or rash. ? You have new or different pain. ? You are confused and are having trouble thinking clearly. ? Your symptoms are getting worse. Watch closely for changes in your health, and be sure to contact your doctor if: ? You do not get better as expected. Patient Instructions: Antibiotic Form, Miller Palsy (DC), Multiple Sclerosis (DC), Idiopathic Intracranial Hypertension (DC) Patient Language: Montserratian Stand Alone Forms: General Discharge Information Follow-up/Referrals: Gerardo Richter MD [Physician] - Call for Appointment (Please call plan for follow-up appointment next week Sunday or Sun. to schedule a time) Discharge Medications: New valacyclovir [Valtrex] 500 mg Tablet 1,000 mg PO Q8HR Qty: 21 0RF prednisone 10 mg tablets,dose pack 10 mg PO DIRECTED Qty: 21 0RF Rx Instructions: 1st day: 6 tablets, 2nd day 5 tablets, 3rd day 4 tablets; 4th day 3 tablets, 5th day 2 tablets, 6th day 1 tablet No Action No Home Medications Date of admission: 03/03/25 12:23 Primary Care Provider: UNKNOWN,DOCTOR Admitting Provider: Brayan Sanchez Attending physician on admission: Brayan Sanchez Condition: Stable Quality -Patient's previous records reviewed on admission -ER notes reviewed in detail on admission -discussed all findings and current treatment plan with patient/Family/POA -Consultations reviewed for recommendations -Patient's disposition for safe discharge discussed with nurse outreach case manager Dictation performed by Advisor Client Match direct speech recognition software, therefore slurry plant operator variants and typographical errors may occur. Hospitalist MIPS Heart Failure (Exclusion) Patient has history of Heart Transplant or Left Ventricular Assistive Device?: No IF YES, STOP HERE Heart Failure (Qualifier) Patient has current or prior documentation of LVEF less than or equal to 40%, or mod/servere depressed LVSF?: No IF NO, STOP HERE
[2025-03-06 07:59] LABS: Lyme Disease Ab (IgM), Blot NEGATIVE (NEGATIVE); Lyme Disease Ab(IgG), Blot NEGATIVE (NEGATIVE)
[2025-03-10 15:12] LABS: Oligoclonal Bands (IgG), CSF Absent
[2025-03-10 15:14] LABS: Albumin, Serum 3.8; Immunoglobulin G, Serum 1390
[2025-03-10 15:15] LABS: Albumin, CSF 9.5; IgG Index, CSF 0.49; Synthesis Rate IgG, CSF -4.9
[2025-03-10 15:16] LABS: IgG, CSF 1.7
== END 2025-03-05 16:30 | disposition home or self-care (01) ==
LOC: ANHED 12:23 → ANH3MED 13:14
PROVIDERS: Internal Medicine; Nurse Practitioner Family; Psychiatry & Neurology Neurology; Admitting Provider General Practice; Emergency Provider Nurse Practitioner Family; Visit Provider General Practice
DX: R29.810 Facial weakness (principal); R29.898 Other symptoms and signs involving the musculoskeletal system; G43.919 Migraine, unspecified, intractable, without status migrainosus; G37.9 Demyelinating disease of central nervous system, unspecified; H40.9 Unspecified glaucoma; F17.290 Nicotine dependence, other tobacco product, uncomplicated; Z20.822 Contact with and (suspected) exposure to COVID-19
CPT/HCPCS: 36415; 62328; 70553; 72141; 72146; 80053; 80307; 81003; 82040; 82042; 82550; 82607; 82746; 82784; 82945; 83873; 83916; 84157; 84443; 85025; 85027; 85652; 86038; 86039; 86140; 86430; 86617; 87637; 89051; 96361; 96374; 96375; 96376; 99285; A9270; A9579; G0378; G0379; J0780; J1200; J1885; J7030; J7512